=== PATIENT | female | born 1945 | race Caucasian/White ===

== ENCOUNTER 2016-11-22 16:27 | Inpatient (IN) | payer MEDICARE, OTHER ==
[~2016-11-22] VITALS: Ht 162.6 cm; Wt 49.9 kg
[2016-11-22] MEDS ORDERED: CEFTRIAXONE 1GM BAG (ER ONLY) 50 ML IV ONE ×2 (16:56→17:00)
[2016-11-22] MEDS ORDERED: IV SET PRIMARY PUMP SET 1 EA INFUS.SET MC ONE (16:56)
[2016-11-22] MEDS ORDERED: IV NS 0.9% 1,000 ML ONE (16:56)
[2016-11-22] MEDS ORDERED: methylPREDNISolone SOD SUCC 125 MG/2ML VIAL ONE ×2 (16:56→21:40)
[2016-11-22] MEDS ORDERED: AZITHROMYCIN 500 MG in IV D5W 250 ML IV ONE (17:00)
[2016-11-22] MEDS ORDERED: IPRATROPIUM NEB FS 0.5 MG/2.5 ML AMPUL.NEB NEB ONE (17:00)
[2016-11-22] MEDS ORDERED: IV NS 0.9% 1,000 ML BAG IV ONE (17:00)
[2016-11-22] MEDS ORDERED: ALBUTEROL FS 2.5 MG/3 ML VIAL.NEB CONTNEB ONE (17:00)
[2016-11-22] MEDS ORDERED: methylPREDNISolone SOD SUCC 125 MG/2ML VIAL IV ONE (17:00)
[2016-11-22] MEDS ORDERED: IPRATROPIUM NEB FS 0.5 MG/2.5 ML AMPUL.NEB ONE (17:03)
[2016-11-22] MEDS ORDERED: ALBUTEROL FS 2.5 MG/3 ML VIAL.NEB ONE (17:03)
[2016-11-22 17:14] LABS: BASOPHILS % (AUTO) 0.1 % (0.0-2.0); DIFF TOTAL % 100 %; HEMATOCRIT 43 % (33-45); LYMPHOCYTES # (AUTO) 0.5 /CMM (0.8-4.8); LYMPHOCYTES % (AUTO) 5.3 % (20.0-44.0); MEAN CORPUSCULAR HEMOGLOBIN 31 PG (26.0-33.0); MEAN CORPUSCULAR HGB CONC 33 g/dl (31.0-36.0); MEAN CORPUSCULAR VOLUME 94 fL (82-100); MONOCYTES # (AUTO) 0.6 /CMM (0.1-1.30); NEUTROPHILS # (AUTO) 9.2 /CMM (1.8-8.9); NEUTROPHILS % (AUTO) 88.6 % (43.0-81.0); PLATELET COUNT (AUTO) 266 /CMM (150-450); RED BLOOD CELL COUNT(AUTO) 4.53 MIL/uL (4.0-5.2); WHITE BLOOD COUNT (AUTO) 10.4 K/uL (4.3-11.0)
[2016-11-22 17:22] LABS: ANION GAP 14 (5-14); CALCIUM, SERUM 9.5 mg/dL (8.5-10.1); CARBON DIOXIDE 26 mmol/L (21-32); CHLORIDE 97 mmol/L (98-107); CREATININE 0.7 mg/dL (0.6-1.3); GFR 83 mL/min (>60); GLUCOSE 163 mg/dL (74-106); POTASSIUM 3.8 mmol/L (3.5-5.1); SODIUM SERUM 133 mmol/L (136-145); UREA NITROGEN, BLOOD 8 mg/dL (7-18)
[2016-11-22 17:29] LABS: TROPONIN I < 0.017 ng/mL (0.00-0.056)
[2016-11-22 17:34] LABS: ALANINE AMINOTRANSFERASE 21 U/L (12-78); ALBUMIN 3.6 g/dL (3.4-5.0); ASPARTATE AMINOTRANSFERASE 19 U/L (15-37); BILIRUBIN,DIRECT 0.2 mg/dL (0.0-0.2); BILIRUBIN,TOTAL 0.7 mg/dL (0.2-1.0); INDIRECT BILIRUBIN 0.5 mg/dL (0.0-1.1); TOTAL PROTEIN, SERUM 7.7 g/dL (6.4-8.2)
[2016-11-22 17:48] LABS: LACTIC ACID 1.4 mmol/L (0.4-2.0)
[2016-11-22 20:00] VITALS: BP_SYST 124; BP_SYST 126; BP_DIAS 57; BP_DIAS 81
[2016-11-22] MEDS ORDERED: ZOLPIDEM TARTRATE 5 MG TABLET PO PRN (20:00)
[2016-11-22] MEDS ORDERED: ACETAMINOPHEN 325 MG TABLET PO PRN (20:00)
[2016-11-22] MEDS ORDERED: ONDANSETRON HCL/PF 4 MG/2 ML VIAL IVP PRN (20:00)
[2016-11-22] MEDS ORDERED: LORAZEPAM INJ 2 MG/ML VIAL IV PRN (20:00)
[2016-11-22] MEDS ORDERED: HYDROCODONE/APAP 5/325MG 1 EACH TABLET PO PRN (20:00)
[2016-11-22] MEDS ORDERED: MAGNESIUM HYDROXIDE 30 ML UDC PO PRN (20:00)
[2016-11-22] MEDS ORDERED: MAG HYDROX/AL HYDROX/SIMETH 30 ML UDC PO PRN (20:00)
[2016-11-22] MEDS ORDERED: Z GUARD REMEDY 2 OZ OINT TP PRN (20:00)
[2016-11-22] MEDS: AZITHROMYCIN 500 MG in IV D5W 250 ML IV SCH (20:00)
[2016-11-22] MEDS ORDERED: ENOXAPARIN SODIUM 40 MG/0.4 ML DISP.SYRIN SQ SCH (21:00)
[2016-11-22] MEDS: methylPREDNISolone SOD SUCC 125 MG/2ML VIAL IV SCH (21:00)
[2016-11-22] MEDS: ALBUTEROL FS 2.5 MG/0.5 ML VIAL.NEB NEB SCH (22:42)
[2016-11-23] VITALS (9 sets, daily range): BP systolic 103–133; BP diastolic 50–70
[2016-11-23] MEDS: ALBUTEROL FS 2.5 MG/0.5 ML VIAL.NEB NEB SCH ×6 (03:19→23:45)
[2016-11-23 08:27] LABS: DIFF TOTAL % 100 %; HEMATOCRIT 40 % (33-45); HEMOGLOBIN 13.1 g/dL (11.5-14.8); LYMPHOCYTES # (AUTO) 0.5 /CMM (0.8-4.8); LYMPHOCYTES % (AUTO) 5.6 % (20.0-44.0); MEAN CORPUSCULAR HEMOGLOBIN 32 PG (26.0-33.0); MEAN CORPUSCULAR HGB CONC 33 g/dl (31.0-36.0); MEAN CORPUSCULAR VOLUME 95 fL (82-100); MONOCYTES # (AUTO) 0.2 /CMM (0.1-1.30); MONOCYTES % (AUTO) 1.9 % (2.0-12.0); NEUTROPHILS # (AUTO) 8.1 /CMM (1.8-8.9); NEUTROPHILS % (AUTO) 92.5 % (43.0-81.0); PLATELET COUNT (AUTO) 264 /CMM (150-450); RED BLOOD CELL COUNT(AUTO) 4.14 MIL/uL (4.0-5.2); WHITE BLOOD COUNT (AUTO) 8.8 K/uL (4.3-11.0)
[2016-11-23 08:40] LABS: CALCIUM, SERUM 9.5 mg/dL (8.5-10.1); CREATININE 0.6 mg/dL (0.6-1.3); POTASSIUM 4.7 mmol/L (3.5-5.1)
[2016-11-23] MEDS: PANTOPRAZOLE 40 MG TABLET.DR PO SCH (09:23)
[2016-11-23] MEDS: methylPREDNISolone SOD SUCC 125 MG/2ML VIAL IV SCH ×4 (09:24→21:55)
[2016-11-23] MEDS ORDERED: IV SET PRIMARY PUMP SET 1 EA INFUS.SET MC ONE (20:00)
[2016-11-23] MEDS: AZITHROMYCIN 500 MG in IV D5W 250 ML IV SCH (20:07)
[2016-11-23] MEDS: ENOXAPARIN SODIUM 40 MG/0.4 ML DISP.SYRIN SQ SCH (21:56)
[2016-11-24] MEDS: ALBUTEROL FS 2.5 MG/0.5 ML VIAL.NEB NEB SCH ×6 (03:13→23:30)
[2016-11-24 06:52] LABS: DIFF TOTAL % 100 %; HEMATOCRIT 40 % (33-45); HEMOGLOBIN 13.1 g/dL (11.5-14.8); LYMPHOCYTES # (AUTO) 0.7 /CMM (0.8-4.8); LYMPHOCYTES % (AUTO) 5.6 % (20.0-44.0); MEAN CORPUSCULAR HEMOGLOBIN 31 PG (26.0-33.0); MEAN CORPUSCULAR HGB CONC 33 g/dl (31.0-36.0); MEAN CORPUSCULAR VOLUME 96 fL (82-100); MONOCYTES # (AUTO) 0.6 /CMM (0.1-1.30); MONOCYTES % (AUTO) 4.8 % (2.0-12.0); NEUTROPHILS # (AUTO) 11.3 /CMM (1.8-8.9); NEUTROPHILS % (AUTO) 89.6 % (43.0-81.0); PLATELET COUNT (AUTO) 300 /CMM (150-450); RED BLOOD CELL COUNT(AUTO) 4.18 MIL/uL (4.0-5.2); WHITE BLOOD COUNT (AUTO) 12.6 K/uL (4.3-11.0)
[2016-11-24 07:15] LABS: CALCIUM, SERUM 9.6 mg/dL (8.5-10.1); CREATININE 0.8 mg/dL (0.6-1.3); PHOSPHORUS 3.9 mg/dL (2.5-4.9); POTASSIUM 3.7 mmol/L (3.5-5.1)
[2016-11-24 08:00] VITALS: BP 130/68
[2016-11-24] MEDS: PANTOPRAZOLE 40 MG TABLET.DR PO SCH (08:14)
[2016-11-24] MEDS: methylPREDNISolone SOD SUCC 125 MG/2ML VIAL IV SCH ×3 (08:15→18:01)
[2016-11-24 16:00] VITALS: BP 104/47
[2016-11-24 19:54] VITALS: BP 103/50
[2016-11-24] MEDS: AZITHROMYCIN 500 MG in IV D5W 250 ML IV SCH (20:56)
[2016-11-24] MEDS: ENOXAPARIN SODIUM 40 MG/0.4 ML DISP.SYRIN SQ SCH (21:13)
[2016-11-25] MEDS: ALBUTEROL FS 2.5 MG/0.5 ML VIAL.NEB NEB SCH ×4 (03:30→15:30)
[2016-11-25 07:21] LABS: DIFF TOTAL % 100 %; HEMATOCRIT 39 % (33-45); HEMOGLOBIN 12.8 g/dL (11.5-14.8); LYMPHOCYTES # (AUTO) 1.1 /CMM (0.8-4.8); LYMPHOCYTES % (AUTO) 7.3 % (20.0-44.0); MEAN CORPUSCULAR HEMOGLOBIN 31 PG (26.0-33.0); MEAN CORPUSCULAR HGB CONC 33 g/dl (31.0-36.0); MEAN CORPUSCULAR VOLUME 95 fL (82-100); MONOCYTES # (AUTO) 0.9 /CMM (0.1-1.30); MONOCYTES % (AUTO) 6.4 % (2.0-12.0); NEUTROPHILS # (AUTO) 12.7 /CMM (1.8-8.9); NEUTROPHILS % (AUTO) 86.3 % (43.0-81.0); PLATELET COUNT (AUTO) 312 /CMM (150-450); RED BLOOD CELL COUNT(AUTO) 4.09 MIL/uL (4.0-5.2); WHITE BLOOD COUNT (AUTO) 14.7 K/uL (4.3-11.0)
[2016-11-25 07:39] LABS: CALCIUM, SERUM 9.1 mg/dL (8.5-10.1); CREATININE 0.7 mg/dL (0.6-1.3)
[2016-11-25 08:00] VITALS: BP 130/64
[2016-11-25] MEDS: methylPREDNISolone SOD SUCC 125 MG/2ML VIAL IV SCH ×2 (09:36→16:31)
[2016-11-25] MEDS: PANTOPRAZOLE 40 MG TABLET.DR PO SCH (09:36)
[2016-11-25] MEDS ORDERED: PRED20TA PO (13:53)
[2016-11-25] MEDS ORDERED: LEVO750T21 PO (13:53)
[2016-11-25] MEDS ORDERED: PNEUMOCOCCAL 23-VAL P-SAC VAC 0.5 ML VIAL SQ ONE (14:30)
[2016-11-25 16:00] VITALS: BP 127/73
== END 2016-11-25 17:20 | disposition home or self-care (01) | DRG 190 ==
LOC: ER 16:29 → TELE 17:05 → MED 11-23 11:02
PROVIDERS: ADMIT Internal Medicine; ATTEND Internal Medicine
DX: J44.1 Chronic obstructive pulmonary disease with (acute) exacerbation (principal); J15.9 Unspecified bacterial pneumonia; E87.1 Hypo-osmolality and hyponatremia; F17.210 Nicotine dependence, cigarettes, uncomplicated; E86.1 Hypovolemia; R73.9 Hyperglycemia, unspecified; J44.0 Chronic obstructive pulmonary disease with (acute) lower respiratory infection
CPT/HCPCS: 36415; 71010-TC; 80048-TC; 80076-TC; 83605-TC; 83735-TC; 83880; 84100-TC; 84484-TC; 85025-TC; 87040-TC; 87081-TC; 87400; 90732; 94799-TC; A4606; J0456; J0696; J1650; J2930; J7030; J7060; Z7610

== ENCOUNTER 2017-06-01 18:27 | Inpatient (IN) | payer MEDICARE, OTHER ==
[~2017-06-01] VITALS: Ht 157.5 cm; Wt 54.9 kg
[~2017-06-01 18:27] MED LIST: LEVO750T21 PO; PRED20TA PO
--- NOTE | 2017-06-01 18:38 | NUR ---
PT TO ED ROOM 05. [id number]: SOB, COUGH WITH CONGESTION, HYPOXIA. A/A/O. CHANGED TO GOWN. SIDE RAILS UP. HOB ELEVATED. CONNECTE TO MONITOR. O2 VIA N/C. DR GOMES AT BEDSIDE. R FA G 18 IV STARTED. BLOOD TESTS AND BLOOD CULTURES DRAWN PRIOR TO ATB ADMINISTRATION.
[2017-06-01] MEDS ORDERED: ALBUTEROL FS 2.5 MG/0.5 ML VIAL.NEB ONE (18:47)
[2017-06-01] MEDS ORDERED: IPRATROPIUM NEB FS 0.5 MG/2.5 ML AMPUL.NEB ONE (18:47)
[2017-06-01] MEDS ORDERED: methylPREDNISolone SOD SUCC 125 MG/2ML VIAL ONE (18:51)
--- NOTE | 2017-06-01 18:55 | NUR ---
UNABLE TO PROVIDE WITH URINE SAMPLE AT THIS TIME. WILL TRY LATER
[2017-06-01 18:57] LABS: BASOPHILS # (AUTO) 0.1 /CMM (0.0-0.2); BASOPHILS % (AUTO) 1.3 % (0.0-2.0); EOSINOPHILS # (AUTO) 0.1 /CMM (0.0-0.7); EOSINOPHILS % (AUTO) 0.6 % (0.0-6.0); HEMATOCRIT 44 % (33-45); HEMOGLOBIN 14.4 g/dL (11.5-14.8); LYMPHOCYTES # (AUTO) 0.4 /CMM (0.8-4.8); LYMPHOCYTES % (AUTO) 4.9 % (20.0-44.0); MEAN CORPUSCULAR HEMOGLOBIN 31 PG (26.0-33.0); MEAN CORPUSCULAR HGB CONC 33 g/dl (31.0-36.0); MEAN CORPUSCULAR VOLUME 96 fL (82-100); MONOCYTES # (AUTO) 0.2 /CMM (0.1-1.30); MONOCYTES % (AUTO) 2.1 % (2.0-12.0); NEUTROPHILS # (AUTO) 7.6 /CMM (1.8-8.9); NEUTROPHILS % (AUTO) 91.1 % (43.0-81.0); PLATELET COUNT (AUTO) 231 /CMM (150-450); RDW COEFFICIENT OF VARIATION 13.7 (11.5-15.0); WHITE BLOOD COUNT (AUTO) 8.4 K/uL (4.3-11.0)
[2017-06-01] MEDS ORDERED: methylPREDNISolone SOD SUCC 125 MG/2ML VIAL IV ONE (19:00)
[2017-06-01] MEDS ORDERED: ALBUTEROL FS 2.5 MG/0.5 ML VIAL.NEB NEB ONE (19:00)
[2017-06-01] MEDS ORDERED: IPRATROPIUM NEB FS 0.5 MG/2.5 ML AMPUL.NEB NEB ONE (19:00)
[2017-06-01 19:08] LABS: INR 0.95 (0.87-1.13); PROTHROMBIN TIME 9.9 SECS (9.5-12.7)
[2017-06-01 19:11] LABS: ALBUMIN 3.9 g/dL (3.4-5.0); BILIRUBIN,DIRECT 0.1 mg/dL (0.0-0.2); BILIRUBIN,TOTAL 0.4 mg/dL (0.2-1.0); CALCIUM, SERUM 8.3 mg/dL (8.5-10.1); CREATININE 0.6 mg/dL (0.6-1.3); TOTAL PROTEIN, SERUM 6.8 g/dL (6.4-8.2)
[2017-06-01 19:13] LABS: TROPONIN I 0.025 ng/mL (0.00-0.056)
[2017-06-01 20:00] VITALS: BP_SYST 127; BP_SYST 137; BP_DIAS 56; BP_DIAS 63
[2017-06-01] MEDS ORDERED: CEFTRIAXONE 500 MG VIAL IV ONE (20:00)
[2017-06-01] MEDS ORDERED: AZITHROMYCIN 500 MG in IV D5W 250 ML IV SCH (20:00)
[2017-06-01] MEDS ORDERED: AZITHROMYCIN 500 MG in IV D5W 250 ML IV ONE (20:00)
[2017-06-01] MEDS ORDERED: CEFTRIAXONE 500 MG VIAL ONE (20:10)
[2017-06-01 20:50] LABS: ABG BASE EXCESS -3.1 mmol/L; ABG OXYGEN SATURATION 92.8 % (92.0-98.5); ABG PCO2 33.9 mmHg (35.0-45.0); ABG PH 7.405 (7.350-7.450); ABG PO2 65.3 mmHg (75.0-100.0); AaDO2 43.8 mmHg; COHb 2.3 % (0.5-1.5); MetHb 0.5 % (0.0-1.5); O2Hb 90.2 % (94.0-97.0); SITE, ABG Right Brachial; VENT MODE, BG Room Air
--- NOTE | 2017-06-01 21:12 | NUR ---
RN OPENING NOTES PATIENT ARRIVED ON UNIT VIA GURNEY. REPORT RECEIVED FROM [facility] EXAM PROCTOR. PATIENT A/A/O X4, ABLE TO MAKE NEEDS KNOWN. AMBULATORY W/ STANDBY/MINIMAL ASSIST. SOB NOTED AFTER AMBULATING FROM GURNEY TO BED AND ALSO AT REST. O2 SAT 92-94% W/ O2 @ 2LPM VIA NC. ON TELE SINUS RHYTHM. RIGHT WRIST #18 IV SITE CDI W/ ATB RUNNING @ 250 ML/HR. DENIES ANY PAIN @ THIS TIME. SAFETY MEASURES IN PLACE. SIDE RAILS UP, BED LOCKED AND IN LOWEST POSITION, CALL LIGHT WITHIN REACH. BED ALARM ON. WILL CONTINUE TO MONITOR FOR ANY CHANGES.
[2017-06-01 21:30] VITALS: BP 127/56
[2017-06-01] MEDS ORDERED: MAGNESIUM HYDROXIDE 30 ML UDC PO PRN (22:30)
[2017-06-01] MEDS ORDERED: ONDANSETRON HCL/PF 4 MG/2 ML VIAL IVP PRN (22:30)
[2017-06-01] MEDS ORDERED: ACETAMINOPHEN 325 MG TABLET PO PRN (22:30)
[2017-06-01] MEDS ORDERED: HYDROCODONE/APAP 5/325MG 1 EACH TABLET PO PRN (22:30)
[2017-06-01] MEDS ORDERED: ZOLPIDEM TARTRATE 5 MG TABLET PO PRN (22:30)
--- NOTE | 2017-06-01 22:54 | NUR ---
RN NOTES CALLED LORENA, ON-CALL ROLLER PRESSER OPERATOR, REGARDING AZITHROMYCIN IV ORDER. PER ROLLER PRESSER OPERATOR, START NEXT DOSE ON 06/02 @ 8PM.
[2017-06-01] MEDS ORDERED: DEXTROSE 50%-WATER 50 ML DISP.SYRIN IV PRN (23:00)
[2017-06-02] VITALS: BP 113/56
[2017-06-02 04:00] VITALS: BP 126/61
[2017-06-02] MEDS ORDERED: ALBUTEROL FS 2.5 MG/0.5 ML VIAL.NEB ONE (07:07)
[2017-06-02 07:10] LABS: HEMATOCRIT 41 % (33-45); HEMOGLOBIN 13.9 g/dL (11.5-14.8); LYMPHOCYTES # (AUTO) 0.3 /CMM (0.8-4.8); LYMPHOCYTES % (AUTO) 5.8 % (20.0-44.0); MEAN CORPUSCULAR HEMOGLOBIN 33 PG (26.0-33.0); MEAN CORPUSCULAR HGB CONC 34 g/dl (31.0-36.0); MEAN CORPUSCULAR VOLUME 96 fL (82-100); MONOCYTES # (AUTO) 0.1 /CMM (0.1-1.30); MONOCYTES % (AUTO) 1.5 % (2.0-12.0); NEUTROPHILS # (AUTO) 5.5 /CMM (1.8-8.9); NEUTROPHILS % (AUTO) 92.7 % (43.0-81.0); PLATELET COUNT (AUTO) 190 /CMM (150-450); RDW COEFFICIENT OF VARIATION 14.6 (11.5-15.0); RED BLOOD CELL COUNT(AUTO) 4.26 MIL/uL (4.0-5.2)
[2017-06-02] MEDS: IPRATROPIUM NEB FS 0.5 MG/2.5 ML AMPUL.NEB NEB SCH ×3 (07:10→19:50)
[2017-06-02] MEDS: ALBUTEROL FS 2.5 MG/0.5 ML VIAL.NEB NEB SCH ×3 (07:11→19:50)
[2017-06-02] MEDS: PANTOPRAZOLE 40 MG TABLET.DR PO SCH (07:30)
--- NOTE | 2017-06-02 07:32 | NUR ---
RN CLOSING NOTES PATIENT RESTING IN BED. NO C/O SOB @ THIS TIME. DENIES ANY PAIN OR DISCOMFORT. O2 SAT @ 93-96% THROUGHOUT SHIFT ON 02 @ 2LPM VIA NC. RIGHT WRIST IV SITE KEPT CLEAN AND DRY. NO SIGNIFICANT CHANGES OVERNIGHT. WILL ENDORSE [place] TO AM NURSE.
[2017-06-02 07:43] LABS: CALCIUM, SERUM 8.7 mg/dL (8.5-10.1); CREATININE 0.6 mg/dL (0.6-1.3); PHOSPHORUS 4.1 mg/dL (2.5-4.9); POTASSIUM 4.3 mmol/L (3.5-5.1)
[2017-06-02] MEDS: BLOOD SUGAR DIAGNOSTIC 1 EACH STRIP IN SCH ×4 (07:57→21:59)
[2017-06-02 08:00] VITALS: BP 100/40
--- NOTE | 2017-06-02 08:00 | NUR ---
TELE1/RN AM SHIFT INITIAL NOTES RECEIVED PT AWAKE SITTING IN BED, A/O X 4, NO ACUTE RESPIRATORY DISTRESS NOTED. PT DENIES ANY PAIN. PT NOTED WITH NON-PRODUCTIVE COUGH, ON 2L O2 VIA N/C SATURATING @ 96%, LUNG SOUNDS DIMINISHED. ON TELE MONITORING WITH SINUS RHYTHM, HR 74. IV SITE FLUSHED, PATENT WITH NO S/S OF INFECTION, SL. PT IS COMFORTABLE AT THIS TIME. SCHEDULED AM MEDS TO BE GIVEN. CL WITHIN REACHED AND SAFETY MAINTAINED. ON GOING MONITORING.
[2017-06-02] MEDS: methylPREDNISolone SOD SUCC 125 MG/2ML VIAL IV SCH ×3 (08:54→17:47)
[2017-06-02] MEDS: INSULIN REGULAR, HUMAN 100 UNIT/ML 3 ML VIAL SQ PRN ×4 (08:57→22:02)
[2017-06-02 12:00] VITALS: BP 111/44
--- NOTE | 2017-06-02 12:59 | NUR ---
TELE1/RN ROUNDS - LANI GILL PT SEEN & EXAMINED BY LANI GILL, NO NEW ORDERS RECEIVED AT THIS TIME. MONITORING CONTINUED.
[2017-06-02 16:00] VITALS: BP 113/35
--- NOTE | 2017-06-02 16:00 | NUR ---
TELE1/RN AFTERNOON ROUNDS NO ACUTE CHANGE OF CONDITION. MONITORING CONTINUED.
--- NOTE | 2017-06-02 19:11 | NUR ---
TELE1/RN AM SHIFT END NOTES ALL NEEDS MET. NO ACUTE CHANGE OF CONDITION NOTED DURING THE SHIFT. PT ENDORSED TO PM NURSE TO CONTINUE CARE. CL WITHIN REACHED AND SAFETY MAINTAINED.
--- NOTE | 2017-06-02 19:20 | NUR ---
POWER PLANT TECHNICIAN NOTE PT RECEIVED IN NO ACUTE DISTRESS. A/O X4 AND ABLE TO MAKE NEEDS BE KNOWN. ON 2LPM 02 VIA NC THAT IS BEING TOLERATED WELL WITH 02 SATURATION AT 96% WITH ADEQUATE CHEST RISE/FALL. PT IS ABLE TO GET UP AND WALK TO BATHROOM WITH STANDBY ASSISTANCE. HAS A RIGHT WRIST 18G SL THAT IS CLEAN DRY AND PATENT. COMFORT AND SAFETY MEASURES TO BE ENSURED DURING THE SHIFT. WILL CONTINUE TO MONITOR DURING THE SHIFT.
[2017-06-02 20:00] VITALS: BP 103/45
[2017-06-02] MEDS: AZITHROMYCIN 500 MG in IV D5W 250 ML IV SCH (20:12)
[2017-06-03] VITALS: BP 113/62
[2017-06-03 04:00] VITALS: BP 114/54
--- NOTE | 2017-06-03 05:51 | NUR ---
ELECTRONICS ASSEMBLER CLOSING NOTE PT REMAINS IN NO ACUTE DISTRESS AT THE END OF THE SHIFT. ALL DUE ORDERS ADMINISTERED AND TOLERATED. PT HAS 2LPM 02 VIA NC CURRENTLY. IV IS CLEAN DRY AND INTACT. COMFORT AND SAFETY MEASURES ENSURED DURING THE SHIFT. WILL ENDORSE CARE TO AM NURSE.
[2017-06-03 08:00] VITALS: BP 127/68
[2017-06-03] MEDS: methylPREDNISolone SOD SUCC 125 MG/2ML VIAL IV SCH ×3 (08:12→17:50)
[2017-06-03] MEDS: PANTOPRAZOLE 40 MG TABLET.DR PO SCH (08:13)
[2017-06-03] MEDS: BLOOD SUGAR DIAGNOSTIC 1 EACH STRIP IN SCH ×4 (08:14→22:36)
[2017-06-03] MEDS: INSULIN REGULAR, HUMAN 100 UNIT/ML 3 ML VIAL SQ PRN (08:20)
[2017-06-03] MEDS: IPRATROPIUM NEB FS 0.5 MG/2.5 ML AMPUL.NEB NEB SCH ×3 (08:29→19:32)
[2017-06-03] MEDS: ALBUTEROL FS 2.5 MG/0.5 ML VIAL.NEB NEB SCH ×3 (08:29→19:32)
[2017-06-03 12:00] VITALS: BP 113/52
--- NOTE | 2017-06-03 12:00 | NUR ---
RN NOTE PT REFUSED REGULAR INSULIN INJECTION REISKS AND BENEFITS EXPLAINED, STILL REFUSED, BG = 138 MG/DL, WILL CONTINUE TO MONITOR.
[2017-06-03 13:10] LABS: BASOPHILS % (AUTO) 0.1 % (0.0-2.0); HEMATOCRIT 41 % (33-45); HEMOGLOBIN 13.6 g/dL (11.5-14.8); LYMPHOCYTES # (AUTO) 0.4 /CMM (0.8-4.8); MEAN CORPUSCULAR HEMOGLOBIN 32 PG (26.0-33.0); MEAN CORPUSCULAR HGB CONC 33 g/dl (31.0-36.0); MEAN CORPUSCULAR VOLUME 96 fL (82-100); MONOCYTES # (AUTO) 0.3 /CMM (0.1-1.30); MONOCYTES % (AUTO) 1.6 % (2.0-12.0); NEUTROPHILS # (AUTO) 21.1 /CMM (1.8-8.9); NEUTROPHILS % (AUTO) 96.3 % (43.0-81.0); PLATELET COUNT (AUTO) 216 /CMM (150-450); RDW COEFFICIENT OF VARIATION 14.8 (11.5-15.0); RED BLOOD CELL COUNT(AUTO) 4.29 MIL/uL (4.0-5.2); WHITE BLOOD COUNT (AUTO) 21.9 K/uL (4.3-11.0)
[2017-06-03 13:27] LABS: CALCIUM, SERUM 8.5 mg/dL (8.5-10.1); CREATININE 0.8 mg/dL (0.6-1.3); MAGNESIUM 1.9 mg/dL (1.8-2.4); POTASSIUM 3.9 mmol/L (3.5-5.1)
[2017-06-03 16:00] VITALS: BP 105/52
--- NOTE | 2017-06-03 17:56 | NUR ---
BLOOD SUGAR 177- PATIENT REFUSED INSULIN. EDUCATION PROVIDED ABOUT RISKS OF HYPERGLYCEMIA, PATIENT CONTINUES TO REFUSE. NO ABNORMAL S/S OF HYPERGLYCEMIA AT THIS TIME.
--- NOTE | 2017-06-03 19:37 | NUR ---
CALL OR CONTACT CENTRE MANAGER INITIAL NOTE PT RECEIVED IN NO ACUTE DISTRESS. A/O X4 AND ABLE TO MAKE NEEDS BE KNOWN. ON 2LPM 02 VIA NC THAT IS BEING TOLERATED WELL WITH 02 SATURATION AT 96% WITH ADEQUATE CHEST RISE/FALL. PT IS ABLE TO GET UP AND WALK TO BATHROOM WITH STANDBY ASSISTANCE. HAS A RIGHT WRIST 18G SL THAT IS CLEAN DRY AND PATENT. COMFORT AND SAFETY MEASURES TO BE ENSURED DURING THE SHIFT. WILL CONTINUE TO MONITOR DURING THE SHIFT.
[2017-06-03 20:00] VITALS: BP 121/53
[2017-06-03] MEDS: AZITHROMYCIN 500 MG in IV D5W 250 ML IV SCH (20:12)
--- NOTE | 2017-06-03 22:41 | NUR ---
RN NOTE PT BLOOD SUGAR IS 153. PT REFUSES INSULIN COVERAGE. S/S OF HYPER/HYPOGLYCEMIA WERE EXPLAINED TO THE PT. PT STILL REFUSED STATING THAT IF IT WAS HIGHER SHE WOULD THINK ABOUT IT. WILL CONTINUE TO MONITOR PT FOR ANY CHANGES OR S/S OF HYPER/HYPOGLYCEMIA
[2017-06-04] VITALS: BP 112/57
--- NOTE | 2017-06-04 03:47 | NUR ---
RN NOTE AFTER PT RECEIVED IV MEDICATION, SHE STATED THAT ABOVE THE LINE THAT THERE WAS DISCOMFORT AND THAT IT HURT "A LITTLE BIT" WHEN INFUSING MEDICATION. I ASKED HER IF I COULD START A NEW IV LINE IN ORDER TO AVOID ANY POTENTIAL PROBLEMS BUT SHE SAID "NO, I WILL JUST WAIT UNTIL TOMORROW MORNING AND THEN IF IT STILL DOES THEN WE CAN CHANGE IT". PT WOULD NOT LET ME REMOVE OR START A NEW LINE. WILL CONTINUE TO MONITOR FOR ANY CHANGES. NO REDNESS/INFILTRATION UPON ASSESSMENT.
[2017-06-04 04:00] VITALS: BP 130/61
--- NOTE | 2017-06-04 05:51 | NUR ---
AUTOMOBILE RACER CLOSING NOTE PT REMAINS IN NO ACUTE DISTRESS AT THE END OF THE SHIFT. ALL DUE ORDERS ADMINISTERED AND TOLERATED. PT HAS 2LPM 02 VIA NC CURRENTLY. IV IS CLEAN DRY AND INTACT. COMFORT AND SAFETY MEASURES ENSURED DURING THE SHIFT. WILL ENDORSE CARE TO AM NURSE.
[2017-06-04] MEDS: ALBUTEROL FS 2.5 MG/0.5 ML VIAL.NEB NEB SCH ×3 (07:11→20:13)
[2017-06-04] MEDS: IPRATROPIUM NEB FS 0.5 MG/2.5 ML AMPUL.NEB NEB SCH ×3 (07:11→20:13)
[2017-06-04 07:20] LABS: HEMATOCRIT 42 % (33-45); HEMOGLOBIN 13.9 g/dL (11.5-14.8); LYMPHOCYTES # (AUTO) 0.9 /CMM (0.8-4.8); LYMPHOCYTES % (AUTO) 4.6 % (20.0-44.0); MEAN CORPUSCULAR HEMOGLOBIN 32 PG (26.0-33.0); MEAN CORPUSCULAR HGB CONC 33 g/dl (31.0-36.0); MEAN CORPUSCULAR VOLUME 96 fL (82-100); MONOCYTES # (AUTO) 0.5 /CMM (0.1-1.30); MONOCYTES % (AUTO) 2.9 % (2.0-12.0); NEUTROPHILS # (AUTO) 17.3 /CMM (1.8-8.9); NEUTROPHILS % (AUTO) 92.5 % (43.0-81.0); PLATELET COUNT (AUTO) 229 /CMM (150-450); RDW COEFFICIENT OF VARIATION 14.8 (11.5-15.0); RED BLOOD CELL COUNT(AUTO) 4.35 MIL/uL (4.0-5.2); WHITE BLOOD COUNT (AUTO) 18.7 K/uL (4.3-11.0)
[2017-06-04] MEDS: BLOOD SUGAR DIAGNOSTIC 1 EACH STRIP IN SCH ×4 (07:30→21:19)
[2017-06-04 07:33] LABS: CALCIUM, SERUM 8.8 mg/dL (8.5-10.1); CREATININE 0.6 mg/dL (0.6-1.3)
--- NOTE | 2017-06-04 07:52 | NUR ---
AM RN NOTE Received patient awake, A/O X3 verbally responsive. No acute distress noted. On O2 2L/min via NC. On tele monitor, SR 70. Bed in low locked position. Will continue to monitor.
[2017-06-04 08:00] VITALS: BP 122/71
[2017-06-04] MEDS: PANTOPRAZOLE 40 MG TABLET.DR PO SCH (08:21)
[2017-06-04] MEDS: methylPREDNISolone SOD SUCC 125 MG/2ML VIAL IV SCH ×3 (08:21→17:23)
[2017-06-04 12:00] VITALS: BP 126/63
[2017-06-04 16:00] VITALS: BP 107/68
--- NOTE | 2017-06-04 16:30 | NUR ---
AM RN NOTE Patient's IV site noted with leakage, re-inserted new site on right hand #22 x1 attempt.
--- NOTE | 2017-06-04 17:45 | NUR ---
AM RN NOTE BS 155MG/DL, PATIENT REFUSED INSULIN STATED "I DON'T NEED IT". EXPLAINED BENEFITS BUT STILL REFUSED.
--- NOTE | 2017-06-04 18:31 | NUR ---
AM RN NOTE Patient resting in her bed, no acute distress noted. IV site intact and patent. Will endorse care to next shift.
--- NOTE | 2017-06-04 19:05 | NUR ---
RN INITIAL NOTES RECEIVED PATIENT IN BED, AWAKE AND ALERT. ON 2LPM OF O2 VIA NC, PATIENT DENIES ANY SOB, NO DISCOMFORT AND DISTRESS. SR ON TELE WITH HR OF 72. L HAND G22, INTACT AND PATENT, ON SL. PATIENT'S NEEDS ANTICIPATED AND MET. SAFETY AND COMFORT ENSURED. BED IN LOW AND LOCKED POSITION. CALL LIGHT IN REACH. WILL MONITOR.
[2017-06-04 20:00] VITALS: BP 131/47
[2017-06-04] MEDS: AZITHROMYCIN 500 MG in IV D5W 250 ML IV SCH (21:13)
--- NOTE | 2017-06-04 21:42 | NUR ---
RN NOTES BS= 158. PATIENT REFUSED INSULIN TO BE GIVEN.PATIENT WITH NO HX OF DM, CURRENTLY ON SOLU-MEDROL ORDERED. PATIENT EDUCATED WITH RISKS AND BENEFITS, PATIENT IS ALERT AND ORIENTED, REFUSED INSULIN, VERBALIZED UNDERSTANDING.
[2017-06-05] VITALS (7 sets, daily range): BP systolic 114–143; BP diastolic 56–87
--- NOTE | 2017-06-05 06:32 | NUR ---
RN CLOSING NOTES PATIENT IS SLEEPING COMFORTABLY IN BED, O2 SUPPLEMENTATION CONTINUOUS AT 2LPM OF O2 VIA NC. NO RESPIRATORY DISTRESS. OCCASIONAL COUGHING NOTED, NON-PRODUCTIVE. BREATHING TREATMENT RENDERED ORDERED. NEEDS ANTICIPATED AND MET. SAFETY AND COMFORT ENSURED. BED IN LOW AND LOCKED POSITION. CALL LIGHT IN REACH. WILL ENDORSE ACCORDINGLY FOR CONTINUITY OF CARE.
[2017-06-05 07:17] LABS: BASOPHILS % (AUTO) 0.1 % (0.0-2.0); HEMATOCRIT 40 % (33-45); HEMOGLOBIN 13.6 g/dL (11.5-14.8); LYMPHOCYTES % (AUTO) 8.3 % (20.0-44.0); MEAN CORPUSCULAR HEMOGLOBIN 32 PG (26.0-33.0); MEAN CORPUSCULAR HGB CONC 34 g/dl (31.0-36.0); MEAN CORPUSCULAR VOLUME 96 fL (82-100); MONOCYTES # (AUTO) 0.4 /CMM (0.1-1.30); MONOCYTES % (AUTO) 3.7 % (2.0-12.0); NEUTROPHILS # (AUTO) 10.6 /CMM (1.8-8.9); NEUTROPHILS % (AUTO) 87.9 % (43.0-81.0); PLATELET COUNT (AUTO) 201 /CMM (150-450); RDW COEFFICIENT OF VARIATION 14.6 (11.5-15.0); RED BLOOD CELL COUNT(AUTO) 4.21 MIL/uL (4.0-5.2); WHITE BLOOD COUNT (AUTO) 12.1 K/uL (4.3-11.0)
--- NOTE | 2017-06-05 07:30 | NUR ---
RN NOTES RECEIVED PATIENT IN BED ALERT, AWAKE, ORIENTED X3 WITH BREATHING NORMAL, EVEN AND UNLABORED. NO SOB NOTED. ON 2L O2 VIA NC, SATURATING WELL. NO ACUTE DISTRESS NOTED. TELE MONITOR REVEALS SR, HR=72. IV L HAND 22G IS PATENT AND INTACT, NO INFILTRATION NOTED. BOWEL SOUND PRESENT. PULSES PRESENT. SAFETY MEASURE OBSERVED. CALL LIGHT WITH IN REACH. WILL CONT TO MONITOR.
[2017-06-05] MEDS: ALBUTEROL FS 2.5 MG/0.5 ML VIAL.NEB NEB SCH ×3 (07:35→20:31)
[2017-06-05] MEDS: IPRATROPIUM NEB FS 0.5 MG/2.5 ML AMPUL.NEB NEB SCH ×3 (07:35→20:31)
[2017-06-05 07:58] LABS: CALCIUM, SERUM 8.3 mg/dL (8.5-10.1); CREATININE 0.6 mg/dL (0.6-1.3); POTASSIUM 4.5 mmol/L (3.5-5.1)
[2017-06-05] MEDS: PANTOPRAZOLE 40 MG TABLET.DR PO SCH (08:23)
[2017-06-05] MEDS: methylPREDNISolone SOD SUCC 125 MG/2ML VIAL IV SCH (08:24)
[2017-06-05] MEDS: BLOOD SUGAR DIAGNOSTIC 1 EACH STRIP IN SCH ×4 (08:24→21:47)
[2017-06-05] MEDS: INSULIN REGULAR, HUMAN 100 UNIT/ML 3 ML VIAL SQ PRN ×3 (12:56→21:48)
--- NOTE | 2017-06-05 19:06 | NUR ---
RN NOTES PATIENT ENDORSED TO NEXT SHIFT IN STABLE CONDITION WITH BREATHING NORMAL, EVEN AND UNLABORED. NO SOB NOTED. KEPT CLEAN, DRY AND COMFORTABLE. ALL NEEDS ATTENDED. SAFETY MEASURE OBSERVED. CALL LIGHT WITH IN REACH. WILL CONT TO MONITOR.
--- NOTE | 2017-06-05 19:30 | NUR ---
RN NOTES: -RECEIVED ON SITTING POSITION ON HER BED,ALERT AND ORIENTED X 3, ABLE TO MAKE NEEDS KNOWN, ON 02 AT 2L/MIN,NO SIGN OF SOB,NO SIGN OF ACUTE RESPIRATORY DISTRESS NOTED, ON TELE MONITORING SINUS RHYTHM RATE:81,LEFT HAND G#22,,FALL,SAFETY AND ASPIRATION PRECAUTION OBSERVE, BED LOW AND LOCKED, CALL LIGHT WITH IN EASY REACH.
[2017-06-05] MEDS: AZITHROMYCIN 500 MG in IV D5W 250 ML IV SCH (20:58)
--- NOTE | 2017-06-05 21:30 | NUR ---
RN NOTES: CALLED TO SEE THE PATIENT IV CANNULA OUT, INFILTRATION NOTED, IV CANNULA REMOVED, SHE REQUEST TO REINSERT IT LATER,WARM COMPRESS DONE TO REDUCE SWELLING, PATIENT FELT COMFORTABLE AFTER IT WAS DONE.KEPT MONITORED. Addendum: 06/06/17 at 0006 by BRYANT WATKINS RN CORRECTION:COLD COMPRESS DONE, NOT WARM COMPRESS AND ELEVATE LUE.
--- NOTE | 2017-06-05 21:49 | NUR ---
RN NOTES: BLOOD SUGAR CHECK 111. INSULIN NOT GUVEN PER SCALE, NASRA CONTINUE TO MONITOR FOR SIGN OF HYPER AND HYPOGLYCEMIA.CALL LIGHT WITHIN EASY REACH, SHE DID NOT AGREE FOR IV REINSERTION SHE REQUEST IT TO BE DONE LATER.
--- NOTE | 2017-06-05 22:25 | NUR ---
RN NOTES; AGREE FOR IV REINSERTION,INSERTED ON THE RFA GAUGE#22, 1 ATTEMPT WITH GOOD BACK FLOW, SECURED WITH TRANSPARENT DRESSING.CONTINUE IV/ATB.
[2017-06-06] VITALS: BP 119/42
[2017-06-06 04:00] VITALS: BP 126/57
--- NOTE | 2017-06-06 05:13 | NUR ---
RN NOTES: ASLEEP IN THE NIGHT, CALLS AND NEEDS ATTENDED, NO COMPLAINTS PAIN OR DISCOMFORT.
[2017-06-06] MEDS: BLOOD SUGAR DIAGNOSTIC 1 EACH STRIP IN SCH ×2 (06:15→12:00)
--- NOTE | 2017-06-06 06:15 | NUR ---
RN NOTES: AWAKE, NEEDS ATTENDED, BLOOD SUGAR CHECK-79, NO INSULIN GIVEN PER SCALE, WEIGHT LFWXZ=662 LBS.,NO SIGN OF HYPER OR HYPOGLYCEMIA NOTED, SHE IS DRINKING HER TEA AFTER BLOOD SUGAR CHECK.CALL LIGHT WITHIN EASY REACH.
--- NOTE | 2017-06-06 06:45 | NUR ---
RN NOTES: TAKING A NAP IN BETWEEN, ON SINUS RHYTHMS=63,AWAITING FOR HER BREAKFAST TO BE SERVE,WEIGHT ODOOG=534, NO PAIN OR DISCOMFORT, ENDORSED TO NEXT SHIFT FOR CONTINUITY OF CARE.
[2017-06-06 07:30] LABS: BASOPHILS % (AUTO) 0.2 % (0.0-2.0); EOSINOPHILS % (AUTO) 0.1 % (0.0-6.0); HEMATOCRIT 44 % (33-45); HEMOGLOBIN 14.6 g/dL (11.5-14.8); LYMPHOCYTES # (AUTO) 2.7 /CMM (0.8-4.8); LYMPHOCYTES % (AUTO) 23.5 % (20.0-44.0); MEAN CORPUSCULAR HEMOGLOBIN 32 PG (26.0-33.0); MEAN CORPUSCULAR HGB CONC 33 g/dl (31.0-36.0); MEAN CORPUSCULAR VOLUME 97 fL (82-100); MONOCYTES # (AUTO) 0.8 /CMM (0.1-1.30); MONOCYTES % (AUTO) 6.7 % (2.0-12.0); NEUTROPHILS # (AUTO) 7.9 /CMM (1.8-8.9); NEUTROPHILS % (AUTO) 69.5 % (43.0-81.0); PLATELET COUNT (AUTO) 231 /CMM (150-450); RDW COEFFICIENT OF VARIATION 14.7 (11.5-15.0); RED BLOOD CELL COUNT(AUTO) 4.55 MIL/uL (4.0-5.2); WHITE BLOOD COUNT (AUTO) 11.4 K/uL (4.3-11.0)
[2017-06-06 08:00] VITALS: BP 126/45
--- NOTE | 2017-06-06 08:37 | NUR ---
PATIENT RECEIVED AWAKE,NO ACUTE DISTRESS,NO ARRYTHMIA.
[2017-06-06] MEDS: PANTOPRAZOLE 40 MG TABLET.DR PO SCH (08:38)
[2017-06-06 08:39] VITALS: BP 126/45
[2017-06-06] MEDS: ALBUTEROL FS 2.5 MG/0.5 ML VIAL.NEB NEB SCH ×2 (08:42→13:30)
[2017-06-06] MEDS: IPRATROPIUM NEB FS 0.5 MG/2.5 ML AMPUL.NEB NEB SCH ×2 (08:42→13:30)
[2017-06-06] MEDS ORDERED: predniSONE 10 MG TABLET PO SCH (09:00)
[2017-06-06 12:00] VITALS: BP_SYST 102; BP_SYST 126; BP_DIAS 45; BP_DIAS 53
--- NOTE | 2017-06-06 12:00 | NUR ---
finger stick at lunchtime= 122
[2017-06-06] MEDS ORDERED: TIOT18CA3 INH (13:37)
[2017-06-06] MEDS ORDERED: MONT10TA22 PO (13:37)
[2017-06-06] MEDS ORDERED: PRED5TAB48 PO (13:37)
[2017-06-06] MEDS ORDERED: FLUT1DIS3 INH (13:37)
[2017-06-06] MEDS ORDERED: PRED20TA PO (13:37)
[2017-06-06] MEDS ORDERED: ALBUT2 CONTNEB (13:37)
--- NOTE | 2017-06-06 14:27 | NUR ---
discharged medically stable to a waiting care with . IV discontinued. no hematoma noted. discharge instructions along with prescribtion received. O2 sat is 96 to 100 on room air with occasional. some shortness of breath noted with talking. will travel with an O2 tank. will be receiving in home oxygen.
--- NOTE | 2017-06-06 15:00 | NUR ---
dressing change to sacral area completed as ordered. small amount of drainage noted. wound packed with gauze and hydroget as ordered and mepilex applied to wound that needs packing. other wound that did not require packing cleaned with normal saline, hydrogel applied and covered with mepilex. tolerated well
== END 2017-06-06 15:25 | disposition home or self-care (01) | DRG 189 ==
LOC: ER 18:29 → TELE1 21:02
PROVIDERS: ADMIT Nurse Practitioner Acute Care; ATTEND Nurse Practitioner Acute Care
DX: J96.21 Acute and chronic respiratory failure with hypoxia (principal); J44.1 Chronic obstructive pulmonary disease with (acute) exacerbation; J44.0 Chronic obstructive pulmonary disease with (acute) lower respiratory infection; F17.210 Nicotine dependence, cigarettes, uncomplicated; D72.829 Elevated white blood cell count, unspecified; T38.0X5A Adverse effect of glucocorticoids and synthetic analogues, initial encounter; R73.9 Hyperglycemia, unspecified; I51.7 Cardiomegaly; J20.9 Acute bronchitis, unspecified
CPT/HCPCS: 36415; 36600; 71010-TC; 80048-TC; 80061-TC; 80076-TC; 82962-TC; 83605-TC; 83735-TC; 84100-TC; 84484-TC; 85025-TC; 85730-TC; 87040-TC; 87081-TC; 94799-TC; A4216; A4606; A6402; J0456; J1815; J2930; J7060; Z7610

== ENCOUNTER 2023-01-27 03:17 | Inpatient (IN) | payer OTHER ==
[~2023-01-27] VITALS: Ht 157.5 cm; Wt 39.9 kg
[~2023-01-27 03:17] MED LIST changes: +ALBUT2 CONTNEB; +FLUT1DIS3 INH; -LEVO750T21 PO; +MONT10TA22 PO; +PRED5TAB48 PO; +TIOT18CA3 INH
--- NOTE | 2023-01-27 03:24 | NUR ---
[id number] FROM HOME C/O SOB X30 MINS. HX COPD. SATTING 97% R/A. TACHYPNIC RR 35. PT A/OX4. CONNECTED PT TO POX AND MONITOR. SAFETY MEASURES IN PLACE.
--- NOTE | 2023-01-27 03:27 | NUR ---
RT CALLED FOR BREATHING TX
[2023-01-27] MEDS ORDERED: IPRATROPIUM NEB FS 0.5 MG/2.5 ML AMPUL.NEB NEB ONE (03:30)
[2023-01-27] MEDS ORDERED: predniSONE 20 MG TABLET PO ONE (03:30)
[2023-01-27] MEDS ORDERED: ALBUTEROL FS 2.5 MG/3 ML VIAL.NEB CONTNEB ONE ×2 (03:30→05:00)
[2023-01-27] MEDS ORDERED: ALBUTEROL FS 2.5 MG/3 ML VIAL.NEB NEB ONE (03:30)
[2023-01-27] MEDS ORDERED: predniSONE 20 MG TABLET ONE (03:30)
--- NOTE | 2023-01-27 03:31 | NUR ---
RAC #20G S/L BLOOD COLLECTED AND SENT TO LAB
--- NOTE | 2023-01-27 03:31 | NUR ---
Pt remain full code with Prednison 60mg PO given. Pt care continue.
--- NOTE | 2023-01-27 03:31 | NUR ---
EMT AT PT'S BEDSIDE FOR EKG
--- NOTE | 2023-01-27 03:32 | NUR ---
METAL SHEET ROLLER OPERATOR AT PT'S BEDSIDE
[2023-01-27] MEDS ORDERED: IPRATROPIUM NEB FS 0.5 MG/2.5 ML AMPUL.NEB ONE (03:42)
[2023-01-27] MEDS ORDERED: ALBUTEROL FS 2.5 MG/3 ML VIAL.NEB ONE ×2 (03:42→05:07)
--- NOTE | 2023-01-27 03:44 | NUR ---
RT AT PT'S BEDSIDE FOR BREATHING TX
--- NOTE | 2023-01-27 03:46 | NUR ---
Leon paez in [facility] - 01/27/23 at 0346 by RYANN RT AT BEDSIDE FOR BREATHING TX
[2023-01-27] MEDS ORDERED: IV NS 0.9% 1,000 ML IV PRN ×2 (04:00)
[2023-01-27 04:05] LABS: BASOPHILS # (AUTO) 0.1 K/uL (0.0-0.2); BASOPHILS % (AUTO) 1.4 % (0.0-2.0); EOSINOPHILS % (AUTO) 2.1 % (0.0-6.0); HEMATOCRIT 47 % (33-45); HEMOGLOBIN 15.2 g/dL (11.5-14.8); LYMPHOCYTES # (AUTO) 1.6 K/uL (0.8-4.8); LYMPHOCYTES % (AUTO) 18.4 % (20.0-44.0); MEAN CORPUSCULAR HGB CONC 33 g/dl (31.0-36.0); MEAN CORPUSCULAR VOLUME 95 fL (82-100); MONOCYTES # (AUTO) 0.7 K/uL (0.1-1.30); MONOCYTES % (AUTO) 7.7 % (2.0-12.0); NEUTROPHILS % (AUTO) 70.4 % (43.0-81.0); PLATELET COUNT (AUTO) 262 K/uL (150-450); RED BLOOD CELL COUNT(AUTO) 4.91 MIL/uL (4.0-5.2); WHITE BLOOD COUNT (AUTO) 8.5 K/uL (4.3-11.0)
[2023-01-27 04:17] LABS: CALCIUM, SERUM 9.3 mg/dL (8.5-10.1); CARBON DIOXIDE 32 mmol/L (21-32); CHLORIDE 97 mmol/L (98-107); CREATININE 0.8 mg/dL (0.6-1.3); GLUCOSE 181 mg/dL (74-106); POTASSIUM 3.2 mmol/L (3.5-5.1); SODIUM SERUM 137 mmol/L (136-145); UREA NITROGEN, BLOOD 17 mg/dL (7-18)
[2023-01-27 04:23] LABS: ALANINE AMINOTRANSFERASE 46 U/L (12-78); ALKALINE PHOSPHATASE 98 U/L (46-116); ASPARTATE AMINOTRANSFERASE 45 U/L (15-37); BILIRUBIN,DIRECT 0.2 mg/dL (0.0-0.2); BILIRUBIN,TOTAL 0.6 mg/dL (0.2-1.0); TOTAL PROTEIN, SERUM 7.1 g/dL (6.4-8.2)
--- NOTE | 2023-01-27 04:25 | NUR ---
CALLED [facility] TO HAVE IMAGES READ, PER TECH, READ TIMES ARE UP TO 2.5 HOURS
--- NOTE | 2023-01-27 04:30 | NUR ---
BOY FRIENDHALLEY: PHONE: [phone] CELL: [phone]
--- NOTE | 2023-01-27 04:42 | NUR ---
TROP 74
--- NOTE | 2023-01-27 04:52 | NUR ---
CALLED RT FOR CONTINUOUS NEBULIZER
[2023-01-27] MEDS ORDERED: ASPIRIN 81 MG TAB.CHEW PO ONE (05:00)
[2023-01-27] MEDS ORDERED: AZITHROMYCIN 500 MG in IV D5W 250 ML IV ONE (05:00)
[2023-01-27] MEDS ORDERED: CEFTRIAXONE 1GM BAG (ER ONLY) 1 GM/50 ML PIGGYBACK IV ONE (05:00)
[2023-01-27] MEDS ORDERED: LABETALOL 20 MG/4 ML VIAL IV ONE (05:00)
[2023-01-27] MEDS ORDERED: CEFTRIAXONE 1GM BAG (ER ONLY) 50 ML IV ONE (05:01)
[2023-01-27] MEDS ORDERED: AZITHROMYCIN 500 MG VIAL ONE (05:01)
[2023-01-27] MEDS ORDERED: ASPIRIN 81 MG TAB.CHEW ONE (05:02)
[2023-01-27] MEDS ORDERED: LABETALOL HCL IV 100MG VIAL ONE (05:02)
--- NOTE | 2023-01-27 05:08 | NUR ---
RT AT PT'S BEDSIDE FOR BREATHING TX
--- NOTE | 2023-01-27 05:09 | NUR ---
COVID ANTIGEN SWAB COLLECTED AND SENT TO LAB
--- NOTE | 2023-01-27 05:37 | NUR ---
LAB AT BEDSIDE
--- NOTE | 2023-01-27 05:37 | NUR ---
CREAM HAULER AT PT'S BEDSIDE
--- NOTE | 2023-01-27 06:13 | NUR ---
PANEL CALL DONE
--- NOTE | 2023-01-27 06:29 | NUR ---
PT PLACED ON 4L O2 VIA NC. PT SATURATING 92% AND COMFORTABLE.
--- NOTE | 2023-01-27 06:40 | NUR ---
PER LAB, LESLY 117
--- NOTE | 2023-01-27 06:40 | NUR ---
Leon paez in [facility] - 01/27/23 at 0640 by RYANN ED MONTOYA, TROP 117
--- NOTE | 2023-01-27 07:18 | NUR ---
GAVE REPORT TO ITZEL KINNEY FOR [place]
--- NOTE | 2023-01-27 07:42 | NUR ---
REPORT GIVEN TO MEDARDO FOR [place]
[2023-01-27 08:00] VITALS: BP 139/72
[2023-01-27] MEDS ORDERED: MAG HYDROX/AL HYDROX/SIMETH 30 ML UDC PO PRN (08:00)
[2023-01-27] MEDS ORDERED: MAGNESIUM HYDROXIDE 30 ML UDC PO PRN (08:00)
[2023-01-27] MEDS ORDERED: Z GUARD REMEDY 4 OZ OINT TP PRN (08:00)
[2023-01-27] MEDS ORDERED: ZOLPIDEM TARTRATE 5 MG TABLET PO PRN (08:00)
[2023-01-27] MEDS ORDERED: ACETAMINOPHEN 325 MG TABLET PO PRN (08:00)
[2023-01-27] MEDS ORDERED: ONDANSETRON HCL/PF 4 MG/2 ML VIAL IVP PRN (08:00)
--- NOTE | 2023-01-27 08:20 | NUR ---
PT TRANSFERRED TO TELE FLOOR WITH ACLS PROTOCOLS IN PLACE
--- NOTE | 2023-01-27 08:30 | NUR ---
RCEIVED PATIENT FROM ER RECEIVED PATIENT FROM ER AT 0830 REPORT RECEIVED FROM ER NURSE CALLED ARNALDO. PATIENT ARRIVED WITH STRETCHER. ON NC 4 LITTERS O2 SAT 97%. BP: 139/72 HR: 86 RR: 18 T: 97.9 NO SOB OR DISTRESS NOTED. PATIENT'S SKIN INTACT WARM TO TOUCH. PATIENT A/Ox 3-4 OBEYS COMMAND. RAC G #20 INTACT AND FLUSHING. PATIENT ON DIAPER. WILL MONITOR THE PATIENT THROUGHTOUT THE DAY.
[2023-01-27] MEDS: ALBUTEROL FS 2.5 MG/3 ML VIAL.NEB NEB SCH ×4 (08:48→20:01)
[2023-01-27] MEDS: IPRATROPIUM NEB FS 0.5 MG/2.5 ML AMPUL.NEB NEB SCH ×4 (08:48→20:01)
[2023-01-27] MEDS ORDERED: PANTOPRAZOLE 40 MG VIAL IV SCH (09:00)
[2023-01-27] MEDS: CEFTRIAXONE 1 G in IV D5W 50 ML IV SCH (09:20)
[2023-01-27] MEDS: AZITHROMYCIN 500 MG in IV D5W 250 ML IV SCH (09:21)
[2023-01-27] MEDS: ASPIRIN 81 MG TAB.CHEW PO SCH (09:21)
[2023-01-27] MEDS: ENOXAPARIN SODIUM 40 MG/0.4 ML DISP.SYRIN SQ SCH (09:22)
[2023-01-27] MEDS ORDERED: POTASSIUM CHLORIDE 20 MEQ POWDER PACKET PO ONE (11:00)
[2023-01-27 12:00] VITALS: BP 158/73
[2023-01-27] MEDS: methylPREDNISolone SOD SUCC 40 MG/ML VIAL IV SCH ×2 (12:48→21:34)
[2023-01-27 16:00] VITALS: BP 157/82
[2023-01-27] MEDS: ATORVASTATIN 40 MG TABLET PO SCH ×2 (16:13→21:28)
[2023-01-27] MEDS: FUROSEMIDE 20 MG TABLET PO SCH (16:13)
[2023-01-27] MEDS: CARVEDILOL 3.125 MG TABLET PO SCH (16:15)
[2023-01-27] MEDS ORDERED: KEY,NONCONTROL,TO KEEP IN PYXI 1 EA MC ONE (17:17)
--- NOTE | 2023-01-27 18:55 | NUR ---
RN CLOSING NOTE RECEIVED PATIENT AWAKE IN BED A/O X4 ON NC 4 LITTERS O2 SAT 97% NO SOB OR DISTRESS NOTED. SKIN INTACT WARM TO TOUCH. OBEYS COMMAND. RAC G #20 INTACT AND FLUSHING. PATIENT ON DIAPER. PATIENT KEPT DRY AND CLEAN, ALL DUE MEDS ADMINISTERED, PATIENT IS SATISFIED, AND WAITING FRO CONTINUE OF CARE. WILL ENDORSE THE PATIENT TO THE PM NURSE FOR [place].
--- NOTE | 2023-01-27 19:10 | NUR ---
FURNITURE REMOVALIST'S ASSISTANT OPEN NOTE RECEIVED PATIENT AWAKE IN BED A/O X4, ON O2 AT 4L VIA NC SAT 97% NO SOB OR DISTRESS NOTED. SKIN INTACT WARM AND DRY TO TOUCH. OBEYS COMMAND. RAC 20GA I/C/D AND FLUSHING WELL. PATIENT ON DIAPER. SAFETY PRECAUTIONS IN PLACE, WILL CONTINUE TO MONITOR
[2023-01-27 20:00] VITALS: BP 146/79
[2023-01-28] VITALS: BP 155/91
[2023-01-28 04:00] VITALS: BP 151/91
[2023-01-28] MEDS: methylPREDNISolone SOD SUCC 40 MG/ML VIAL IV SCH ×3 (04:14→21:09)
--- NOTE | 2023-01-28 06:28 | NUR ---
PRESS WORKER HELPER closing note PT resting in bed, eyes closed, easily aroused by all stimuli, on o2 at 4L via NC, breathing even and unlabored, afebrile, skin warm and dry to touch, R forearm 20 GA SL, I/D/C, all due meds given per MD orders, tolerated well, pt refused bed bath in am, R/B explained x3, pt still refused, stated feeling too tired, all basic needs met and anticipated, will continue to monitor
[2023-01-28 06:58] LABS: BASOPHILS % (AUTO) 0.3 % (0.0-2.0); EOSINOPHILS % (AUTO) 1.5 % (0.0-6.0); HEMATOCRIT 31 % (33-45); HEMOGLOBIN 10.6 g/dL (11.5-14.8); LYMPHOCYTES # (AUTO) 1.3 K/uL (0.8-4.8); LYMPHOCYTES % (AUTO) 21.7 % (20.0-44.0); MEAN CORPUSCULAR HGB CONC 34 g/dl (31.0-36.0); MEAN CORPUSCULAR VOLUME 86 fL (82-100); MONOCYTES # (AUTO) 0.8 K/uL (0.1-1.30); MONOCYTES % (AUTO) 13.3 % (2.0-12.0); NEUTROPHILS # (AUTO) 3.7 K/uL (1.8-8.9); NEUTROPHILS % (AUTO) 63.2 % (43.0-81.0); PLATELET COUNT (AUTO) 157 K/uL (150-450); RED BLOOD CELL COUNT(AUTO) 3.62 MIL/uL (4.0-5.2); WHITE BLOOD COUNT (AUTO) 5.9 K/uL (4.3-11.0)
--- NOTE | 2023-01-28 07:25 | NUR ---
RN OPEN NOTE RECEIVED PATIENT AWAKE IN BED A/O X4 ON NC 4 LITTERS O2 SAT 98% NO SOB OR DISTRESS NOTED. SKIN INTACT WARM TO TOUCH. OBEYS COMMAND. RAC G #20 INTACT AND FLUSHING. PATIENT HAS SACRAL REDNESS .WILL KEEP PATIENT DRY AND CLEAN, ALL SAFETY MEASURES IN PLACE , BED IS AT LOWEST PIOSITION , CALL LIGHT WITHIN REACH , BED SIDE RAILS ARE UP , BED ALARM IS ON .WILL CONTINUE RO FALLOW POC.
[2023-01-28] MEDS: IPRATROPIUM NEB FS 0.5 MG/2.5 ML AMPUL.NEB NEB SCH ×4 (07:48→20:18)
[2023-01-28] MEDS: ALBUTEROL FS 2.5 MG/3 ML VIAL.NEB NEB SCH ×4 (07:48→20:18)
[2023-01-28] MEDS: CEFTRIAXONE 1 G in IV D5W 50 ML IV SCH (07:58)
[2023-01-28] MEDS: ENOXAPARIN SODIUM 40 MG/0.4 ML DISP.SYRIN SQ SCH (07:59)
[2023-01-28 08:00] VITALS: BP 150/94
[2023-01-28] MEDS: LOSARTAN POTASSIUM 25 MG TABLET PO SCH (08:44)
[2023-01-28] MEDS: ASPIRIN 81 MG TAB.CHEW PO SCH (08:44)
[2023-01-28] MEDS: FUROSEMIDE 20 MG TABLET PO SCH (08:44)
[2023-01-28] MEDS: AZITHROMYCIN 500 MG in IV D5W 250 ML IV SCH (08:44)
[2023-01-28] MEDS: CARVEDILOL 3.125 MG TABLET PO SCH ×2 (08:46→16:26)
[2023-01-28 08:51] LABS: CALCIUM, SERUM 9.1 mg/dL (8.5-10.1); CARBON DIOXIDE 26 mmol/L (21-32); CHLORIDE 97 mmol/L (98-107); CREATININE 0.5 mg/dL (0.6-1.3); GLUCOSE 77 mg/dL (74-106); MAGNESIUM 1.8 mg/dL (1.8-2.4); PHOSPHORUS 3.7 mg/dL (2.5-4.9); POTASSIUM 4.4 mmol/L (3.5-5.1); SODIUM SERUM 134 mmol/L (136-145); UREA NITROGEN, BLOOD 15 mg/dL (7-18)
[2023-01-28] MEDS: PANTOPRAZOLE 40 MG/PACK PACK PO SCH (08:57)
[2023-01-28 09:12] LABS: ABG BASE EXCESS 0.3 mmol/L; ABG OXYGEN SATURATION 91.6 % (92.0-98.5); ABG PCO2 35.7 mmHg (35.0-45.0); ABG PH 7.444 (7.350-7.450); ABG PO2 60.6 mmHg (75.0-100.0); AaDO2 154.7 mmHg; MetHb 0.3 % (0.0-1.5); O2Hb 90.4 % (94.0-97.0); SITE, ABG Left Radial; VENT MODE, BG 4LPM NC
[2023-01-28 09:16] LABS: CHOLESTEROL 183 mg/dL (<200); HDL CHOLESTEROL 62 mg/dL (40-60); LDL 107 mg/dL (0-99); THYROID STIMULATING HORMONE 4.288 uIU/mL (0.358-3.74); TRIGLYCERIDES 72 mg/dL (30-150)
[2023-01-28 12:00] VITALS: BP 150/94
[2023-01-28] MEDS ORDERED: FUROSEMIDE 40 MG/4 ML VIAL IV ONE (13:00)
[2023-01-28 16:20] VITALS: BP 155/96
--- NOTE | 2023-01-28 18:39 | NUR ---
RN CLOSING NOTE RECEIVED PATIENT AWAKE IN BED A/O X4 ON NC 4 LITTERS O2 SAT 99% NO SOB OR DISTRESS NOTED. SKIN INTACT WARM TO TOUCH. OBEYS COMMAND. RAC G #20 INTACT AND FLUSHING. PATIENT ON DIAPER. PATIENT KEPT DRY AND CLEAN, ALL DUE MEDS ADMINISTERED, ALL NEEDS WERE MET . WILL ENDORSE TO THE ICE CREAM TRUCK DRIVER NURSE FOR [place].
--- NOTE | 2023-01-28 19:00 | NUR ---
HIDE BUYER OPENING NOTE PATIENT IS SITTING IN THE BED. SHE IS ALERT AND ORIENTED, A/O X 4. PT IS ON 4 LPM OXYGEN VIA NC, TOLERATED WELL. NO S/S OF SOB OR DISTRESS. IV ACCESS IS AT HER R FA, #20, SL. FLUSHED WELL WITH 10 CC OF NS. IV SITE IS PATENT AND INTACT. PT IS ON EXTERNAL MUSHROOM GROWER. ON THE MONITOR, HER HEART RHYTHM IS SR WITH HR AT 80s. SAFETY MEASURES IN PLACE , BED IS LOCKED AND AT THE LOWEST POSITION ; CALL LIGHT AND TABLE ARE WITHIN REACH; BED SIDE RAILS ARE UP X 2 , BED ALARM IS ON .WILL CONTINUE MONITOR THE PT AND PROVIDE THE CARE SHE NEEDS.
[2023-01-28 20:00] VITALS: BP 147/87
[2023-01-28] MEDS: ATORVASTATIN 40 MG TABLET PO SCH (21:09)
--- NOTE | 2023-01-28 21:15 | NUR ---
CONTRACT PROGRAMMER NOTE PATIENT STATS SHE IS HAVING HEART BURN AND NEED SOME MEDICATION FOR IT. PRN ORAL MEDICATION, MAALOX, ADMINISTERED TO THE PT PER MD ORDER.
[2023-01-29] VITALS (7 sets, daily range): BP systolic 113–200; BP diastolic 57–120
--- NOTE | 2023-01-29 | NUR ---
YARD MOTOR OPERATOR NOTE PT'S BP IS 163/99. CHECK ON THE PT, PT DENIES OF HAVING HISTORY OF BP. PT IS UPSETTING WITH ONE OF HER FAMILY MEMBER. TALKED TO THE PT AND ASKED THE PT TO RELAX. CHARGE NURSE, TANVIR, NOTIFIED. IS INSTRUCTED TO RECHECK THE PT 'S BP IN ONE HOUR.
--- NOTE | 2023-01-29 01:09 | NUR ---
MILITARY LOGISTICS SPECIALIST NOTE RECHECKED PT'S BP, IS IT 174/98.HR IS 92. TEXT MELTER ASSISTANT CHARU JENKINS, RECEIVED REPLY "MONITOR FOR NOW". CHARGE NURSE, TANVIR, NOTIFIED.
--- NOTE | 2023-01-29 03:30 | NUR ---
RACE STARTER NOTE PT'S BP IS 200/103, HR IS 101. PT IS ALERT AND ORIENTED. TEXT ENTERTAINMENT PRODUCTION PROFESSIONAL CHARU JENKINS AND RECEIVED ORDER FOR ELEVATED BP.
[2023-01-29] MEDS: IPRATROPIUM NEB FS 0.5 MG/2.5 ML AMPUL.NEB NEB PRN (03:50)
[2023-01-29] MEDS: ALBUTEROL FS 2.5 MG/3 ML VIAL.NEB NEB PRN (03:50)
[2023-01-29] MEDS: CLONIDINE HCL 0.1 MG TABLET PO PRN ×2 (04:07→10:50)
[2023-01-29] MEDS: methylPREDNISolone SOD SUCC 40 MG/ML VIAL IV SCH ×3 (05:10→17:53)
--- NOTE | 2023-01-29 07:25 | NUR ---
RIGGER UP CLOSING NOTE PATIENT IS SITTING IN THE BED. SHE IS ALERT AND ORIENTED, A/O X 4. PT IS ON 4 LPM OXYGEN VIA NC, TOLERATED WELL. NO S/S OF SOB OR DISTRESS. IV ACCESS IS AT HER R FA, #20, SL. FLUSHED WELL WITH 10 CC OF NS. IV SITE IS PATENT AND INTACT. PT IS ON EXTERNAL ASSISTANT PRESS OPERATOR OFFSET. ON THE MONITOR, HER HEART RHYTHM IS SR WITH HR AT 90s TO 100s. PT HAS ELEVATED BP AFTER MIDNIGHT, N.P CHARU JENKINS NOTIFIED. RECEIVED PRN MEDICATION FOR BP AND ADMINISTERED TO THE PT PER MD ORDER. SAFETY MEASURES IN PLACE , BED IS LOCKED AND AT THE LOWEST POSITION ; CALL LIGHT AND TABLE ARE WITHIN REACH; SIDE RAILS ARE UP X 2 , BED ALARM IS ON . ENDORSED NEXT SHIFT FOR CONTINUING CARE.
[2023-01-29] MEDS: IPRATROPIUM NEB FS 0.5 MG/2.5 ML AMPUL.NEB NEB SCH ×4 (07:53→19:53)
[2023-01-29] MEDS: ALBUTEROL FS 2.5 MG/3 ML VIAL.NEB NEB SCH ×4 (07:53→19:53)
[2023-01-29] MEDS: PANTOPRAZOLE 40 MG/PACK PACK PO SCH (07:58)
[2023-01-29] MEDS: CARVEDILOL 3.125 MG TABLET PO SCH ×2 (07:58→17:59)
[2023-01-29] MEDS: LOSARTAN POTASSIUM 25 MG TABLET PO SCH (07:59)
[2023-01-29] MEDS: ASPIRIN 81 MG TAB.CHEW PO SCH (07:59)
[2023-01-29] MEDS: ENOXAPARIN SODIUM 40 MG/0.4 ML DISP.SYRIN SQ SCH (08:02)
[2023-01-29] MEDS: CEFTRIAXONE 1 G in IV D5W 50 ML IV SCH (08:45)
[2023-01-29] MEDS: FUROSEMIDE 40 MG/4 ML VIAL IV SCH (08:46)
[2023-01-29] MEDS: AZITHROMYCIN 500 MG in IV D5W 250 ML IV SCH (09:37)
--- NOTE | 2023-01-29 19:21 | NUR ---
Handoff with ITZEL Adnrew.
--- NOTE | 2023-01-29 19:30 | NUR ---
RN NOTES RECEIVED REPORT FROM MORNING RN. PATIENT IN BED A/O X4 ABLE TO MAKE NEEDS KNOWN. ON NASAL CANULA @2LPM SATING 95% NO SOB NO DISTRESS NOTED. WITH IV ACCESS @ RFA # 20SL. NO REDNESS NO INFILTRATION NOTED AT THIS TIME. ALL SAFETY MEASURES IN PLACE. CALL LIGHT WITHIN REACH. WILL CLOSELY MONITOR THE PATIENT
[2023-01-29] MEDS: ATORVASTATIN 40 MG TABLET PO SCH (21:08)
[2023-01-30] VITALS: BP 153/67
[2023-01-30 04:00] VITALS: BP 139/64
[2023-01-30] MEDS: IPRATROPIUM NEB FS 0.5 MG/2.5 ML AMPUL.NEB NEB PRN (04:57)
[2023-01-30] MEDS: ALBUTEROL FS 2.5 MG/3 ML VIAL.NEB NEB PRN (04:57)
[2023-01-30 06:21] LABS: CALCIUM, SERUM 8.8 mg/dL (8.5-10.1); CARBON DIOXIDE 31 mmol/L (21-32); CHLORIDE 95 mmol/L (98-107); CREATININE 0.7 mg/dL (0.6-1.3); GLUCOSE 121 mg/dL (74-106); MAGNESIUM 2.4 mg/dL (1.8-2.4); PHOSPHORUS 4.4 mg/dL (2.5-4.9); POTASSIUM 3.8 mmol/L (3.5-5.1); SODIUM SERUM 134 mmol/L (136-145); UREA NITROGEN, BLOOD 29 mg/dL (7-18)
--- NOTE | 2023-01-30 06:52 | NUR ---
RN NOTES PATIENT REMAINS STABLE NO SIGNIFICANT CHANGES. NO PRN GIVEN. ALL DUE MEDS GIVEN ORDERED. FREQUENT VISUAL MONITORING RENDERED, NO EPISODE OF SOB OR DISTRESS THIS SHIFT. WILL ENDORSED TO MORNING SHIFT FOR [place]
--- NOTE | 2023-01-30 07:00 | NUR ---
COMPUTER NUMERICAL CONTROL OPERATOR OPENING NOTES: RECEIVED PT IN BED AWAKE, A/O X3-4 WITH EPISODES OF FORGETFULNESS, NO SOB OR CARDIAC DISTRESS NOTED, ON O2 INHALATION @ 2LPM VIA NC, ANIMAL CARE WORKER WITH CURRENT READING OF SINUS RHYTHM @88 BPM. PT DENIES ANY PAIN AT THIS TIME. IV ACCESS ON RFA GAUGE 20 PATENT, INTACT AND SL. SAFETY MEASURES MAINTAINED: BED LOCKED AND IN LOWEST POSITION, SIDERAILS UP X 2. CALL LIGHT IN EASY REACH. WILL MONITOR PT ACCORDINGLY.
[2023-01-30 07:02] LABS: BASOPHILS % (AUTO) 0.1 % (0.0-2.0); HEMATOCRIT 43 % (33-45); LYMPHOCYTES # (AUTO) 0.5 K/uL (0.8-4.8); LYMPHOCYTES % (AUTO) 4.9 % (20.0-44.0); MEAN CORPUSCULAR HGB CONC 33 g/dl (31.0-36.0); MEAN CORPUSCULAR VOLUME 94 fL (82-100); MONOCYTES # (AUTO) 0.6 K/uL (0.1-1.30); MONOCYTES % (AUTO) 5.5 % (2.0-12.0); NEUTROPHILS # (AUTO) 9.3 K/uL (1.8-8.9); NEUTROPHILS % (AUTO) 89.5 % (43.0-81.0); PLATELET COUNT (AUTO) 234 K/uL (150-450); RED BLOOD CELL COUNT(AUTO) 4.56 MIL/uL (4.0-5.2); WHITE BLOOD COUNT (AUTO) 10.4 K/uL (4.3-11.0)
[2023-01-30] MEDS: ALBUTEROL FS 2.5 MG/3 ML VIAL.NEB NEB SCH ×4 (07:34→19:37)
[2023-01-30] MEDS: IPRATROPIUM NEB FS 0.5 MG/2.5 ML AMPUL.NEB NEB SCH ×4 (07:34→19:37)
[2023-01-30] MEDS: CEFTRIAXONE 1 G in IV D5W 50 ML IV SCH (07:49)
[2023-01-30] MEDS: AZITHROMYCIN 500 MG in IV D5W 250 ML IV SCH (07:49)
[2023-01-30] MEDS: ENOXAPARIN SODIUM 40 MG/0.4 ML DISP.SYRIN SQ SCH (07:50)
[2023-01-30 08:00] VITALS: BP 155/96
[2023-01-30] MEDS: PANTOPRAZOLE 40 MG/PACK PACK PO SCH (09:05)
[2023-01-30] MEDS: ASPIRIN 81 MG TAB.CHEW PO SCH (09:05)
[2023-01-30] MEDS: FUROSEMIDE 40 MG/4 ML VIAL IV SCH (09:05)
[2023-01-30] MEDS: methylPREDNISolone SOD SUCC 40 MG/ML VIAL IV SCH ×2 (09:05→16:45)
[2023-01-30] MEDS: CARVEDILOL 3.125 MG TABLET PO SCH ×2 (09:06→16:46)
[2023-01-30] MEDS: LOSARTAN POTASSIUM 25 MG TABLET PO SCH (09:06)
[2023-01-30 12:00] VITALS: BP 150/69
--- NOTE | 2023-01-30 12:00 | NUR ---
RN NOTES: REINSERTED IV ACCESS ON LFA GAUGE 22, PATENT INTACT AND SL.
[2023-01-30 16:00] VITALS: BP 134/67
[2023-01-30] MEDS: ENSURE ENLIVE CHOC 237 ML CAN PO SCH (16:46)
--- NOTE | 2023-01-30 19:26 | NUR ---
LAP REGULATOR CLOSING NOTES: PT IN BED AWAKE, A/O X3-4 WITH EPISODES OF FORGETFULNESS, NO SOB OR CARDIAC DISTRESS NOTED, ON O2 INHALATION @ 2LPM VIA NC, FINANCIAL FOUNDATIONS REPRESENTATIVE WITH CURRENT READING OF SINUS RHYTHM @76 BPM. PT DENIES ANY PAIN AT THIS TIME. IV ACCESS ON LFA GAUGE 22 PATENT, INTACT AND SL. SAFETY MEASURES MAINTAINED: BED LOCKED AND IN LOWEST POSITION, SIDERAILS UP X 2. CALL LIGHT IN EASY REACH.ENDORSED FOR CONTINUITY OF CARE.
--- NOTE | 2023-01-30 19:30 | NUR ---
SAMPLE GRINDER OPENING NOTE RECEIVED PT IN BED, AWAKE, A/O X4, WITH EPISODES OF FORGETFULNESS. PT ABLE TO VERBALIZE NEEDS. CURRENTLY ON O2 THERAPY @ 2LPM VIA NC, TOLERATING WELL. NO S/SX OF ACUTE RESPI DISTRESS NOTED AT THIS TIME. NO SOB, BREATHING IS EVEN AND UNLABORED. LIFE ENRICHMENT DIRECTOR READS SR WITH HR IN 80s. IV ACCESS ON RFA 20G, PATENT, INTACT AND SL. ALL SAFETY MEASURES IN PLACE: BED LOCKED AND IN LOWEST POSITION, HOB ELEVATED, SIDE RAILS UP X 2. CALL LIGHT WITHIN EASY REACH. WILL MONITOR PT ACCORDINGLY.
[2023-01-30 20:00] VITALS: BP 147/80
[2023-01-30] MEDS: ATORVASTATIN 40 MG TABLET PO SCH (21:35)
[2023-01-31] VITALS: BP 152/87
[2023-01-31 04:00] VITALS: BP 156/84
[2023-01-31 05:51] LABS: BASOPHILS % (AUTO) 0.1 % (0.0-2.0); HEMATOCRIT 42 % (33-45); HEMOGLOBIN 13.8 g/dL (11.5-14.8); LYMPHOCYTES # (AUTO) 0.6 K/uL (0.8-4.8); LYMPHOCYTES % (AUTO) 6.5 % (20.0-44.0); MEAN CORPUSCULAR HGB CONC 33 g/dl (31.0-36.0); MEAN CORPUSCULAR VOLUME 94 fL (82-100); MONOCYTES # (AUTO) 0.9 K/uL (0.1-1.30); MONOCYTES % (AUTO) 8.9 % (2.0-12.0); NEUTROPHILS # (AUTO) 8.3 K/uL (1.8-8.9); NEUTROPHILS % (AUTO) 84.5 % (43.0-81.0); PLATELET COUNT (AUTO) 233 K/uL (150-450); RED BLOOD CELL COUNT(AUTO) 4.45 MIL/uL (4.0-5.2); WHITE BLOOD COUNT (AUTO) 9.9 K/uL (4.3-11.0)
[2023-01-31 06:22] LABS: CALCIUM, SERUM 8.7 mg/dL (8.5-10.1); CARBON DIOXIDE 33 mmol/L (21-32); CHLORIDE 94 mmol/L (98-107); CREATININE 0.8 mg/dL (0.6-1.3); GLUCOSE 119 mg/dL (74-106); MAGNESIUM 2.4 mg/dL (1.8-2.4); PHOSPHORUS 3.8 mg/dL (2.5-4.9); POTASSIUM 3.7 mmol/L (3.5-5.1); SODIUM SERUM 133 mmol/L (136-145); UREA NITROGEN, BLOOD 32 mg/dL (7-18)
--- NOTE | 2023-01-31 06:27 | NUR ---
DIETITIAN RESEARCH CLOSING NOTE NO SIGNIFICANT CHANGE T/O THE NIGHT. PT IN STABLE CONDITION. ALL DUE MEDS GIVEN. NEEDS MET. WILL ENDORSE TO AM SHIFT NURSE FOR [place].
--- NOTE | 2023-01-31 07:15 | NUR ---
RN OPENING NOTE RECEIVED PT IN BEDSITTING UPRIGHT, AWAKE, A/O X4, ABLE TO VERBALIZE NEEDS. CURRENTLY ON O2 THERAPY @ 2LPM VIA NC, TOLERATING WELL. CONSULTING DATABASE ADMINISTRATOR READS SR WITH HR IN 80s. IV ACCESS ON RFA 20G, PATENT, INTACT AND SL. ALL SAFETY MEASURES IN PLACE: BED LOCKED AND IN LOWEST POSITION, SIDE RAILS UP X 2. CALL LIGHT WITHIN EASY REACH. WILL MONITOR.
[2023-01-31] MEDS: ALBUTEROL FS 2.5 MG/3 ML VIAL.NEB NEB SCH ×4 (07:32→19:23)
[2023-01-31] MEDS: IPRATROPIUM NEB FS 0.5 MG/2.5 ML AMPUL.NEB NEB SCH ×4 (07:32→19:23)
[2023-01-31 08:00] VITALS: BP_SYST 121; BP_SYST 165; BP_DIAS 69; BP_DIAS 99
[2023-01-31] MEDS: CEFTRIAXONE 1 G in IV D5W 50 ML IV SCH (08:02)
[2023-01-31] MEDS: ENSURE ENLIVE CHOC 237 ML CAN PO SCH ×2 (08:02→16:41)
[2023-01-31] MEDS: ENOXAPARIN SODIUM 40 MG/0.4 ML DISP.SYRIN SQ SCH (08:08)
[2023-01-31] MEDS: PANTOPRAZOLE 40 MG/PACK PACK PO SCH (08:52)
[2023-01-31] MEDS: LOSARTAN POTASSIUM 25 MG TABLET PO SCH (08:53)
[2023-01-31] MEDS: methylPREDNISolone SOD SUCC 40 MG/ML VIAL IV SCH ×2 (08:53→16:32)
[2023-01-31] MEDS: CARVEDILOL 3.125 MG TABLET PO SCH ×2 (08:53→16:33)
[2023-01-31] MEDS: ASPIRIN 81 MG TAB.CHEW PO SCH (08:53)
[2023-01-31] MEDS ORDERED: FUROSEMIDE 40 MG TABLET PO SCH (09:00)
[2023-01-31 12:00] VITALS: BP 169/85
[2023-01-31 16:00] VITALS: BP 147/80
--- NOTE | 2023-01-31 19:00 | NUR ---
RN CLOSING NOTE PATIENT IN BED SITTING UPRIGHT, AWAKE, A/O X4, ABLE TO VERBALIZE NEEDS, COOPERATIVE. O2 @ 2LPM VIA NC, TOLERATING WELL. MANPOWER DEVELOPMENT SPECIALIST MANAGER READS SR WITH HR IN 70s. IV ACCESS ON RFA 20G, PATENT, INTACT AND SL. ALL MEDS GIVEN ON TIME, ALL SAFETY MEASURES IN PLACE: BED LOCKED AND IN LOWEST POSITION, SIDE RAILS UP X 2. CALL LIGHT WITHIN EASY REACH. WILL ENDORSE TO THE NEXT SHIFT NURSE FOR [place].
[2023-01-31 20:00] VITALS: BP 117/74
[2023-01-31] MEDS: ATORVASTATIN 40 MG TABLET PO SCH (21:35)
[2023-02-01] VITALS: BP 136/78
[2023-02-01 04:00] VITALS: BP 147/80
--- NOTE | 2023-02-01 06:53 | NUR ---
RN NOTES PATIENT REMAINS STABLE NO SIGNIFICANT CHANGES. ALL DUE MEDS GIVEN ORDERED. STILL ON 2LPM VIA NC TOLERATING WELL. WILL ENDORSED TO MORNING SHIFT FOR [place]
[2023-02-01] MEDS: IPRATROPIUM NEB FS 0.5 MG/2.5 ML AMPUL.NEB NEB SCH ×4 (07:24→19:46)
[2023-02-01] MEDS: ALBUTEROL FS 2.5 MG/3 ML VIAL.NEB NEB SCH ×4 (07:24→19:46)
--- NOTE | 2023-02-01 07:46 | NUR ---
LOGISTICS ASSOCIATE OPENING NOTE Patient in bed, awake. Currently having breathing treatment. Patient on O2 at 2 LPM via NC. No SOB or s/s of distress noted. IV access on LFA #22 SL, intact and patent. On external monitoring showing SR. Denies any pain or discomfort at this time. Safety precautions in place: bed in low, locked position; siderails up x2; call light within reach. Will continue to monitor.
[2023-02-01 08:00] VITALS: BP 146/80
[2023-02-01] MEDS: ENSURE ENLIVE CHOC 237 ML CAN PO SCH (08:18)
[2023-02-01] MEDS: CEFTRIAXONE 1 G in IV D5W 50 ML IV SCH (08:18)
[2023-02-01] MEDS: ENOXAPARIN SODIUM 40 MG/0.4 ML DISP.SYRIN SQ SCH (08:20)
--- NOTE | 2023-02-01 08:30 | NUR ---
RN NOTE Patient's IV access got infiltrated, removed. Re-inserted IV on LFA #22, flushes well.
[2023-02-01] MEDS: methylPREDNISolone SOD SUCC 40 MG/ML VIAL IV SCH (08:50)
[2023-02-01] MEDS: PANTOPRAZOLE 40 MG/PACK PACK PO SCH ×2 (08:50→09:00)
[2023-02-01] MEDS: ASPIRIN 81 MG TAB.CHEW PO SCH (08:50)
[2023-02-01] MEDS: LOSARTAN POTASSIUM 25 MG TABLET PO SCH (08:51)
[2023-02-01] MEDS: CARVEDILOL 3.125 MG TABLET PO SCH ×2 (08:51→16:35)
[2023-02-01 12:00] VITALS: BP 153/68
[2023-02-01 16:00] VITALS: BP 152/90
[2023-02-01] MEDS: ENSURE ENLIVE 237 ML LIQUID (VANILLA) PO SCH (17:13)
--- NOTE | 2023-02-01 18:45 | NUR ---
OPERATIONS SUPERINTENDENT CLOSING NOTE Patient in bed, resting. A/O x 4, able to make needs known. Stable on O2 at 2 LPM via NC. No SOB or s/s of distress noted. IV access on LFA #22 SL, intact and patent. On external monitoring showing SR, HR 75. Denies any pain or discomfort at this time. All needs attended to. Due meds given. Safety precautions in place: bed in low, locked position; siderails up x2; call light within reach. Will endorse to production shift supervisor nurse for [place].
[2023-02-01 20:00] VITALS: BP 151/76
[2023-02-01] MEDS: ATORVASTATIN 40 MG TABLET PO SCH (21:20)
[2023-02-02] VITALS: BP 160/95
[2023-02-02 04:00] VITALS: BP 152/76
[2023-02-02 06:06] LABS: EOSINOPHILS % (AUTO) 0.4 % (0.0-6.0); HEMATOCRIT 45 % (33-45); HEMOGLOBIN 14.8 g/dL (11.5-14.8); LYMPHOCYTES # (AUTO) 1.2 K/uL (0.8-4.8); LYMPHOCYTES % (AUTO) 16.9 % (20.0-44.0); MEAN CORPUSCULAR HGB CONC 33 g/dl (31.0-36.0); MEAN CORPUSCULAR VOLUME 94 fL (82-100); MONOCYTES # (AUTO) 0.8 K/uL (0.1-1.30); MONOCYTES % (AUTO) 10.3 % (2.0-12.0); NEUTROPHILS # (AUTO) 5.3 K/uL (1.8-8.9); NEUTROPHILS % (AUTO) 72.4 % (43.0-81.0); PLATELET COUNT (AUTO) 244 K/uL (150-450); RED BLOOD CELL COUNT(AUTO) 4.79 MIL/uL (4.0-5.2); WHITE BLOOD COUNT (AUTO) 7.3 K/uL (4.3-11.0)
[2023-02-02 06:35] LABS: CALCIUM, SERUM 8.8 mg/dL (8.5-10.1); CREATININE 0.7 mg/dL (0.6-1.3); MAGNESIUM 2.2 mg/dL (1.8-2.4); PHOSPHORUS 3.6 mg/dL (2.5-4.9); POTASSIUM 3.4 mmol/L (3.5-5.1)
--- NOTE | 2023-02-02 07:22 | NUR ---
RN CLOSING NOTE A/OX4. 2L NC. SOB WITH EXERCION. SINUS RHYTHM ON THE MONITOR. PLAN FOR HERNANDEZ EVAL V SHORT TERM ECF , O2 TITRATION AND STEROIDS.
--- NOTE | 2023-02-02 07:45 | NUR ---
tele marketing executive opening note pt is alert and oriented x4. pt is sinus rhytm 77 on tele monitor. pt has left forearm 22 guage. iv patent, intact and flushes well. pt on 2 l nasl cannula tolerating above 93%. all safety measures in place. call light within reach. bed locked at lowest position. side rails up x2. bed alarm on.
[2023-02-02 08:00] VITALS: BP 168/94
[2023-02-02] MEDS: CEFTRIAXONE 1 G in IV D5W 50 ML IV SCH (08:13)
[2023-02-02] MEDS: ENSURE ENLIVE 237 ML LIQUID (VANILLA) PO SCH ×2 (08:13→17:41)
[2023-02-02] MEDS: methylPREDNISolone SOD SUCC 40 MG/ML VIAL IV SCH (08:13)
[2023-02-02] MEDS: ASPIRIN 81 MG TAB.CHEW PO SCH (08:13)
[2023-02-02] MEDS: LOSARTAN POTASSIUM 25 MG TABLET PO SCH (08:14)
[2023-02-02] MEDS: PANTOPRAZOLE 40 MG/PACK PACK PO SCH ×2 (08:14→08:38)
[2023-02-02] MEDS: CARVEDILOL 3.125 MG TABLET PO SCH ×2 (08:14→17:13)
[2023-02-02] MEDS: ENOXAPARIN SODIUM 40 MG/0.4 ML DISP.SYRIN SQ SCH (08:16)
[2023-02-02] MEDS: ALBUTEROL FS 2.5 MG/3 ML VIAL.NEB NEB SCH ×4 (08:38→19:48)
[2023-02-02] MEDS: IPRATROPIUM NEB FS 0.5 MG/2.5 ML AMPUL.NEB NEB SCH ×4 (08:38→19:48)
--- NOTE | 2023-02-02 08:38 | NUR ---
rn note took protonix out of wrapper in pt room. pt refused and said it makes her sick. threw protonix in sharps container in pts room.
--- NOTE | 2023-02-02 09:18 | NUR ---
RN NOTE NOTIFIED ROLL CAPPER LORENA GRACIA THAT POTASSIUM 3.4
[2023-02-02] MEDS ORDERED: POTASSIUM CHLORIDE 20 MEQ TAB.PRT.SR PO SCH (10:00)
[2023-02-02] MEDS ORDERED: POTASSIUM CL. PREMIX PERIPHER. 50 ML IV SCH (11:00)
[2023-02-02] MEDS ORDERED: POTASSIUM CHLORIDE 20 MEQ POWDER PACKET PO ONE (11:00)
[2023-02-02 12:00] VITALS: BP 128/65
--- NOTE | 2023-02-02 12:47 | NUR ---
RN NOTE NOTIFIED LANI CRYSTAL THAT PT WANTS TO GO AMA. LANI CARRILLO SAID OKAY.
--- NOTE | 2023-02-02 13:30 | NUR ---
RN NOTE DISCUSSED WITH PATIENT. PT WANTS TO STAY IN HOSPITAL AND NOT LEAVE AMA AT THIS TIME
[2023-02-02 16:00] VITALS: BP 139/71
--- NOTE | 2023-02-02 19:30 | NUR ---
noc rn opening received patient in bed, a/ox4. no s/s of apparent distress on 2lpm of o2 via nc. denies pain at this time. lt. hand #22 g on saline lock. safety in place: bed in lowest, locked position, call light within reach, side rails up X2. will continue with the plan of care for patient.
--- NOTE | 2023-02-02 19:33 | NUR ---
telecommunications cable jointer CLOSING note pt is alert and oriented x4. pt is sinus rhythm 75 on tele monitor. no complaints of pain or discomfort at this time. pt has left forearm 22 gauge. iv patent, intact and flushes well. pt on 2 l nasal cannula tolerating AT 98%%. all safety measures in place. call light within reach. bed locked at lowest position. side rails up x2. bed alarm on. ENDORSED to shift boss rn for contuity of care
[2023-02-02 20:00] VITALS: BP 151/67
[2023-02-02] MEDS: ATORVASTATIN 40 MG TABLET PO SCH (22:08)
[2023-02-02] MEDS: IPRATROPIUM NEB FS 0.5 MG/2.5 ML AMPUL.NEB NEB PRN (23:49)
[2023-02-02] MEDS: ALBUTEROL FS 2.5 MG/3 ML VIAL.NEB NEB PRN (23:49)
[2023-02-03] VITALS: BP 150/70
[2023-02-03 04:00] VITALS: BP 147/84
[2023-02-03 06:53] LABS: CALCIUM, SERUM 8.5 mg/dL (8.5-10.1); CREATININE 0.6 mg/dL (0.6-1.3); POTASSIUM 3.5 mmol/L (3.5-5.1)
--- NOTE | 2023-02-03 06:54 | NUR ---
noc rn closing note Patient in bed a/ox4. no s/s of apparent distress on 2lpm of o2 via nc. denies pain. peripheral line flushing well. all needs attended. all scheduled medications administered. safety kept in place the whole shift. will endorse to morning shift rn for continuity of patient care.
--- NOTE | 2023-02-03 07:10 | NUR ---
GARDEN LABOURER NOTES Received pt awake in bed AOX4. No complaints of pain or discomfort at this time. Pt is currently on 2L NC and tolerating it well. IV access on left hand 22G patent and intact. HOB elevated to pts comfort. Siderails up at all times x2. Call light within reach. Will continue to monitor.
[2023-02-03] MEDS: CLONIDINE HCL 0.1 MG TABLET PO PRN (07:32)
--- NOTE | 2023-02-03 07:36 | NUR ---
CLINICAL SERVICES PROFESSIONAL NOTES Pt BP 183/101. PRN Catapress 0.1mg given PO. CN aware.
[2023-02-03] MEDS: ENSURE ENLIVE 237 ML LIQUID (VANILLA) PO SCH ×2 (07:55→17:25)
[2023-02-03] MEDS: CEFTRIAXONE 1 G in IV D5W 50 ML IV SCH (07:58)
[2023-02-03 08:00] VITALS: BP 171/100
[2023-02-03] MEDS: IPRATROPIUM NEB FS 0.5 MG/2.5 ML AMPUL.NEB NEB SCH ×4 (08:08→19:58)
[2023-02-03] MEDS: ALBUTEROL FS 2.5 MG/3 ML VIAL.NEB NEB SCH ×4 (08:08→19:58)
--- NOTE | 2023-02-03 08:30 | NUR ---
SALES ACCOUNT ASSOCIATE NOTES Catapress 0.1 mg effective. Pt bp 136/69.
[2023-02-03] MEDS: PANTOPRAZOLE 40 MG/PACK PACK PO SCH (09:03)
[2023-02-03] MEDS: methylPREDNISolone SOD SUCC 40 MG/ML VIAL IV SCH (09:05)
[2023-02-03] MEDS: LOSARTAN POTASSIUM 25 MG TABLET PO SCH (09:06)
[2023-02-03] MEDS: ASPIRIN 81 MG TAB.CHEW PO SCH (09:06)
[2023-02-03] MEDS: CARVEDILOL 3.125 MG TABLET PO SCH ×2 (09:06→16:16)
[2023-02-03] MEDS: ENOXAPARIN SODIUM 40 MG/0.4 ML DISP.SYRIN SQ SCH (09:07)
[2023-02-03 12:00] VITALS: BP 111/66
[2023-02-03 16:00] VITALS: BP 111/64
[2023-02-03 18:30] LABS: BILIRUBIN,URINE NEGATIVE (NEGATIVE); COLOR,URINE YELLOW (YELLOW); LEUKOCYTE ESTERASE ,URINE NEGATIVE (NEGATIVE); NITRITE, URINE NEGATIVE (NEGATIVE); PROTEIN,URINE 1+ mg/dl (NEGATIVE); UGLUCOSE NEGATIVE (NEGATIVE); UROBILINOGEN,URINE 0.2 EU/dL (0.2)
--- NOTE | 2023-02-03 18:31 | NUR ---
JERSEY KNITTER CLOSING NOTES All due meds and tx given as ordered. Pt tolerated everything well. All needs attended to. Pt is still on 2L NC and tolerating it well. IV access on RFA 22G patent and intact. Call light within reach. Will endorse to oncoming nurse.
[2023-02-03 19:16] LABS: RBC,URINE 0-2 /HPF (0-2); WBC,URINE NONE SEEN /HPF (0-3)
[2023-02-03 19:17] LABS: BACTERIA,URINE Few /HPF (None Seen); SQUAMOUS EPITHELIAL CELL,UR Few /HPF (None Seen)
--- NOTE | 2023-02-03 19:28 | NUR ---
PUBLIC WORKS INSPECTOR OPENING NOTE RECEIVED PATIENT IN BED, AWAKE, A/O X 4. ABLE TO VERBALIZE NEEDS. CURRENTLY ON O2 THERAPY VIA NC @ 2 LPM, TOLERATING WELL, SATING @ >95%. NO S/SX OF ACUTE RESPI DISTRESS NOTED AT THIS TIME. NO SOB. BREATHING IS EVEN AND UNLABORED. CEO AND FOUNDER READS SR WITH HR IN THE 70s. IV ACCESS NOTED ON RFA, #22g, PATENT, INTACT AND FLUSHES WELL, SL. ALL SAFETY PRECAUTIONS IN PLACE: HEAD OF BED ELEVATED, CALL LIGHT AND TABLE WITHIN REACH, SIDE RAILS UP X 2, BED IN LOWEST, LOCKED POSITION. WILL CONTINUE TO MONITOR THROUGHOUT SHIFT.
[2023-02-03 20:00] VITALS: BP 134/72
[2023-02-03] MEDS: ATORVASTATIN 40 MG TABLET PO SCH (21:09)
[2023-02-04] VITALS: BP 128/67
[2023-02-04 04:00] VITALS: BP 138/77
--- NOTE | 2023-02-04 07:05 | NUR ---
RN CLOSING NOTE NO SIGNIFICANT CHANGE T/O THE NIGHT. ALL DUE MEDS GIVEN. NEEDS MET. PM CARE DONE. TURNED AND REPOSITIONED. WILL ENDORSE TO AM SHIFT NURSE FOR [place].
[2023-02-04 08:00] VITALS: BP 178/60
[2023-02-04] MEDS: PANTOPRAZOLE 40 MG/PACK PACK PO SCH (08:18)
[2023-02-04] MEDS: methylPREDNISolone SOD SUCC 40 MG/ML VIAL IV SCH (08:18)
[2023-02-04] MEDS: CEFTRIAXONE 1 G in IV D5W 50 ML IV SCH (08:18)
[2023-02-04] MEDS: ASPIRIN 81 MG TAB.CHEW PO SCH (08:18)
[2023-02-04] MEDS: ENOXAPARIN SODIUM 40 MG/0.4 ML DISP.SYRIN SQ SCH (08:22)
[2023-02-04] MEDS: ENSURE ENLIVE 237 ML LIQUID (VANILLA) PO SCH ×2 (08:23→17:16)
[2023-02-04] MEDS: LOSARTAN POTASSIUM 25 MG TABLET PO SCH (08:24)
[2023-02-04] MEDS: CARVEDILOL 3.125 MG TABLET PO SCH ×2 (08:24→17:16)
[2023-02-04] MEDS: ALBUTEROL FS 2.5 MG/3 ML VIAL.NEB NEB SCH ×4 (08:41→19:50)
[2023-02-04] MEDS: IPRATROPIUM NEB FS 0.5 MG/2.5 ML AMPUL.NEB NEB SCH ×4 (08:41→19:50)
[2023-02-04] MEDS ORDERED: METH4TAB17 PO (10:30)
[2023-02-04] MEDS ORDERED: LOSA25TA27 PO (10:30)
[2023-02-04] MEDS ORDERED: LACT-246 PO (10:30)
[2023-02-04] MEDS ORDERED: ALBUT2 NEB (10:30)
[2023-02-04] MEDS ORDERED: ATOR40TA PO (10:30)
[2023-02-04] MEDS ORDERED: CEFT1FRO2 IV (10:30)
[2023-02-04] MEDS ORDERED: IPRA0.2S9 NEB (10:30)
[2023-02-04] MEDS ORDERED: ASPI-1169 PO (10:30)
[2023-02-04] MEDS ORDERED: CARV3.122 PO (10:30)
--- NOTE | 2023-02-04 15:28 | NUR ---
per cm still pending insurance authorization.
[2023-02-04 16:00] VITALS: BP 167/61
--- NOTE | 2023-02-04 19:14 | NUR ---
RN CLOSING NOTES ALL DUE MEDS GIVEN, PATIENT ALERT ORIENTED TIMES 4 AWAKE IN BED. NO SOB OR DISTRESS NOTED DURING THE SHIFT, PATIENT IS ON DC PLAN, ALREADY INDORSED HER TO THE PILE DRIVING TECHNICIAN NURSE FOR [place].
--- NOTE | 2023-02-04 19:30 | NUR ---
MS RN OPENING NOTE RECEIVED PATIENT IN BED, AWAKE, A/O X 4. ABLE TO VERBALIZE NEEDS. ON BED SIDE. CURRENTLY ON O2 THERAPY VIA NC @ 2 LPM, TOLERATING WELL, SATING @ >95%. NO S/SX OF ACUTE RESPI DISTRESS NOTED AT THIS TIME. NO SOB. BREATHING IS EVEN AND UNLABORED. IV ACCESS NOTED ON RFA, #22g, PATENT, INTACT AND FLUSHES WELL, SL. ALL SAFETY PRECAUTIONS IN PLACE: HEAD OF BED ELEVATED, CALL LIGHT AND TABLE WITHIN REACH, SIDE RAILS UP X 2, BED IN LOWEST, LOCKED POSITION. WILL CONTINUE TO MONITOR THROUGHOUT SHIFT.
[2023-02-04 20:00] VITALS: BP 149/65
[2023-02-04] MEDS: ATORVASTATIN 40 MG TABLET PO SCH (21:11)
[2023-02-05 04:00] VITALS: BP 151/86
[2023-02-05] MEDS: ALBUTEROL FS 2.5 MG/3 ML VIAL.NEB NEB PRN (05:20)
[2023-02-05] MEDS: IPRATROPIUM NEB FS 0.5 MG/2.5 ML AMPUL.NEB NEB PRN (05:20)
--- NOTE | 2023-02-05 06:15 | NUR ---
MS RN OPENING NOTE PT REMAINED STABLE T/O THE NIGHT. ALL DUE MEDS GIVEN. ALL NEEDS MET. WILL ENDORSE TO AM SHIFT NURSE FOR D/C TODAY.
[2023-02-05] MEDS: CEFTRIAXONE 1 G in IV D5W 50 ML IV SCH (07:14)
--- NOTE | 2023-02-05 07:30 | NUR ---
OPENING NOTE RECEIVED PATIENT IN BED RESTING COMFORTABLY BUT AROUSABLE, NO SIGNS OF IN DISTRESS, UNLABORED BREATHING ON 2L/MIN, SAFETY MEASURES IN PLACED, BED IN LOW POSITION LOCKED, SIDE RAILS UPX3, CALL LIGHT WITHIN REACH
[2023-02-05] MEDS: IPRATROPIUM NEB FS 0.5 MG/2.5 ML AMPUL.NEB NEB SCH ×4 (07:35→15:28)
[2023-02-05] MEDS: ALBUTEROL FS 2.5 MG/3 ML VIAL.NEB NEB SCH ×4 (07:35→15:28)
[2023-02-05] MEDS: ENSURE ENLIVE 237 ML LIQUID (VANILLA) PO SCH ×2 (07:38→16:07)
[2023-02-05] MEDS: ENOXAPARIN SODIUM 40 MG/0.4 ML DISP.SYRIN SQ SCH (07:40)
[2023-02-05 08:00] VITALS: BP 153/70
[2023-02-05] MEDS: PANTOPRAZOLE 40 MG/PACK PACK PO SCH (08:04)
[2023-02-05] MEDS: ASPIRIN 81 MG TAB.CHEW PO SCH (08:04)
[2023-02-05] MEDS: CARVEDILOL 3.125 MG TABLET PO SCH ×2 (08:04→16:06)
[2023-02-05] MEDS: LOSARTAN POTASSIUM 25 MG TABLET PO SCH (08:05)
[2023-02-05] MEDS: methylPREDNISolone SOD SUCC 40 MG/ML VIAL IV SCH (08:05)
[2023-02-05 16:00] VITALS: BP 162/82
[2023-02-05 16:06] VITALS: BP 162/82
--- NOTE | 2023-02-05 18:13 | NUR ---
PATIENT HAS BEEN DISCHARGE TO HOME WITH THE BOYFRIEND. DISCHARGED PACKET GIVEN TO THE PATIENT, STABLE CONDITION.
== END 2023-02-05 18:15 | disposition home or self-care (01) | DRG 190 ==
LOC: ER 03:19 → TELE1 07:28 → MEDSG1 02-04 10:29
PROVIDERS: ADMIT Nurse Practitioner Acute Care; ATTEND Nurse Practitioner Acute Care
DX: J44.1 Chronic obstructive pulmonary disease with (acute) exacerbation (principal); I21.A1 Myocardial infarction type 2; J96.01 Acute respiratory failure with hypoxia; I50.23 Acute on chronic systolic (congestive) heart failure; E87.1 Hypo-osmolality and hyponatremia; E87.3 Alkalosis; Z79.51 Long term (current) use of inhaled steroids; Z79.899 Other long term (current) drug therapy; E86.0 Dehydration; Z87.891 Personal history of nicotine dependence; E87.6 Hypokalemia; I73.9 Peripheral vascular disease, unspecified; E03.9 Hypothyroidism, unspecified; Z98.51 Tubal ligation status; T50.2X5A Adverse effect of carbonic-anhydrase inhibitors, benzothiadiazides and other diuretics, initial encounter; Y92.009 Unspecified place in unspecified non-institutional (private) residence as the place of occurrence of the external cause; R79.89 Other specified abnormal findings of blood chemistry
CPT/HCPCS: 36415; 36600; 71045-TC; 80048-TC; 80061-TC; 80076-TC; 81001; 82803-TC; 83605-TC; 83735-TC; 84100-TC; 84443-TC; 84484-TC; 85025-TC; 85730-TC; 87040-TC; 87081-TC; 93307-TC; 94762-TC; 94799-TC; 97110-TC; 97112-TC; 97116-TC; 97164; 97530-TC; A4223; C9113; C9803; G0378; J0456; J0696; J1650; J1940; J2405; J2920; J3490; J7030; J7040; J7060

== ENCOUNTER 2023-02-12 18:55 | Emergency (ER) | payer OTHER ==
[~2023-02-12] VITALS: Ht 157.5 cm; Wt 38.6 kg
[~2023-02-12 18:55] MED LIST changes: -ALBUT2 CONTNEB; +ALBUT2 NEB; +ASPI-1169 PO; +ATOR40TA PO; +CARV3.122 PO; +CEFT1FRO2 IV; -FLUT1DIS3 INH; +IPRA0.2S9 NEB; +LACT-246 PO; +LOSA25TA27 PO; +METH4TAB17 PO; -MONT10TA22 PO; -PRED20TA PO; -PRED5TAB48 PO; -TIOT18CA3 INH
[2023-02-12 19:10] VITALS: BP 192/84
--- NOTE | 2023-02-12 19:10 | NUR ---
REceived pt 77 yrs femle came from home for evluation [facility] in [facility] to be seen md for prescicaption
--- NOTE | 2023-02-12 19:11 | NUR ---
BIB STATING THAT SHE HAS BILATERAL LOWER EXTEMITY EDEMA THAT SHE FIRST NOTICED THIS WEEKEND. PT IS AAO X 4, BREATHING UNLABORED, CAME IN WITH O2 AT 2-3L VIA NC, AMBULATORY. PT ATTACHED TO MONITOR AND PULSE OX. AWAITING MD VANG.
--- NOTE | 2023-02-12 19:13 | NUR ---
DR HURST AT BEDSIDE
--- NOTE | 2023-02-12 19:34 | NUR ---
HAND OFF ÓSCAR RN
[2023-02-12] MEDS ORDERED: FURO-144 PO (20:17)
--- NOTE | 2023-02-12 20:41 | NUR ---
Patient discharged to home in stable condition. Written and verbal after care instructions given. Patient verbalizes understanding of instruction.
[2023-02-18] MEDS ORDERED: TRAZ-252 PO (12:47)
[2023-02-18] MEDS ORDERED: HYDR-4077 PO (12:47)
== END 2023-02-12 20:42 | disposition home or self-care (01) ==
LOC: ER 19:43
DX: I11.0 Hypertensive heart disease with heart failure (principal); I50.9 Heart failure, unspecified; R60.0 Localized edema; J44.9 Chronic obstructive pulmonary disease, unspecified; F17.200 Nicotine dependence, unspecified, uncomplicated; Z79.899 Other long term (current) drug therapy; Z79.82 Long term (current) use of aspirin

== ENCOUNTER 2023-02-14 22:15 | Inpatient (IN) | payer OTHER ==
[~2023-02-14] VITALS: Ht 157.5 cm; Wt 43.1 kg
[~2023-02-14 22:15] MED LIST changes: +FURO-144 PO
[2023-02-14 23:47] LABS: CALCIUM, SERUM 8.9 mg/dL (8.5-10.1); CREATININE 0.7 mg/dL (0.6-1.3)
--- NOTE | 2023-02-14 23:50 | NUR ---
BIBBOYFRIEND FROM HOME CC OF BILATERAL LOWER FEET EDEMA +2 PITTING, WITH SOB, KNOWN COPD, MAINTAINING O2 INH AT HOME AT 2LPM. AO X 4, BREATHING UNLABORED. PT STATES IT IS HARD TO BREATHE. PT ATTACHED TO MONITOR AND PULSE OX. AWAITING MD VANG
[2023-02-14 23:54] LABS: POTASSIUM 2.7 mmol/L (3.5-5.1)
--- NOTE | 2023-02-15 00:07 | NUR ---
EKG RESULTED: NSR
[2023-02-15] MEDS ORDERED: POTASSIUM CHLORIDE 20 MEQ TAB.PRT.SR PO ONE ×2 (00:09→00:30)
[2023-02-15] MEDS ORDERED: Magnesium 1 GM/2 ML VIAL ONE (00:12)
[2023-02-15 00:14] LABS: BASOPHILS # (AUTO) 0.1 K/uL (0.0-0.2); BASOPHILS % (AUTO) 0.8 % (0.0-2.0); EOSINOPHILS % (AUTO) 2.3 % (0.0-6.0); HEMATOCRIT 41 % (33-45); HEMOGLOBIN 13.4 g/dL (11.5-14.8); LYMPHOCYTES # (AUTO) 0.8 K/uL (0.8-4.8); LYMPHOCYTES % (AUTO) 11.6 % (20.0-44.0); MEAN CORPUSCULAR HGB CONC 33 g/dl (31.0-36.0); MEAN CORPUSCULAR VOLUME 94 fL (82-100); MONOCYTES # (AUTO) 0.6 K/uL (0.1-1.30); MONOCYTES % (AUTO) 8.7 % (2.0-12.0); NEUTROPHILS # (AUTO) 5.6 K/uL (1.8-8.9); NEUTROPHILS % (AUTO) 76.6 % (43.0-81.0); PLATELET COUNT (AUTO) 176 K/uL (150-450); RED BLOOD CELL COUNT(AUTO) 4.32 MIL/uL (4.0-5.2); WHITE BLOOD COUNT (AUTO) 7.3 K/uL (4.3-11.0)
[2023-02-15] MEDS ORDERED: Magnesium 1 GM/2 ML VIAL IV ONE (00:30)
--- NOTE | 2023-02-15 02:31 | NUR ---
covid swab collected, sent to lab
[2023-02-15] MEDS ORDERED: ONDANSETRON HCL/PF 4 MG/2 ML VIAL IVP PRN (04:00)
[2023-02-15] MEDS ORDERED: MAGNESIUM HYDROXIDE 30 ML UDC PO PRN (04:00)
--- NOTE | 2023-02-15 04:32 | NUR ---
REPORT GIVEN TO ITZEL CORADO FOR [place]
--- NOTE | 2023-02-15 05:05 | NUR ---
CUSTOMER SERVICE ADVOCATE ADMITTING NOTE ADMITTED A 77YO FEMALE PATIENT FROM EMERGENCY ROOM. RECEIVED REPORT FROM ITZEL CASTILLO. PT A/O X4. SOB NOTED WITH EXERTION. PT ON O2 2LPM VIA NC, AND TOLERATING WELL. IV ACCESS TO LEFT FA #20G, IV INTACT, AND PATENT. PT REFUSES BODY ASSESSMENT. PT HAS HOME MEDS IN A BAG. BUT SHE REFUSES FOR THE BAG TO BE VERIFIED, AND FOR MEDS TO BE TAKEN TO PHARMACY. PT STATES HER BOYFRIEND WILL TAKE THE MEDS HOME THIS MORNING. BELONGINGS CHECKED, AND BELONGING LIST SIGNED. SAFETY MEASURES INITIATED: BED LOCKED AND IN LOWEST POSITION, SIDE RAILS UP X2, HOB ELEVATED. CALL LIGHT IN EASY REACH FOR HELP. WILL ENDORSE PT TO AM SHIFT NURSE FOR [place].
--- NOTE | 2023-02-15 05:15 | NUR ---
PT TRANSFERRED TO [facility] 326-2 VIA ACLS PROTOCOL. VS WNL.
[2023-02-15 05:55] VITALS: BP 125/96
[2023-02-15 06:28] LABS: BASOPHILS # (AUTO) 0.1 K/uL (0.0-0.2); BASOPHILS % (AUTO) 1.1 % (0.0-2.0); EOSINOPHILS % (AUTO) 1.9 % (0.0-6.0); HEMATOCRIT 43 % (33-45); HEMOGLOBIN 14.2 g/dL (11.5-14.8); LYMPHOCYTES # (AUTO) 0.9 K/uL (0.8-4.8); LYMPHOCYTES % (AUTO) 12.1 % (20.0-44.0); MEAN CORPUSCULAR HGB CONC 33 g/dl (31.0-36.0); MEAN CORPUSCULAR VOLUME 95 fL (82-100); MONOCYTES # (AUTO) 0.7 K/uL (0.1-1.30); NEUTROPHILS # (AUTO) 5.6 K/uL (1.8-8.9); NEUTROPHILS % (AUTO) 75.9 % (43.0-81.0); PLATELET COUNT (AUTO) 180 K/uL (150-450); RED BLOOD CELL COUNT(AUTO) 4.57 MIL/uL (4.0-5.2); WHITE BLOOD COUNT (AUTO) 7.3 K/uL (4.3-11.0)
[2023-02-15 06:54] LABS: CALCIUM, SERUM 8.8 mg/dL (8.5-10.1); CREATININE 0.7 mg/dL (0.6-1.3); MAGNESIUM 2.6 mg/dL (1.8-2.4); PHOSPHORUS 3.6 mg/dL (2.5-4.9); POTASSIUM 3.7 mmol/L (3.5-5.1)
[2023-02-15 08:22] VITALS: BP 147/60
[2023-02-15] MEDS ORDERED: LOSA50TA39 PO (09:22)
[2023-02-15] MEDS ORDERED: ATOR40TA PO (09:22)
[2023-02-15] MEDS ORDERED: FURO40TA5 PO (09:22)
[2023-02-15] MEDS ORDERED: CARV6.252 PO (09:22)
[2023-02-15] MEDS ORDERED: ASPI-1420 PO (09:22)
[2023-02-15 11:25] VITALS: BP 137/61
[2023-02-15] MEDS: ENSURE ENLIVE 237 ML LIQUID (VANILLA) PO SCH ×2 (13:03→17:35)
[2023-02-15] MEDS: ACETAMINOPHEN 325 MG TABLET PO PRN (13:04)
[2023-02-15] MEDS ORDERED: ALBUTEROL FS 2.5 MG/3 ML VIAL.NEB NEB PRN (15:00)
[2023-02-15] MEDS ORDERED: IPRATROPIUM NEB FS 0.5 MG/2.5 ML AMPUL.NEB NEB PRN (15:00)
[2023-02-15 15:39] VITALS: BP 153/76
[2023-02-15] MEDS ORDERED: ENSURE ENLIVE 237 ML LIQUID (VANILLA) PO SCH (17:00)
[2023-02-15] MEDS ORDERED: FUROSEMIDE 20 MG/2 ML VIAL IV SCH (17:00)
[2023-02-15] MEDS: CARVEDILOL 6.25 MG TABLET PO SCH (17:35)
--- NOTE | 2023-02-15 18:20 | NUR ---
END OF SHIFT SUMMARY PATIENT IS A/ O X4. AMBULATORY WITH SBA. PAIN MANAGED WITH TYLENOL. SATURATING WELL ON 02 AT 2 LPM VIA NC. INDEPENDENT WITH REPOSITIONING. IV ACCESS ON L FA #20 G. PATIENT IS CONTINENT/INCONTINENT. OFFERED MILK OF MAG FOR CONSTIPATION. SAFETY MEASURES MAINTAINED. BED IN LOWEST POSITION, BRAKES LOCKED. SIDE RAILS UP X2. CALL LIGHT WITHIN REACH. WILL ENDORSE CONTINUITY OF CARE TO ONCOMING SHIFT.
--- NOTE | 2023-02-15 19:30 | NUR ---
STAINED GLASS GLAZIER CLOSING NOTES RECEIVED PT SITTING ON EDGE OF BED, FAMILY AT BEDSIDE. A/O X4, ABLE TO MAKE NEEDS KNOWN, AMBULATORY WITH SBA. ON O2 2L VIA VIA NC WITH NO S/S OF SOB OR DISTRESS. DENIES PAIN AT THIS TIME. IV ACCESS ON LFA #20G SL, PATENT, INTACT, FLUSHING WELL. ON TELE MONITOR READING SR WITH PVC'S, 72 HR. SAFETY MEASURES IN PLACE: BED LOCKED AND IN LOWEST POSITION, SIDE RAILS UP X3, CALL LIGHT AND TRAY TABLE WITHIN REACH. WILL CONTINUE TO MONITOR AND ASSIST. Addendum: 02/15/23 at 1957 by VALENTINA PITTS RN CORRECTION: STAINED GLASS GLAZIER OPENING NOTES
[2023-02-15 20:00] VITALS: BP 176/92
[2023-02-15] MEDS: ATORVASTATIN 40 MG TABLET PO SCH (21:15)
[2023-02-16] VITALS: BP 140/77
[2023-02-16 04:00] VITALS: BP 174/81
--- NOTE | 2023-02-16 05:45 | NUR ---
RN NOTE PT BP 174/81. PT HAS NO PRN BP MEDS. TEST EQUIPMENT MECHANIC LORENA CRYSTAL NOTIFIED, AWAITING ORDERS.
--- NOTE | 2023-02-16 06:40 | NUR ---
RN NOTE DR CRYSTAL ORDERED HYDRALAZINE 20 MG PO ONCE. WILL ADMINISTER PRESCRIBED.
--- NOTE | 2023-02-16 06:59 | NUR ---
DIRECTOR OF MOBILE MARKETING CLOSING NOTES PT RESTING IN BED, EASILY AROUSED. A/O X4, ABLE TO MAKE NEEDS KNOWN, AMBULATORY WITH SBA. STABLE ON O2 2L VIA VIA NC WITH NO S/S OF SOB OR DISTRESS. DENIES PAIN AT THIS TIME. IV ACCESS ON LFA #20G SL, PATENT, INTACT, FLUSHING WELL. ON TELE MONITOR READING SB WITH PVC'S, 57 HR. ALL CARE PROVIDED AND MEDS TOLERATED WELL. SAFETY MEASURES MAINTAINED: BED LOCKED AND IN LOWEST POSITION, SIDE RAILS UP X3, CALL LIGHT AND TRAY TABLE WITHIN REACH. WILL ENDORSE [place] TO DAY SHIFT NURSE. Addendum: 02/16/23 at 0728 by VALENTINA PITTS RN PT REFUSED SKIN ASSESSMENT BUT PER PREVIOUS SHIFT, SKIN IS INTACT. ALSO SAW PT MOVE AROUND IN BED AND WHILE PROVIDING CARE, NO SKIN ISSUES NOTED.
[2023-02-16 07:00] VITALS: BP 140/65
[2023-02-16] MEDS ORDERED: hydrALAZINE HCL 10 MG TABLET PO ONE (07:00)
--- NOTE | 2023-02-16 07:00 | NUR ---
RN NOTE PLAN TO RECHECK BP BEFORE ADMIN OF PRN HYDRALAZINE 20 MG BUT PT REFUSING BP CHECK AND NOT TO BE DISTURBED, SAYS SHE JUST WANTS TO GET HER SLEEP. WILL ENDORSE TO THE DAY SHIFT NURSE.
--- NOTE | 2023-02-16 07:30 | NUR ---
NUCLEAR POWERPLANT MECHANIC OPENING NOTES RECEIVED PATIENT ASLEEP IN BED, EASILY AROUSABLE, A/O X4, ABLE TO MAKE NEEDS KNOWN. ON O2 INHALATION AT 2L VIA NC, TOLERATING WELL AND SATURATING AT 99%. NO SOB NOTED, BREATHING EVEN AND UNLABORED. NO SIGNS OF ACUTE DISTRESS NOTED. DENIES ANY PAIN AT THIS TIME. ON TELE MONITORING READING SINUS BRADYCARDIA, HR:54. WITH IV ACCESS ON LFA #20G-SALINE LOCKED. SAFETY MEASURES IN PLACE: BED IN LOW AND LOCKED POSITION; SIDE RAILS UP X2; CALL LIGHT WITHIN EASY REACH; WILL CONTINUE TO MONITOR THE PATIENT.
[2023-02-16] MEDS: ASPIRIN EC 81 MG TABLET.DR PO SCH (08:23)
[2023-02-16] MEDS: CARVEDILOL 6.25 MG TABLET PO SCH (08:23)
[2023-02-16] MEDS: LOSARTAN POTASSIUM 50 MG TABLET PO SCH (08:24)
[2023-02-16] MEDS: ENSURE ENLIVE 237 ML LIQUID (VANILLA) PO SCH ×3 (09:29→17:04)
--- NOTE | 2023-02-16 11:20 | NUR ---
MEDICAL ADMINISTRATIVE ASSISTANT SEEN BY HOSPITALIST CHARU JENKINS.
[2023-02-16] MEDS: NITROGLYCERIN 30 GM TUBE TP SCH ×2 (12:31→21:32)
[2023-02-16] MEDS: hydrALAZINE HCL 50 MG TABLET PO SCH ×2 (12:32→17:04)
[2023-02-16 16:00] VITALS: BP 127/60
--- NOTE | 2023-02-16 19:14 | NUR ---
PRINCIPAL PRODUCT MANAGER CLOSING NOTES PATIENT AWAKE IN BED, A/O X4, ABLE TO MAKE NEEDS KNOWN. ON O2 INHALATION AT 2L VIA NC, TOLERATING WELL AND SATURATING AT 99%. NO SOB NOTED, BREATHING EVEN AND UNLABORED. NO SIGNS OF ACUTE DISTRESS NOTED. DENIES ANY PAIN AT THIS TIME. ON TELE MONITORING READING SR, HR:71. WITH IV ACCESS ON LFA #20G-SALINE LOCKED. ALL DUE MEDS GIVEN. ALL NEEDS ATTENDED. SAFETY MEASURES MAINTAINED. BED IN LOW AND LOCKED POSITION; SIDE RAILS UP X2; CALL LIGHT WITHIN EASY REACH; WILL ENDORSE TO FISH BAIT PICKER NURSE FOR CONTINUITY OF CARE.
--- NOTE | 2023-02-16 19:29 | NUR ---
ALARM FIELD TECHNICIAN OPENING NOTE RECEIVED PT AWAKE IN BED. AT BEDSIDE. A/O X4 AND ABLE TO MAKE NEEDS KNOWN. ON O2 @ 2LPM VIA NC, TOLERATING WELL. NO SOB OR S/S OF RESPIRATORY DISTRESS. BREATHING EVEN AND UNLABORED. ON EXTERNAL INSPECTOR MATERIALS AND PROCESSES READING SR 60 BPM. IV ACCESS LFA 20G SL, INTACT AND PATENT. SAFETY PRECAUTIONS IN PLACE. BED IN LOWEST LOCKED POSITION, HOB ELEVATED, SIDE RAILS UP X2, AND CALL LIGHT AND TABLE WITHIN REACH. ALL NEEDS MET AT THIS TIME. Addendum: 02/16/23 at 1934 by MARCELLUS MUHAMMAD RN HR SR 80 BPM, NOT 60.
[2023-02-16 20:00] VITALS: BP 134/51
[2023-02-16] MEDS: ATORVASTATIN 40 MG TABLET PO SCH (21:31)
[2023-02-17 06:32] LABS: BASOPHILS # (AUTO) 0.1 K/uL (0.0-0.2); BASOPHILS % (AUTO) 0.8 % (0.0-2.0); EOSINOPHILS % (AUTO) 3.1 % (0.0-6.0); HEMATOCRIT 39 % (33-45); HEMOGLOBIN 12.9 g/dL (11.5-14.8); LYMPHOCYTES # (AUTO) 1.2 K/uL (0.8-4.8); LYMPHOCYTES % (AUTO) 17.2 % (20.0-44.0); MEAN CORPUSCULAR HGB CONC 33 g/dl (31.0-36.0); MEAN CORPUSCULAR VOLUME 95 fL (82-100); MONOCYTES # (AUTO) 0.5 K/uL (0.1-1.30); MONOCYTES % (AUTO) 7.6 % (2.0-12.0); NEUTROPHILS # (AUTO) 4.8 K/uL (1.8-8.9); NEUTROPHILS % (AUTO) 71.3 % (43.0-81.0); PLATELET COUNT (AUTO) 139 K/uL (150-450); RED BLOOD CELL COUNT(AUTO) 4.09 MIL/uL (4.0-5.2); WHITE BLOOD COUNT (AUTO) 6.7 K/uL (4.3-11.0)
[2023-02-17 06:51] LABS: CALCIUM, SERUM 8.5 mg/dL (8.5-10.1); CARBON DIOXIDE 34 mmol/L (21-32); CHLORIDE 104 mmol/L (98-107); CREATININE 0.6 mg/dL (0.6-1.3); GLUCOSE 83 mg/dL (74-106); POTASSIUM 3.6 mmol/L (3.5-5.1); SODIUM SERUM 140 mmol/L (136-145); UREA NITROGEN, BLOOD 21 mg/dL (7-18)
--- NOTE | 2023-02-17 07:23 | NUR ---
CERTIFIED PROSTHETIST CLOSING NOTE PT AWAKE IN BED. A/O X4 AND ABLE TO MAKE NEEDS KNOWN. ON O2 @ 2LPM VIA NC, TOLERATING WELL. NO SOB OR S/S OF RESPIRATORY DISTRESS. BREATHING EVEN AND UNLABORED. ON EXTERNAL SUPERVISOR BONDING READING SR 69 BPM WITH PACS. IV ACCESS LFA 20G SL, INTACT AND PATENT. ALL DUE MEDS GIVEN ORDERED. KEPT CLEAN AND DRY. SAFETY PRECAUTIONS IN PLACE AT ALL TIMES. BED IN LOWEST LOCKED POSITION, HOB ELEVATED, SIDE RAILS UP X2, AND CALL LIGHT AND TABLE WITHIN REACH. ALL NEEDS MET AT THIS TIME AND WILL ENDORSE TO ONCOMING NURSE FOR [place].
[2023-02-17 07:30] VITALS: BP 146/74
--- NOTE | 2023-02-17 07:30 | NUR ---
DOCUMENT CONTROL SUPERVISOR OPENING NOTES RECEIVED PATIENT AWAKE IN BED, A/O X4, ABLE TO MAKE NEEDS KNOWN. ON O2 INHALATION AT 2L VIA NC, TOLERATING WELL AND SATURATING AT 99%. NO SOB NOTED, BREATHING EVEN AND UNLABORED. NO SIGNS OF ACUTE DISTRESS NOTED. ON TELE MONITORING READING SR WITH PVC, HR:66. WITH IV ACCESS ON LFA #20G-SALINE LOCKED. SAFETY MEASURES IN PLACE: BED IN LOW AND LOCKED POSITION; SIDE RAILS UP X2; CALL LIGHT AND TABLE WITHIN EASY REACH; WILL CONTINUE TO MONITOR THE PATIENT.
[2023-02-17] MEDS: LOSARTAN POTASSIUM 50 MG TABLET PO SCH (08:43)
[2023-02-17] MEDS: ENSURE ENLIVE 237 ML LIQUID (VANILLA) PO SCH ×3 (08:44→16:33)
[2023-02-17] MEDS: ASPIRIN EC 81 MG TABLET.DR PO SCH (08:44)
[2023-02-17] MEDS: hydrALAZINE HCL 50 MG TABLET PO SCH ×3 (08:44→16:33)
[2023-02-17] MEDS: NITROGLYCERIN 30 GM TUBE TP SCH ×2 (09:10→21:33)
[2023-02-17] MEDS: ACETAMINOPHEN 325 MG TABLET PO PRN (09:17)
--- NOTE | 2023-02-17 10:30 | NUR ---
BOW MACHINE OPERATOR NOTE PATIENT WITH ORDER FOR HEPARIN DRIP. SENT CALCULATION TO PHARMACY. AWAITING DELIVERY OF MEDICATION. PATIENT NOTIFIED OF MD ORDER. HEALTH TEACHING DONE REGARDING HEPARIN. VERBALIZED UNDERSTANDING AND APPRECIATION.
[2023-02-17 12:30] VITALS: BP 108/56
[2023-02-17 16:00] VITALS: BP 120/60
--- NOTE | 2023-02-17 18:40 | NUR ---
EDUCATIONAL GUIDANCE COUNSELOR NOTE INR RESULT RECEIVED WITH NO ADJUSTMENT NEEDED FOR HEPARIN DRIP. NO SIGNS AND SYMPTOMS OF BLEEDING NOTED. HEALTH TEACHING DONE REGARDING HEPARIN INDICATION AND ACTION. VERBALIZED UNDERSTANDING AND APPRECIATION. IN STABLE CONDITION.
--- NOTE | 2023-02-17 19:14 | NUR ---
HAND TIER CLOSING NOTE PATIENT AWAKE IN BED, A/O X4, ABLE TO MAKE NEEDS KNOWN. ON O2 INHALATION AT 2L VIA NC, TOLERATING WELL AND SATURATING AT 97%. NO SOB NOTED, BREATHING EVEN AND UNLABORED. NO SIGNS OF ACUTE DISTRESS NOTED. ON TELE MONITORING READING SR AT 68BPM. WITH IV ACCESS ON LFA #20G-SALINE LOCK, PATENT AND INTACT. SAFETY MEASURES IN PLACE: BED IN LOW AND LOCKED POSITION; SIDE RAILS UP X2; CALL LIGHT AND TABLE WITHIN EASY REACH; WILL ENDORSE TO NEXT SHIFT FOR CONTINUITY OF CARE.
--- NOTE | 2023-02-17 19:30 | NUR ---
FEED MILL TENDER OPENING NOTE RECEIVED PT AWAKE IN BED. AT BEDSIDE. A/O X4 AND ABLE TO MAKE NEEDS KNOWN. ON O2 @ 2LPM VIA NC, TOLERATING WELL. NO SOB OR S/S OF RESPIRATORY DISTRESS. BREATHING EVEN AND UNLABORED. ON EXTERNAL YARD ASSOCIATE READING SR 74 BPM WITH PVCS AND PACS. IV ACCESS LFA 20G SL, INTACT AND PATENT. SAFETY PRECAUTIONS IN PLACE. BED IN LOWEST LOCKED POSITION, HOB ELEVATED, SIDE RAILS UP X2, AND CALL LIGHT AND TABLE WITHIN REACH. ALL NEEDS MET AT THIS TIME.
[2023-02-17 20:00] VITALS: BP 118/57
[2023-02-17] MEDS: ATORVASTATIN 40 MG TABLET PO SCH (21:32)
[2023-02-17] MEDS ORDERED: TRAZODONE 50 MG TABLET PO SCH (22:00)
--- NOTE | 2023-02-18 06:50 | NUR ---
DOG BOARDER CLOSING NOTE PT AWAKE IN BED. A/O X4 AND ABLE TO MAKE NEEDS KNOWN. ON O2 @ 2LPM VIA NC, TOLERATING WELL. NO SOB OR S/S OF RESPIRATORY DISTRESS. BREATHING EVEN AND UNLABORED. ON EXTERNAL PROJECT DEVELOPMENT COORDINATOR READING SR 64 BPM WITH PVCS. IV ACCESS LFA 20G SL, INTACT AND PATENT. ALL DUE MEDS GIVEN ORDERED. KEPT CLEAN AND DRY. SAFETY PRECAUTIONS IN PLACE AT ALL TIMES. BED IN LOWEST LOCKED POSITION, HOB ELEVATED, SIDE RAILS UP X2, AND CALL LIGHT AND TABLE WITHIN REACH. ALL NEEDS MET AT THIS TIME AND WILL ENDORSE TO ONCOMING NURSE FOR [place].
--- NOTE | 2023-02-18 07:58 | NUR ---
RN opening note Received Uruguayan speaking PT AWAKE IN BED. complaining of not having enough sleep last night. A/O X4 AND ABLE TO MAKE NEEDS KNOWN. NO SOB OR S/S OF RESPIRATORY DISTRESS. BREATHING EVEN AND UNLABORED. ON EXTERNAL TRAINING REPRESENTATIVE READING Sinus rhythm 72 BPM WITH PVCS. IV ACCESS LFA 20G SL, INTACT AND PATENT. morning assessments completed. lung, heart , and bowel sounds are normal. SAFETY PRECAUTIONS IN PLACE AT ALL TIMES. BED IN LOWEST LOCKED POSITION, HOB ELEVATED, SIDE RAILS UP X2, AND CALL LIGHT AND TABLE WITHIN REACH. BUN is 21.
[2023-02-18 08:00] VITALS: BP 156/59
[2023-02-18] MEDS: LOSARTAN POTASSIUM 50 MG TABLET PO SCH (09:00)
[2023-02-18] MEDS: hydrALAZINE HCL 50 MG TABLET PO SCH ×3 (09:32→17:41)
[2023-02-18] MEDS: ASPIRIN EC 81 MG TABLET.DR PO SCH (09:36)
[2023-02-18] MEDS: ENSURE ENLIVE 237 ML LIQUID (VANILLA) PO SCH ×3 (09:38→17:41)
[2023-02-18] MEDS: NITROGLYCERIN 30 GM TUBE TP SCH (09:42)
[2023-02-18] MEDS: ACETAMINOPHEN 325 MG TABLET PO PRN (12:45)
[2023-02-18] MEDS ORDERED: HYDR-4077 PO (12:47)
[2023-02-18] MEDS ORDERED: TRAZ-252 PO (12:47)
[2023-02-18 16:00] VITALS: BP 112/66
[2023-02-18 17:41] VITALS: BP 112/66
--- NOTE | 2023-02-18 18:55 | NUR ---
RN CLOSING NOTE PT AWAKE IN BED. A/O X4 AND ABLE TO MAKE NEEDS KNOWN. ON O2 @ 2LPM VIA NC, TOLERATING WELL. NO SOB OR S/S OF RESPIRATORY DISTRESS AT THIS TIME. BREATHING EVEN AND UNLABORED. ON EXTERNAL SYSTEMS SPEC READING SR 79 BPM WITH PVCS AND PACS. PT IS GETTING READY TO GET DISCHARGED NOW AND GO HOME. PARTNER WILL COME TO PICK HER UP. IV ACCESS LFA 20G SL AND WILL REMOVE IT RIGHT NOW. SAFETY PRECAUTIONS IN PLACE. BED IN LOWEST LOCKED POSITION, HOB ELEVATED, SIDE RAILS UP X2, AND CALL LIGHT AND TABLE WITHIN REACH. ALL NEEDS MET AT THIS TIME.PT WILL BE DISCHARGED BY END OF MY SHIFT.
--- NOTE | 2023-02-18 20:02 | NUR ---
INPATIENT NURSING AIDEAMPHIBIAN CREWMEMBER NOTES - RECEIVED PATIENT SITTING ON BEDSIDE, A/O X4. ON O2 AT 2LPM VIA NASAL CANULA, INTERMITTENT SHORTNESS OF BREATH NOTED. NO C/O PAIN OR DISCOMFORT AT THIS TIME. ABLE TO AMBULATE WITH SBA AND NEEDS MINIMAL ASSISTANCE WITH ADLS. IV ACCESS REMOVED BY ITZEL RAUSCH. BLOOD DRAWN TO CHECK FOR HEP B/C AND HIV. ALL BELONGINGS ACCOUNTED FOR. DISCHARGE INSTRUCTIONS PROVIDED TO PATIENT. FALL PRECAUTIONS OBSERVED. WHEELED TO LOBBY AT 1948 WITH [facility] (PARTNER). LEFT BY CAR IN STABLE CONDITION.
== END 2023-02-18 19:50 | disposition home health service (06) | DRG 291 ==
LOC: ER 22:23 → TELE 02-15 04:18
PROVIDERS: ADMIT Nurse Practitioner Acute Care; ATTEND Internal Medicine
DX: I11.0 Hypertensive heart disease with heart failure (principal); I50.23 Acute on chronic systolic (congestive) heart failure; J44.9 Chronic obstructive pulmonary disease, unspecified; E78.5 Hyperlipidemia, unspecified; E87.6 Hypokalemia; I08.3 Combined rheumatic disorders of mitral, aortic and tricuspid valves; Z99.81 Dependence on supplemental oxygen; Z79.899 Other long term (current) drug therapy; I89.0 Lymphedema, not elsewhere classified; R79.89 Other specified abnormal findings of blood chemistry; Z87.891 Personal history of nicotine dependence; R00.1 Bradycardia, unspecified; Z20.822 Contact with and (suspected) exposure to COVID-19
CPT/HCPCS: 36415; 71045-TC; 80048-TC; 83735-TC; 83880; 84100-TC; 85025-TC; 86704; 86803; 87081-TC; 87806; 93970-TC; 97110-TC; 97116-TC; 97530-TC; C9803; G0378; J3475

== ENCOUNTER 2023-03-05 04:28 | Inpatient (IN) | payer OTHER ==
[~2023-03-05] VITALS: Ht 157.5 cm; Wt 38.5 kg
[~2023-03-05 04:28] MED LIST changes: -ASPI-1169 PO; +ASPI-1420 PO; -CARV3.122 PO; +CARV6.252 PO; -CEFT1FRO2 IV; -FURO-144 PO; +FURO40TA5 PO; +HYDR-4077 PO; -LOSA25TA27 PO; +LOSA50TA39 PO; -METH4TAB17 PO; +TRAZ-252 PO
--- NOTE | 2023-03-05 04:45 | NUR ---
BIBRA FROM [facility] C/O WORSENING SOB LAST NIGHT. USUALLY ON O2LPM. APPLICATION ARCHITECT BP 195/100 RECEIVED 2 NITRO SPAYS. PT IS WITH NASAL BENITO AT 3LPM SATS 98%. WITH IV BENITO ON LEFT WRIST G20.
--- NOTE | 2023-03-05 04:55 | NUR ---
CAME WITH IV BENITO ON LEFT WRIST G20. BLOOD DRAWN AND SENT TO LAB
--- NOTE | 2023-03-05 04:56 | NUR ---
EKG DONE AT BEDSIDE
[2023-03-05] MEDS ORDERED: FUROSEMIDE 40 MG/4 ML VIAL IV ONE (05:00)
--- NOTE | 2023-03-05 05:00 | NUR ---
COVID SWAB DONE AND SENT TO LAB. CRAYON SORTING MACHINE FEEDER MADE AWARE
[2023-03-05 05:18] LABS: BASOPHILS % (AUTO) 0.5 % (0.0-2.0); EOSINOPHILS % (AUTO) 1.5 % (0.0-6.0); HEMATOCRIT 38 % (33-45); HEMOGLOBIN 12.3 g/dL (11.5-14.8); LYMPHOCYTES # (AUTO) 0.9 K/uL (0.8-4.8); LYMPHOCYTES % (AUTO) 11.2 % (20.0-44.0); MEAN CORPUSCULAR HGB CONC 33 g/dl (31.0-36.0); MEAN CORPUSCULAR VOLUME 96 fL (82-100); MONOCYTES # (AUTO) 0.9 K/uL (0.1-1.30); MONOCYTES % (AUTO) 11.2 % (2.0-12.0); NEUTROPHILS # (AUTO) 6.4 K/uL (1.8-8.9); NEUTROPHILS % (AUTO) 75.6 % (43.0-81.0); PLATELET COUNT (AUTO) 216 K/uL (150-450); RED BLOOD CELL COUNT(AUTO) 3.91 MIL/uL (4.0-5.2); WHITE BLOOD COUNT (AUTO) 8.5 K/uL (4.3-11.0)
[2023-03-05] MEDS ORDERED: FUROSEMIDE 40 MG/4 ML VIAL ONE (05:40)
[2023-03-05 05:47] LABS: ALANINE AMINOTRANSFERASE 33 U/L (12-78); ALBUMIN 3.3 g/dL (3.4-5.0); ALKALINE PHOSPHATASE 71 U/L (46-116); ASPARTATE AMINOTRANSFERASE 26 U/L (15-37); BILIRUBIN,DIRECT 0.2 mg/dL (0.0-0.2); BILIRUBIN,TOTAL 0.5 mg/dL (0.2-1.0); CALCIUM, SERUM 8.7 mg/dL (8.5-10.1); CARBON DIOXIDE 35 mmol/L (21-32); CHLORIDE 90 mmol/L (98-107); CREATININE 0.5 mg/dL (0.6-1.3); GLUCOSE 159 mg/dL (74-106); SODIUM SERUM 130 mmol/L (136-145); TOTAL PROTEIN, SERUM 5.9 g/dL (6.4-8.2); UREA NITROGEN, BLOOD 21 mg/dL (7-18)
[2023-03-05] MEDS ORDERED: CEFTRIAXONE 1GM BAG (ER ONLY) 50 ML IV ONE (05:47)
[2023-03-05] MEDS ORDERED: AZITHROMYCIN 500 MG VIAL ONE (05:47)
[2023-03-05 05:53] LABS: POTASSIUM 2.7 mmol/L (3.5-5.1)
--- NOTE | 2023-03-05 05:58 | NUR ---
: [facility] - CONTACT # HOME: [phone]; CELLPHONE: [phone]
[2023-03-05] MEDS ORDERED: AZITHROMYCIN 500 MG in IV D5W 250 ML IV ONE (06:00)
[2023-03-05] MEDS ORDERED: CEFTRIAXONE 1GM BAG (ER ONLY) 1 GM/50 ML PIGGYBACK IV ONE (06:00)
[2023-03-05] MEDS ORDERED: ASPIRIN 325 MG TABLET ONE (06:11)
[2023-03-05] MEDS ORDERED: ASPIRIN 325 MG TABLET PO ONE (06:30)
[2023-03-05] MEDS ORDERED: POTASSIUM CHLORIDE 10 MEQ/50 ML PREMIXED IVPB FOR PERIPHERAL LINE IV ONE (06:30)
[2023-03-05] MEDS ORDERED: POTASSIUM CL. PREMIX PERIPHER. 50 ML ONE (06:53)
--- NOTE | 2023-03-05 09:59 | NUR ---
room [id number]
--- NOTE | 2023-03-05 10:06 | NUR ---
REPORT GIVEN TO ILDA FOR [place]
--- NOTE | 2023-03-05 10:31 | NUR ---
PT TRANSPORTED TO TELE FLOOR WITH ACLS PROTOCOLS IN PLACE
--- NOTE | 2023-03-05 10:45 | NUR ---
Received patient from ED A/O x 4, no pain, sob nor distress noted. Supplemental oxygen at 2L put in placed. VS taken as follows: Temp 98.7; BP-169/80; HR-93; RR-18; SP02-95. Skin assessment: with bruises on right forearm from IV insertion per patient, a photo was taken, charted. Will continue to monitor
[2023-03-05] MEDS ORDERED: MAGNESIUM HYDROXIDE 30 ML UDC PO PRN (11:30)
[2023-03-05] MEDS: ENOXAPARIN SODIUM 40 MG/0.4 ML DISP.SYRIN SQ SCH (11:30)
[2023-03-05] MEDS ORDERED: Z GUARD REMEDY 4 OZ OINT TP PRN (11:30)
[2023-03-05] MEDS ORDERED: ONDANSETRON HCL/PF 4 MG/2 ML VIAL IVP PRN (11:30)
[2023-03-05] MEDS ORDERED: ALBUTEROL FS 2.5 MG/3 ML VIAL.NEB NEB PRN (11:30)
[2023-03-05] MEDS ORDERED: MAG HYDROX/AL HYDROX/SIMETH 30 ML UDC PO PRN (11:30)
[2023-03-05] MEDS ORDERED: ZOLPIDEM TARTRATE 5 MG TABLET PO PRN (11:30)
[2023-03-05] MEDS: CEFTRIAXONE 1 G in IV D5W 50 ML IV SCH (12:24)
[2023-03-05] MEDS: hydrALAZINE HCL 50 MG TABLET PO SCH ×2 (12:25→17:06)
[2023-03-05] MEDS: ASPIRIN EC 81 MG TABLET.DR PO SCH (12:26)
[2023-03-05] MEDS: AZITHROMYCIN 250 MG TABLET PO SCH (12:27)
[2023-03-05] MEDS: IPRATROPIUM NEB FS 0.5 MG/2.5 ML AMPUL.NEB NEB SCH ×3 (13:30→19:27)
[2023-03-05] MEDS: CARVEDILOL 6.25 MG TABLET PO SCH (17:06)
[2023-03-05] MEDS: FUROSEMIDE 40 MG/4 ML VIAL IV SCH (17:07)
[2023-03-05 18:15] VITALS: BP 124/89
--- NOTE | 2023-03-05 19:35 | NUR ---
RAILROAD SUPERVISOR OF ENGINES OPENING NOTE RECEIVED PATIENT IN BED; AWAKE, ALERT AND ORIENTED X 4. ON O2 INHALATION @ 1 LPM VIA NASAL CANNULA; TOLERATING WELL SATURATING @ 95%. NOT IN ANY FORM OF RESPIRATORY OR CARDIAC DISTRESS. ON EXTERNAL CARDIAC MONITORING WHICH READS SINUS RHYTHM HR-86 BPM. WITH IV ACCESS ON LEFT ANTECUBITAL 20g; PATENT, INTACT AND SALINE LOCKED. ABLE TO MAKE NEEDS KNOWN. FALL AND SAFETY PRECAUTIONS INITIATED: BED ALARM ON, CALL LIGHT AND TABLE WITHIN REACH, SIDE RAILS UP X 3, BED IN LOWEST LOCKED POSITION. WILL CONTINUE TO MONITOR THROUGHOUT SHIFT.
--- NOTE | 2023-03-05 19:43 | NUR ---
RN CLOSING NOTE PATIENT IN BED AWAKE, A/O X4, ABLE TO MAKE NEEDS KNOWN. PATIENT, IV ACCESS ON RIGHT AC #20 SALINE LOCK , C/D/I. PATIENT WITH INHALATION TREATMENT JUST FINISHED, ON 1-2L NC TOLERATING WELL, NO SIGNS OF SOB. NOT IN DISTRESS NOTED. PATIENT ON TELE MONITOR READING OF NORMAL SINUS RHYTHM 80 BPM. NO COMPLAINS OF CHEST PAIN AT THE MOMENT. ALL NEEDS ARE MET. SAFETY MEASURE IN PLACED: BED LOCKED AND IN LOWEST POSITION, SIDE RAILS UP X2, BEDSIDE TABLE AND CALL LIGHT WITHIN PATIENT REACH. ENDORSED TO PM SHIFT NURSE FOR CONTINUITY OF CARE
[2023-03-05] MEDS: ATORVASTATIN 40 MG TABLET PO SCH (23:38)
[2023-03-06 04:00] VITALS: BP 120/56
[2023-03-06 06:25] LABS: BASOPHILS # (AUTO) 0.1 K/uL (0.0-0.2); BASOPHILS % (AUTO) 0.5 % (0.0-2.0); EOSINOPHILS % (AUTO) 2.4 % (0.0-6.0); HEMATOCRIT 36 % (33-45); HEMOGLOBIN 12.2 g/dL (11.5-14.8); LYMPHOCYTES # (AUTO) 0.2 K/uL (0.8-4.8); LYMPHOCYTES % (AUTO) 1.8 % (20.0-44.0); MEAN CORPUSCULAR HGB CONC 34 g/dl (31.0-36.0); MEAN CORPUSCULAR VOLUME 93 fL (82-100); MONOCYTES # (AUTO) 0.5 K/uL (0.1-1.30); MONOCYTES % (AUTO) 4.5 % (2.0-12.0); NEUTROPHILS # (AUTO) 9.8 K/uL (1.8-8.9); NEUTROPHILS % (AUTO) 90.8 % (43.0-81.0); PLATELET COUNT (AUTO) 183 K/uL (150-450); RED BLOOD CELL COUNT(AUTO) 3.89 MIL/uL (4.0-5.2); WHITE BLOOD COUNT (AUTO) 10.8 K/uL (4.3-11.0)
[2023-03-06 06:45] LABS: CALCIUM, SERUM 8.6 mg/dL (8.5-10.1); CARBON DIOXIDE 37 mmol/L (21-32); CHLORIDE 87 mmol/L (98-107); CREATININE 0.7 mg/dL (0.6-1.3); GLUCOSE 115 mg/dL (74-106); SODIUM SERUM 129 mmol/L (136-145); UREA NITROGEN, BLOOD 19 mg/dL (7-18)
[2023-03-06 06:47] LABS: CHOLESTEROL 154 mg/dL (<200); HDL CHOLESTEROL 84 mg/dL (40-60); LDL 64 mg/dL (0-99); POTASSIUM 2.5 mmol/L (3.5-5.1); TRIGLYCERIDES 58 mg/dL (30-150)
--- NOTE | 2023-03-06 06:48 | NUR ---
RN NOTE RECEIVED CRITICAL LAB RESULT POTASSIUM - 2.5. TURKEY FARMER HOSPITALIST GILBERTO PARRA NP; NOTIFIED; AWAITING REPLY.
[2023-03-06 07:00] VITALS: BP 126/70
--- NOTE | 2023-03-06 07:00 | NUR ---
FURNITURE FINISHER HELPER CLOSING NOTE PATIENT IN BED; AWAKE, A/O X 4. STILL ON O2 INHALATION @ 1 LPM VIA NASAL CANNULA; TOLERATING WELL. IN NO ACUTE DISTRESS. ON EXTERNAL CARDIAC MONITORING WHICH READS SINUS RHYTHM HR-85 BPM. WITH IV ACCESS ON LEFT ANTECUBITAL 20g; PATENT, INTACT AND SALINE LOCKED. ALL NEEDS ATTENDED. ALL DUE MEDS GIVEN ORDERED. FALL AND SAFETY PRECAUTIONS MAINTAINED: CALL LIGHT AND TABLE WITHIN REACH, SIDE RAILS UP X 3, BED IN LOWEST LOCKED POSITION. ENDORSED TO MORNING SHIFT FOR CONTINUITY OF CARE.
[2023-03-06] MEDS ORDERED: POTASSIUM CL. PREMIX PERIPHER. 50 ML IV SCH (07:30)
[2023-03-06] MEDS: IPRATROPIUM NEB FS 0.5 MG/2.5 ML AMPUL.NEB NEB SCH ×3 (07:51→19:44)
--- NOTE | 2023-03-06 08:00 | NUR ---
GRAIN THRESHER OPENING NOTE RECEIVED PATIENT IN BED; ASLEEP, EASILY AROUSED, ORIENTED X 4. PT C/O FEELING TIRED AND NOT HAVING SLEPT WELL LAST NIGHT. ON O2 INHALATION @ 1 LPM VIA NASAL CANNULA; TOLERATING WELL SATURATING @ 95%. NOT IN ANY FORM OF RESPIRATORY OR CARDIAC DISTRESS. ON EXTERNAL CARDIAC MONITORING WHICH READS SINUS RHYTHM HR- 70s TO 80s BPM RANGE. PT HAS IV ACCESS ON LEFT ANTECUBITAL 20g: PATENT; INTACT; AND SALINE LOCKED. ABLE TO MAKE NEEDS KNOWN. FALL AND SAFETY PRECAUTIONS INITIATED: BED ALARM ON, CALL LIGHT AND TABLE WITHIN REACH, SIDE RAILS UP X 3, BED IN LOWEST LOCKED POSITION. WILL CONTINUE TO MONITOR AND CARE FOR PATIENT PER HOSPITALIST PROVIDER'S POC.
[2023-03-06] MEDS ORDERED: PANTOPRAZOLE 40 MG VIAL IV SCH (09:00)
[2023-03-06] MEDS: POTASSIUM CHLORIDE 10 MEQ TABLET.SA PO SCH ×3 (09:06→09:46)
[2023-03-06] MEDS: FUROSEMIDE 40 MG/4 ML VIAL IV SCH ×2 (09:08→16:03)
[2023-03-06] MEDS: hydrALAZINE HCL 50 MG TABLET PO SCH ×3 (09:10→16:04)
[2023-03-06] MEDS: CARVEDILOL 6.25 MG TABLET PO SCH ×2 (09:12→17:00)
[2023-03-06] MEDS: POTASSIUM CHLORIDE 20 MEQ TAB.PRT.SR PO SCH ×5 (09:13→13:50)
[2023-03-06] MEDS: LOSARTAN POTASSIUM 50 MG TABLET PO SCH (09:13)
[2023-03-06] MEDS: ASPIRIN EC 81 MG TABLET.DR PO SCH (09:15)
[2023-03-06] MEDS: methylPREDNISolone SOD SUCC 40 MG/ML VIAL IV SCH ×4 (09:17→21:50)
[2023-03-06] MEDS: AZITHROMYCIN 250 MG TABLET PO SCH (10:39)
[2023-03-06] MEDS: CEFTRIAXONE 1 G in IV D5W 50 ML IV SCH (10:41)
[2023-03-06] MEDS: ENOXAPARIN SODIUM 40 MG/0.4 ML DISP.SYRIN SQ SCH (10:47)
[2023-03-06] MEDS ORDERED: IV NS 0.9% 250 ML IV ONE (14:30)
[2023-03-06 16:00] VITALS: BP 88/49
[2023-03-06] MEDS: ACETAMINOPHEN 325 MG TABLET PO PRN (16:06)
--- NOTE | 2023-03-06 18:45 | NUR ---
TIPPLE WORKER CLOSING NOTE (DAY SHIFT) PATIENT IN BED; AWAKE, A/O X 4. STILL ON O2 INHALATION @ 1 LPM VIA NASAL CANNULA; TOLERATING WELL. IN NO ACUTE DISTRESS. ON EXTERNAL CARDIAC MONITORING WHICH READS SINUS RHYTHM HR-85 BPM. WITH IV ACCESS ON LEFT ANTECUBITAL 20g; PATENT, INTACT AND SALINE LOCKED. ALL NEEDS ATTENDED. ALL DUE MEDS GIVEN ORDERED. FALL AND SAFETY PRECAUTIONS MAINTAINED: CALL LIGHT AND TABLE WITHIN REACH, SIDE RAILS UP X 3, BED IN LOWEST LOCKED POSITION. URINE SPECIMEN COLLECTED AND SENT TO LAB. WILL ENDORSE TO GLASS INSTALLER RNTRELL, FOR CONTINUITY OF CARE.
--- NOTE | 2023-03-06 19:35 | NUR ---
AUTOMATIC HEMMER OPENING NOTE RECEIVED PATIENT IN BED; AWAKE, ALERT AND ORIENTED X 4. ON O2 INHALATION @ 1 LPM VIA NASAL CANNULA; TOLERATING WELL SATURATING @ 97%. NOT IN ANY FORM OF RESPIRATORY OR CARDIAC DISTRESS. ON EXTERNAL CARDIAC MONITORING WHICH READS SINUS RHYTHM HR-72 BPM. WITH IV ACCESS ON LEFT ANTECUBITAL 20g; PATENT, INTACT AND SALINE LOCKED. ABLE TO MAKE NEEDS KNOWN. FALL AND SAFETY PRECAUTIONS IMPLEMENTED: BED ALARM ON, CALL LIGHT AND TABLE WITHIN REACH, SIDE RAILS UP X 3, BED IN LOWEST LOCKED POSITION. WILL CONTINUE TO MONITOR THROUGHOUT SHIFT.
[2023-03-06 20:00] VITALS: BP 102/54
[2023-03-06 21:15] LABS: BILIRUBIN,URINE NEGATIVE (NEGATIVE); COLOR,URINE YELLOW (YELLOW); LEUKOCYTE ESTERASE ,URINE 1+ (NEGATIVE); NITRITE, URINE NEGATIVE (NEGATIVE); PROTEIN,URINE 2+ mg/dl (NEGATIVE); UGLUCOSE NEGATIVE (NEGATIVE); UROBILINOGEN,URINE 0.2 EU/dL (0.2)
[2023-03-06 21:40] LABS: BACTERIA,URINE 2+ /HPF (None Seen); MUCUS,URINE Few /LPF (None Seen); RBC,URINE 0-2 /HPF (0-2)
[2023-03-06] MEDS: ATORVASTATIN 40 MG TABLET PO SCH (22:34)
[2023-03-07] VITALS: BP 108/54
[2023-03-07 04:00] VITALS: BP 118/74
[2023-03-07] MEDS: methylPREDNISolone SOD SUCC 40 MG/ML VIAL IV SCH ×3 (05:09→20:30)
[2023-03-07 06:18] LABS: BASOPHILS % (AUTO) 0.1 % (0.0-2.0); EOSINOPHILS % (AUTO) 0.2 % (0.0-6.0); HEMATOCRIT 38 % (33-45); HEMOGLOBIN 12.4 g/dL (11.5-14.8); LYMPHOCYTES # (AUTO) 0.2 K/uL (0.8-4.8); MEAN CORPUSCULAR HGB CONC 33 g/dl (31.0-36.0); MEAN CORPUSCULAR VOLUME 95 fL (82-100); MONOCYTES # (AUTO) 0.4 K/uL (0.1-1.30); MONOCYTES % (AUTO) 3.5 % (2.0-12.0); NEUTROPHILS # (AUTO) 10.8 K/uL (1.8-8.9); NEUTROPHILS % (AUTO) 94.2 % (43.0-81.0); PLATELET COUNT (AUTO) 233 K/uL (150-450); RED BLOOD CELL COUNT(AUTO) 3.96 MIL/uL (4.0-5.2); WHITE BLOOD COUNT (AUTO) 11.4 K/uL (4.3-11.0)
[2023-03-07 06:26] LABS: ALBUMIN 2.9 g/dL (3.4-5.0); BILIRUBIN,TOTAL 0.3 mg/dL (0.2-1.0); CALCIUM, SERUM 9.2 mg/dL (8.5-10.1); MAGNESIUM 2.4 mg/dL (1.8-2.4); PHOSPHORUS 2.9 mg/dL (2.5-4.9); POTASSIUM 5.8 mmol/L (3.5-5.1); TOTAL PROTEIN, SERUM 5.9 g/dL (6.4-8.2)
--- NOTE | 2023-03-07 06:48 | NUR ---
EMERY WHEEL WORKER CLOSING NOTE PATIENT IN BED; AWAKE, A/O X 4. STILL ON O2 INHALATION @ 1 LPM VIA NASAL CANNULA; TOLERATING WELL. IN NO ACUTE DISTRESS. ON EXTERNAL CARDIAC MONITORING WHICH READS SINUS RHYTHM HR-75 BPM. WITH IV ACCESS ON LEFT ANTECUBITAL 20g; PATENT, INTACT AND SALINE LOCKED. ALL NEEDS ATTENDED. ALL DUE MEDS GIVEN ORDERED. FALL AND SAFETY PRECAUTIONS MAINTAINED: CALL LIGHT AND TABLE WITHIN REACH, SIDE RAILS UP X 3, BED IN LOWEST LOCKED POSITION. ENDORSED TO MORNING SHIFT FOR CONTINUITY OF CARE.
[2023-03-07] MEDS: IPRATROPIUM NEB FS 0.5 MG/2.5 ML AMPUL.NEB NEB SCH ×3 (07:40→20:18)
--- NOTE | 2023-03-07 07:40 | NUR ---
GI TECH OPENING NOTE RECEIVED PATIENT IN BED, AWAKE AND ORIENTED X 4. PT C/O FEELING TIRED AND NOT HAVING SLEPT WELL LAST NIGHT. ON O2 INHALATION @ 1 LPM VIA NASAL CANNULA; TOLERATING WELL SATURATING @ 96%. NOT IN ANY FORM OF RESPIRATORY OR CARDIAC DISTRESS. ON EXTERNAL CARDIAC MONITORING WHICH READS SINUS RHYTHM HR- 70s TO 80s BPM RANGE. PT HAS IV ACCESS ON LEFT ANTECUBITAL 20g: PATENT; INTACT; AND SALINE LOCKED. ABLE TO MAKE NEEDS KNOWN. FALL AND SAFETY PRECAUTIONS INITIATED: BED ALARM ON, CALL LIGHT AND TABLE WITHIN REACH, SIDE RAILS UP X 3, BED IN LOWEST LOCKED POSITION. WILL CONTINUE TO MONITOR AND CARE FOR PATIENT PER HOSPITALIST PROVIDER'S POC.
[2023-03-07 08:00] VITALS: BP 148/74
[2023-03-07] MEDS ORDERED: IV NS 0.9% 1,000 ML IV PRN (08:30)
[2023-03-07] MEDS ORDERED: FUROSEMIDE 20 MG/2 ML VIAL IV STA (09:14)
[2023-03-07] MEDS: FUROSEMIDE 40 MG/4 ML VIAL IV SCH (09:31)
[2023-03-07] MEDS: CARVEDILOL 6.25 MG TABLET PO SCH ×2 (09:32→16:36)
[2023-03-07] MEDS: ASPIRIN EC 81 MG TABLET.DR PO SCH (09:32)
[2023-03-07] MEDS: PANTOPRAZOLE 40 MG/PACK PACK PO SCH (09:33)
[2023-03-07] MEDS: AZITHROMYCIN 250 MG TABLET PO SCH (09:33)
[2023-03-07] MEDS: ENOXAPARIN SODIUM 40 MG/0.4 ML DISP.SYRIN SQ SCH (09:35)
[2023-03-07] MEDS: CEFTRIAXONE 1 G in IV D5W 50 ML IV SCH (11:41)
[2023-03-07 12:00] VITALS: BP 125/67
[2023-03-07] MEDS: hydrALAZINE HCL 50 MG TABLET PO SCH ×3 (12:14→16:36)
[2023-03-07] MEDS: LOSARTAN POTASSIUM 50 MG TABLET PO SCH (12:14)
--- NOTE | 2023-03-07 13:00 | NUR ---
MEASURER MACHINE NOTE RE: WITHOLD OF ANTI-HTN MEDS (DAY SHIFT) Patient received double dose of diuretic lasix this morning to help remove excess potassium. Held anti-hypertensive medications to compensate for the anticipated drop in BP from extra lasix. BP still WNL at 12 noon hours VS check so held anti-HTN med again for 13:000 hours dose.
[2023-03-07 16:00] VITALS: BP 134/71
--- NOTE | 2023-03-07 19:08 | NUR ---
COMMANDING OFFICER HOMICIDE SQUAD CLOSING NOTE (DAY SHIFT) PATIENT IN BED; AWAKE, A/O X 4. STILL ON O2 INHALATION @ 1 LPM VIA NASAL CANNULA; TOLERATING WELL. IN NO ACUTE DISTRESS. ON EXTERNAL CARDIAC MONITORING WHICH READS SINUS RHYTHM HR-85 BPM. WITH IV ACCESS ON LEFT ANTECUBITAL 20g; PATENT, INTACT AND SALINE LOCKED. ALL NEEDS ATTENDED. ALL DUE MEDS GIVEN ORDERED. FALL AND SAFETY PRECAUTIONS MAINTAINED: CALL LIGHT AND TABLE WITHIN REACH, SIDE RAILS UP X 3, BED IN LOWEST LOCKED POSITION. LIQUID STOOL SPECIMEN COLLECTED AND SENT TO LAB. MAINTAINIG STRICT I. AND O. AND FLUID RESTRICTION. WILL ENDORSE TO CHANGE MANAGEMENT LEAD RN FOR CONTINUITY OF CARE.
--- NOTE | 2023-03-07 19:15 | NUR ---
RN opening notes Pt is sitting in bed comfortably talking with her boyfriend Kris. Pt is alert and orientedX4. on 1 L NC. No SOB. No S/S of distress noted. IV site at LAC# 20 is clean, intact and flushes well, SL. No diarhea at this time. Per Pt, am nurse collected stool already. safety precautions is maintained. bed at low position, brakes locked, side rails upX2, hob elevated all the time, bed alarm is on and call light is within reach. will continue to monitor.
[2023-03-07 20:00] VITALS: BP 121/82
[2023-03-07] MEDS: BUDESONIDE RESPULE INH 0.25 MG/2 ML AMPUL.NEB NEB SCH (20:19)
[2023-03-07] MEDS: ATORVASTATIN 40 MG TABLET PO SCH (21:05)
[2023-03-07] MEDS: TEMAZEPAM 7.5 MG CAPSULE PO PRN (22:58)
--- NOTE | 2023-03-07 23:00 | NUR ---
RN notes Pt is having insomnia and requesting a sleeping pill. administeerd restoril as ordered for sleeping. safety precautions is maintained. will continue to monitor.
[2023-03-08] VITALS (7 sets, daily range): BP systolic 106–161; BP diastolic 58–86
--- NOTE | 2023-03-08 04:00 | NUR ---
RN notes Pt refuses VS. Explained risks and benefits. Pt agitated easily. Pt keep refusing. will continue to monitor.
[2023-03-08] MEDS: methylPREDNISolone SOD SUCC 40 MG/ML VIAL IV SCH ×3 (04:20→20:21)
[2023-03-08 06:02] LABS: BASOPHILS % (AUTO) 0.1 % (0.0-2.0); HEMATOCRIT 36 % (33-45); HEMOGLOBIN 12.1 g/dL (11.5-14.8); LYMPHOCYTES # (AUTO) 0.2 K/uL (0.8-4.8); LYMPHOCYTES % (AUTO) 2.7 % (20.0-44.0); MEAN CORPUSCULAR HGB CONC 34 g/dl (31.0-36.0); MEAN CORPUSCULAR VOLUME 93 fL (82-100); MONOCYTES # (AUTO) 0.3 K/uL (0.1-1.30); MONOCYTES % (AUTO) 3.8 % (2.0-12.0); NEUTROPHILS # (AUTO) 7.9 K/uL (1.8-8.9); NEUTROPHILS % (AUTO) 93.4 % (43.0-81.0); PLATELET COUNT (AUTO) 212 K/uL (150-450); RED BLOOD CELL COUNT(AUTO) 3.87 MIL/uL (4.0-5.2); WHITE BLOOD COUNT (AUTO) 8.5 K/uL (4.3-11.0)
--- NOTE | 2023-03-08 06:36 | NUR ---
RN closing notes Pt is resting in bed comfortably. Pt is alert and orientedX4. on 1 L NC. No SOB. No S/S of distress noted. IV site at LAC# 20 is clean, intact and flushes well, SL. Tele monitor showed SR hr at 72. Routine meds were given as ordered. No BM throughtout pm shift. Kept Pt clean, dry and comfortable. safety precautions is maintained. bed at low position, brakes locked, side rails upX2, hob elevated all the time, bed alarm is on and call light is within reach. Will endorse to am nurse for RICO.
[2023-03-08 06:45] LABS: ALANINE AMINOTRANSFERASE 122 U/L (12-78); ALBUMIN 2.6 g/dL (3.4-5.0); ALKALINE PHOSPHATASE 72 U/L (46-116); ASPARTATE AMINOTRANSFERASE 50 U/L (15-37); BILIRUBIN,TOTAL 0.3 mg/dL (0.2-1.0); CALCIUM, SERUM 8.6 mg/dL (8.5-10.1); CARBON DIOXIDE 34 mmol/L (21-32); CHLORIDE 91 mmol/L (98-107); CREATININE 0.8 mg/dL (0.6-1.3); GLUCOSE 134 mg/dL (74-106); MAGNESIUM 2.2 mg/dL (1.8-2.4); POTASSIUM 4.9 mmol/L (3.5-5.1); SODIUM SERUM 132 mmol/L (136-145); TOTAL PROTEIN, SERUM 5.3 g/dL (6.4-8.2); UREA NITROGEN, BLOOD 31 mg/dL (7-18)
--- NOTE | 2023-03-08 07:56 | NUR ---
OCCUPATIONAL HEALTH PHYSICIAN OPENING NOTE (DAY SHIFT) RECEIVED PATIENT IN BED, AWAKE AND ORIENTED X 4. PT STATED SHE SLEPT WELL , BETTER THAN THE NIGHT BEFORE. ON O2 INHALATION @ 1 LPM VIA NASAL CANNULA, TOLERATING WELL WITH SATURATION @ 94%. NOT IN ANY FORM OF RESPIRATORY OR CARDIAC DISTRESS. ON EXTERNAL CARDIAC MONITORING WHICH READS SINUS RHYTHM HR- 70s TO 80s BPM RANGE. PT HAS IV ACCESS ON LEFT ANTECUBITAL 20g: PATENT; INTACT; AND SALINE LOCKED. ABLE TO MAKE NEEDS KNOWN. FALL AND SAFETY PRECAUTIONS MAINTAINED: BED ALARM ON, CALL LIGHT AND TABLE WITHIN REACH, SIDE RAILS UP X 3, BED IN LOWEST LOCKED POSITION. WILL CONTINUE TO MONITOR AND CARE FOR PATIENT PER HOSPITALIST PROVIDER'S POC.
[2023-03-08] MEDS: IPRATROPIUM NEB FS 0.5 MG/2.5 ML AMPUL.NEB NEB SCH ×3 (08:25→20:08)
[2023-03-08] MEDS: BUDESONIDE RESPULE INH 0.25 MG/2 ML AMPUL.NEB NEB SCH ×2 (08:25→20:08)
[2023-03-08] MEDS: PANTOPRAZOLE 40 MG/PACK PACK PO SCH (08:35)
[2023-03-08] MEDS: CARVEDILOL 6.25 MG TABLET PO SCH ×2 (08:36→17:57)
[2023-03-08] MEDS: ASPIRIN EC 81 MG TABLET.DR PO SCH (08:36)
[2023-03-08] MEDS: LOSARTAN POTASSIUM 50 MG TABLET PO SCH (08:37)
[2023-03-08] MEDS: AZITHROMYCIN 250 MG TABLET PO SCH (08:37)
[2023-03-08] MEDS: hydrALAZINE HCL 50 MG TABLET PO SCH ×3 (08:38→17:57)
[2023-03-08] MEDS: ENOXAPARIN SODIUM 40 MG/0.4 ML DISP.SYRIN SQ SCH (08:40)
[2023-03-08] MEDS: CEFTRIAXONE 1 G in IV D5W 50 ML IV SCH (11:52)
[2023-03-08] MEDS: PROSOURCE / PROSTAT (PYXIS) 30 ML UDC GT SCH ×2 (13:11→17:56)
--- NOTE | 2023-03-08 18:55 | NUR ---
LINE DEPARTMENT SUPERVISOR CLOSING NOTE (DAY SHIFT) PATIENT IN BED; AWAKE, A/O X 4. STILL ON O2 INHALATION @ 1 LPM VIA NASAL CANNULA; TOLERATING WELL. IN NO ACUTE DISTRESS. ON EXTERNAL CARDIAC MONITORING WHICH READS SINUS RHYTHM HR-80S BPM. WITH IV ACCESS ON LEFT ANTECUBITAL 20g; PATENT, INTACT AND SALINE LOCKED. ALL NEEDS ATTENDED. ALL DUE MEDS GIVEN ORDERED. FALL AND SAFETY PRECAUTIONS MAINTAINED: CALL LIGHT AND TABLE WITHIN REACH, SIDE RAILS UP X 3, BED IN LOWEST LOCKED POSITION. LIQUID STOOL SPECIMEN COLLECTED AND SENT TO LAB. MAINTAINIG STRICT I. AND O. AND FLUID RESTRICTION. WILL ENDORSE TO AUDITING CODER RN FOR CONTINUITY OF CARE.
--- NOTE | 2023-03-08 20:09 | NUR ---
RINK RAT Opening Note Pt in bed, awake, A/O x4, on O2 1L via NC. On tele monitoring. IV access on LAC 20G SL. Safety measures in place, bed in low, locked, call light at reach, side rails up x3. Strict I&O/fluid. Will continue to monitoring pt.
[2023-03-08] MEDS: ATORVASTATIN 40 MG TABLET PO SCH (22:22)
[2023-03-08] MEDS: TEMAZEPAM 7.5 MG CAPSULE PO PRN (23:14)
[2023-03-09 00:13] VITALS: BP 144/56
[2023-03-09] MEDS: methylPREDNISolone SOD SUCC 40 MG/ML VIAL IV SCH ×3 (04:03→21:10)
[2023-03-09] MEDS: ACETAMINOPHEN 325 MG TABLET PO PRN ×2 (04:34→23:01)
[2023-03-09 04:46] VITALS: BP 159/88
[2023-03-09 05:00] VITALS: BP 131/63
[2023-03-09 06:08] LABS: HEMATOCRIT 39 % (33-45); HEMOGLOBIN 12.7 g/dL (11.5-14.8); LYMPHOCYTES # (AUTO) 0.2 K/uL (0.8-4.8); LYMPHOCYTES % (AUTO) 2.5 % (20.0-44.0); MEAN CORPUSCULAR HGB CONC 32 g/dl (31.0-36.0); MEAN CORPUSCULAR VOLUME 97 fL (82-100); MONOCYTES # (AUTO) 0.3 K/uL (0.1-1.30); MONOCYTES % (AUTO) 3.1 % (2.0-12.0); NEUTROPHILS # (AUTO) 8.5 K/uL (1.8-8.9); NEUTROPHILS % (AUTO) 94.4 % (43.0-81.0); PLATELET COUNT (AUTO) 278 K/uL (150-450); RED BLOOD CELL COUNT(AUTO) 4.05 MIL/uL (4.0-5.2)
[2023-03-09 06:47] LABS: CALCIUM, SERUM 8.7 mg/dL (8.5-10.1); CREATININE 0.8 mg/dL (0.6-1.3); PHOSPHORUS 3.1 mg/dL (2.5-4.9); POTASSIUM 3.9 mmol/L (3.5-5.1)
--- NOTE | 2023-03-09 06:48 | NUR ---
RN closing notes Pt is resting in bed comfortably. Pt is alert and orientedX4. on 1 L NC. No SOB. No S/S of distress noted. IV site at LAC# 20 is clean, intact and flushes well, SL. Tele monitor showed SR hr at 73. Routine meds were given as ordered. Kept Pt clean, dry and comfortable. all needs met and attended. safety precautions is maintained. bed at low position, brakes locked, side rails upX2, hob elevated all the time, bed alarm is on and call light is within reach. Will endorse to am nurse for RIOC.
--- NOTE | 2023-03-09 07:54 | NUR ---
COPIER FIELD SERVICE TECHNICIAN OPENING NOTE RECEIVED PATIENT IN BED WITH HOB AT 90 DEGREES, AWAKE AND ORIENTED X 4. PATIENT SAID SHE JUST WANTED TO SLEEP MORE. ON 1 LPM O2 VIA NASAL CANNULA, NO SOB AT THE MOMENT. NOT IN ANY ACUTE DISTRESS NOTED. ON TELEMONITORING WITH CURRENT READING OF SINUS RHYTHM WITH 64 BPM. IV ACCESS ON LAC G#20 SALINE LOCKED, PATENT AND FLUSHING WELL. FALL AND SAFETY PRECAUTIONS IN PLACE: BED IN LOWEST AND LOCKED POSITION, CALL LIGHT AND TRAY TABLE WITHIN EASY REACH, SIDE RAILS UP X 2. WILL CONTINUE TO MONITOR.
[2023-03-09] MEDS: IPRATROPIUM NEB FS 0.5 MG/2.5 ML AMPUL.NEB NEB SCH ×3 (08:37→20:41)
[2023-03-09] MEDS: BUDESONIDE RESPULE INH 0.25 MG/2 ML AMPUL.NEB NEB SCH ×2 (08:38→20:41)
[2023-03-09 09:07] VITALS: BP 145/86
[2023-03-09] MEDS: PANTOPRAZOLE 40 MG/PACK PACK PO SCH (09:23)
[2023-03-09] MEDS: PROSOURCE / PROSTAT (PYXIS) 30 ML UDC GT SCH ×3 (09:23→17:49)
[2023-03-09] MEDS: CARVEDILOL 6.25 MG TABLET PO SCH ×2 (09:24→17:50)
[2023-03-09] MEDS: ASPIRIN EC 81 MG TABLET.DR PO SCH (09:24)
[2023-03-09] MEDS: hydrALAZINE HCL 50 MG TABLET PO SCH ×3 (09:24→17:49)
--- NOTE | 2023-03-09 10:24 | NUR ---
RN NOTES - CALLED PHARMACY TO SWITCH PANTOPRAZOLE GRANULES TO TABLET.
[2023-03-09] MEDS: ALBUTEROL HALF STRENGTH 1.25 MG/3 ML VIAL.NEB NEB SCH ×3 (11:00→20:41)
[2023-03-09] MEDS: AZITHROMYCIN 250 MG TABLET PO SCH (11:09)
[2023-03-09] MEDS: CEFTRIAXONE 1 G in IV D5W 50 ML IV SCH (11:10)
[2023-03-09] MEDS: ENOXAPARIN SODIUM 40 MG/0.4 ML DISP.SYRIN SQ SCH (11:12)
[2023-03-09 12:47] VITALS: BP 124/64
[2023-03-09 13:50] LABS: ABG BASE EXCESS 8.3 mmol/L; ABG OXYGEN SATURATION 97.3 % (92.0-98.5); ABG PCO2 46.5 mmHg (35.0-45.0); ABG PH 7.471 (7.350-7.450); ABG PO2 94.8 mmHg (75.0-100.0); COHb 0.7 % (0.5-1.5); MetHb 0.2 % (0.0-1.5); O2Hb 96.4 % (94.0-97.0); SITE, ABG Right Brachial
--- NOTE | 2023-03-09 13:50 | NUR ---
RN NOTES - LAC IV ACCESS, GOT PULLED OUT, PRESSURE GAUZE APPLIED, NO BLEEDING NOTED. NEW LINE LFA G#22 STARTED, PATENT AND FLUSHING WELL.
--- NOTE | 2023-03-09 18:22 | NUR ---
RN NOTES - PT ATTEMPTED TO WALK WITH ASSISTANCE, ON 2LPM OXYGEN VIA NC, PATIENT ONLY TOLERATED ABOUT 3 MINUTES OF AMBULATION. REQUESTED TO GO BACK TO BED.
--- NOTE | 2023-03-09 19:44 | NUR ---
LEAD FORMER CLOSING NOTE PATIENT AWAKE IN BED WITH HOB AT 90 DEGREES, AWAKE AND ORIENTED X 4. ON 2 LPM O2 VIA NASAL CANNULA, NO SOB AT THE MOMENT. NOT IN ANY ACUTE DISTRESS NOTED. ON TELEMONITORING WITH CURRENT READING OF SINUS RHYTHM WITH 79 BPM. IV ACCESS ON LFA G#22 SALINE LOCKED, PATENT AND FLUSHING WELL. FALL AND SAFETY PRECAUTIONS MAINTAINED: BED IN LOWEST AND LOCKED POSITION, CALL LIGHT AND TRAY TABLE WITHIN EASY REACH, SIDE RAILS UP X 2. PATIENT WANTED TO MOVE ROOM, ENDORSED TO GAS LOAD DISPATCHER NURSE.
[2023-03-09 20:00] VITALS: BP 111/49
[2023-03-09] MEDS: ATORVASTATIN 40 MG TABLET PO SCH (21:10)
--- NOTE | 2023-03-09 22:14 | NUR ---
LEAD NETWORK ARCHITECT OPENING NOTES RECEIVED PATIENT IS IN BED, ON HIGH BACK REST POSITION HOOKED TO OXYGEN VIA NASAL CANNULA AT 2LPMSATURATING WELL NO COMPLAIN OF SOB/ NOTED, AMBULATE WITH ASSISTANCE AND OXYGEN. INCONTINENT USES DIAPER, WITH IV ACCESS AT LAC #20G -SL. NO PAIN OR DISCOMFORT NOTED AT THIS TIME, FOR STRICT INTAKE AND OUTPUT. KEPT BED ON LOWER LOCKED POSITION, KEPT SIDE RAILS UP X 2 ALL THE TIME, KEPT CALL LIGHT WITHIN AT REACH. WILL CONTINUE TO MONITOR FOR RICO.
[2023-03-10] VITALS: BP 105/65
[2023-03-10] MEDS: ALBUTEROL HALF STRENGTH 1.25 MG/3 ML VIAL.NEB NEB SCH ×3 (01:30→13:58)
[2023-03-10] MEDS ORDERED: TEMAZEPAM 7.5 MG CAPSULE PO PRN (02:00)
--- NOTE | 2023-03-10 02:00 | NUR ---
RN NOTES PATIENT REFUSED BREATHING TREATMENT. NO SOB/ AT THIS TIME. WILL CONTINUE TO MONITOR
[2023-03-10] MEDS: methylPREDNISolone SOD SUCC 40 MG/ML VIAL IV SCH ×2 (05:19→12:11)
[2023-03-10 06:19] LABS: BASOPHILS % (AUTO) 0.1 % (0.0-2.0); HEMATOCRIT 40 % (33-45); HEMOGLOBIN 13.3 g/dL (11.5-14.8); LYMPHOCYTES # (AUTO) 0.4 K/uL (0.8-4.8); LYMPHOCYTES % (AUTO) 4.7 % (20.0-44.0); MEAN CORPUSCULAR HGB CONC 33 g/dl (31.0-36.0); MEAN CORPUSCULAR VOLUME 95 fL (82-100); MONOCYTES # (AUTO) 0.5 K/uL (0.1-1.30); MONOCYTES % (AUTO) 5.6 % (2.0-12.0); NEUTROPHILS # (AUTO) 7.3 K/uL (1.8-8.9); NEUTROPHILS % (AUTO) 89.6 % (43.0-81.0); PLATELET COUNT (AUTO) 309 K/uL (150-450); RED BLOOD CELL COUNT(AUTO) 4.25 MIL/uL (4.0-5.2); WHITE BLOOD COUNT (AUTO) 8.2 K/uL (4.3-11.0)
--- NOTE | 2023-03-10 06:48 | NUR ---
SALES SUPERINTENDENT CLOSING NOTES PATIENT IS IN BED, ON HIGH BACK REST POSITION HOOKED TO OXYGEN VIA NASAL CANNULA AT 2LPMSATURATING WELL NO COMPLAIN OF SOB/ NOTED, AMBULATE WITH ASSISTANCE AND OXYGEN. INCONTINENT USES DIAPER, WITH IV ACCESS AT LAC #20G -SL. ALL DUE MEDICATIONS GIVEN, ALL NEEDS ATTENDED. PM CARE RENDERED, NO PAIN OR DISCOMFORT NOTED AT THIS TIME, FOR STRICT INTAKE AND OUTPUT. KEPT BED ON LOWER LOCKED POSITION, KEPT SIDE RAILS UP X 2 ALL THE TIME, KEPT CALL LIGHT WITHIN AT REACH. WILL ENDORSED TO NEXT SHIFT FOR RICO.
[2023-03-10 07:00] VITALS: BP 136/75
[2023-03-10 07:04] LABS: CALCIUM, SERUM 8.6 mg/dL (8.5-10.1); CARBON DIOXIDE 33 mmol/L (21-32); CHLORIDE 95 mmol/L (98-107); CREATININE 0.6 mg/dL (0.6-1.3); GLUCOSE 123 mg/dL (74-106); MAGNESIUM 2.2 mg/dL (1.8-2.4); PHOSPHORUS 3.6 mg/dL (2.5-4.9); POTASSIUM 4.2 mmol/L (3.5-5.1); SODIUM SERUM 132 mmol/L (136-145); UREA NITROGEN, BLOOD 33 mg/dL (7-18)
--- NOTE | 2023-03-10 07:50 | NUR ---
ONCOLOGY CONSULTANT OPENING NOTES PATIENT SLEEPING IN BED, A/OX4. ON HIGH BACK REST POSITION HOOKED TO OXYGEN VIA NASAL CANNULA AT 2LPM SATURATING WELL, ON TELE MONITOR CURRENT READING OF SR HR 82. NO COMPLAIN OF SOB/ NOTED, AMBULATE WITH ASSISTANCE AND OXYGEN. INCONTINENT USES DIAPER, WITH IV ACCESS AT LFA #20G -SL. NO PAIN OR DISCOMFORT NOTED AT THIS TIME, FOR STRICT INTAKE AND OUTPUT. KEPT BED ON LOWER LOCKED POSITION, KEPT SIDE RAILS UP X 2 ALL THE TIME, KEPT CALL LIGHT WITHIN AT REACH. WILL CONTINUE TO MONITOR
[2023-03-10] MEDS: BUDESONIDE RESPULE INH 0.25 MG/2 ML AMPUL.NEB NEB SCH (08:00)
[2023-03-10] MEDS: IPRATROPIUM NEB FS 0.5 MG/2.5 ML AMPUL.NEB NEB SCH ×2 (08:01→13:58)
[2023-03-10] MEDS: PROSOURCE / PROSTAT (PYXIS) 30 ML UDC GT SCH ×3 (08:15→17:39)
[2023-03-10] MEDS: ASPIRIN EC 81 MG TABLET.DR PO SCH (08:17)
[2023-03-10] MEDS: hydrALAZINE HCL 50 MG TABLET PO SCH ×3 (08:17→17:00)
[2023-03-10] MEDS: CARVEDILOL 6.25 MG TABLET PO SCH ×2 (08:18→17:00)
[2023-03-10] MEDS ORDERED: PANTOPRAZOLE 40 MG TABLET.DR PO SCH (09:00)
[2023-03-10] MEDS: ENOXAPARIN SODIUM 40 MG/0.4 ML DISP.SYRIN SQ SCH (11:54)
[2023-03-10 11:58] VITALS: BP 149/75
[2023-03-10] MEDS: CEFTRIAXONE 1 G in IV D5W 50 ML IV SCH (12:15)
[2023-03-10] MEDS ORDERED: METH4TAB3 PO ×2 (12:23→12:25)
[2023-03-10] MEDS ORDERED: ALBUTEROL FS 2.5 MG/3 ML VIAL.NEB NEB PRN (12:30)
[2023-03-10] MEDS ORDERED: POTA20TA83 PO (12:30)
[2023-03-10] MEDS ORDERED: IPRATROPIUM NEB FS 0.5 MG/2.5 ML AMPUL.NEB NEB PRN (12:30)
[2023-03-10] MEDS ORDERED: methylPREDNISolone SOD SUCC 40 MG/ML VIAL IV SCH (14:00)
[2023-03-10 17:00] VITALS: BP 145/100
[2023-03-10] MEDS ORDERED: ENSURE ENLIVE 237 ML LIQUID (VANILLA) PO SCH (17:00)
--- NOTE | 2023-03-10 18:24 | NUR ---
DISCHARGED NOTE DISCHARGED PATIENT TO HOME WITH HOME HEALTH CARE IN STABLE CONDITION. A/OX4, ON OXYGEN AT 2LPM, TOLERATING WELL AND NOT IN RESPIRATORY AND/OR CARDIAC DISTRESS. . VITALS TAKEN, STABLE AND RECORDED. DENIES ANY PAIN OR DISCOMFORT AT THIS TIME. ALL BELONGINGS ACCOUNTED TO THE PATIENT, HOME MEDICATIONS GIVEN FROM PHARMACY. ALL DUE MEDS GIVEN, DISCHARGED INSTRUCTION GIVEN TO THE PATIENT, VERBALIZED UNDERSTANDING. IV ACCESS REMOVED ASEPTICALLY, NO SWELLING OR BLEEDING NOTED. TOOK PICTURE OF SKIN ISSUES, PLACED IN THE CHART. PATIENT LEFT THE UNIT WITH OXYGEN ON AT 3LPM, ASSISTED BY HILARY YU.
[2023-03-10] MEDS ORDERED: TRAZODONE 50 MG TABLET PO SCH (22:00)
[2023-03-11] MEDS ORDERED: FUROSEMIDE 40 MG TABLET PO SCH (09:00)
[2023-03-11] MEDS ORDERED: methylPREDNISolone SOD SUCC 40 MG/ML VIAL IV SCH (09:00)
== END 2023-03-10 18:22 | disposition home health service (06) | DRG 177 ==
LOC: ER 04:31 → TELE 10:11
PROVIDERS: ADMIT Nurse Practitioner Acute Care; ATTEND Nurse Practitioner Acute Care
DX: J15.6 Pneumonia due to other Gram-negative bacteria (principal); I21.A1 Myocardial infarction type 2; I50.43 Acute on chronic combined systolic (congestive) and diastolic (congestive) heart failure; J96.21 Acute and chronic respiratory failure with hypoxia; J44.1 Chronic obstructive pulmonary disease with (acute) exacerbation; E87.1 Hypo-osmolality and hyponatremia; J90 Pleural effusion, not elsewhere classified; I11.0 Hypertensive heart disease with heart failure; Z20.822 Contact with and (suspected) exposure to COVID-19; Z79.51 Long term (current) use of inhaled steroids; Z79.82 Long term (current) use of aspirin; Z79.899 Other long term (current) drug therapy; E87.6 Hypokalemia; Z91.148 Patient's other noncompliance with medication regimen for other reason; F17.200 Nicotine dependence, unspecified, uncomplicated; I25.10 Atherosclerotic heart disease of native coronary artery without angina pectoris; T50.1X5A Adverse effect of loop [high-ceiling] diuretics, initial encounter; Y92.009 Unspecified place in unspecified non-institutional (private) residence as the place of occurrence of the external cause; Z98.51 Tubal ligation status; B35.1 Tinea unguium
CPT/HCPCS: 36415; 36600; 71045-TC; 71250-TC; 80048-TC; 80053-TC; 80061-TC; 80076-TC; 81001; 82962-TC; 83605-TC; 83735-TC; 83880; 84100-TC; 84300-TC; 84484-TC; 85025-TC; 85730-TC; 87040-TC; 87081-TC; 87086-TC; 94799-TC; 97116-TC; 97530-TC; A4223; C9113; C9803; G0378; J0456; J0696; J1650; J1940; J2920; J3480; J7030; J7050; J7060

== ENCOUNTER 2023-03-10 22:05 | Inpatient (IN) | payer OTHER ==
[~2023-03-10] VITALS: Ht 157.5 cm; Wt 41.3 kg
[~2023-03-10 22:05] MED LIST changes: +METH4TAB3 PO; +POTA20TA83 PO
[2023-03-10 23:49] LABS: BASOPHILS % (AUTO) 0.1 % (0.0-2.0); HEMATOCRIT 43 % (33-45); HEMOGLOBIN 14.3 g/dL (11.5-14.8); LYMPHOCYTES # (AUTO) 0.5 K/uL (0.8-4.8); MEAN CORPUSCULAR HGB CONC 34 g/dl (31.0-36.0); MEAN CORPUSCULAR VOLUME 94 fL (82-100); MONOCYTES # (AUTO) 1.3 K/uL (0.1-1.30); NEUTROPHILS # (AUTO) 8.8 K/uL (1.8-8.9); NEUTROPHILS % (AUTO) 82.9 % (43.0-81.0); PLATELET COUNT (AUTO) 366 K/uL (150-450); RED BLOOD CELL COUNT(AUTO) 4.54 MIL/uL (4.0-5.2); WHITE BLOOD COUNT (AUTO) 10.6 K/uL (4.3-11.0)
[2023-03-11 00:04] LABS: CALCIUM, SERUM 8.8 mg/dL (8.5-10.1); CARBON DIOXIDE 35 mmol/L (21-32); CHLORIDE 95 mmol/L (98-107); CREATININE 0.8 mg/dL (0.6-1.3); GLUCOSE 123 mg/dL (74-106); POTASSIUM 4.1 mmol/L (3.5-5.1); SODIUM SERUM 131 mmol/L (136-145); UREA NITROGEN, BLOOD 27 mg/dL (7-18)
[2023-03-11 00:18] LABS: ALANINE AMINOTRANSFERASE 105 U/L (12-78); ALBUMIN 2.9 g/dL (3.4-5.0); ALKALINE PHOSPHATASE 82 U/L (46-116); ASPARTATE AMINOTRANSFERASE 28 U/L (15-37); BILIRUBIN,DIRECT 0.1 mg/dL (0.0-0.2); BILIRUBIN,TOTAL 0.3 mg/dL (0.2-1.0); TOTAL PROTEIN, SERUM 5.9 g/dL (6.4-8.2)
[2023-03-11] MEDS ORDERED: hydrALAZINE HCL IV 20 MG VIAL IV PRN (00:30)
[2023-03-11] MEDS ORDERED: ONDANSETRON HCL/PF 4 MG/2 ML VIAL IVP PRN (00:30)
[2023-03-11] MEDS ORDERED: methylPREDNISolone DOSPAK(4MG) 1 PACK TAB.DS.PK PO SCH (00:30)
[2023-03-11] MEDS ORDERED: ALBUTEROL FS 2.5 MG/3 ML VIAL.NEB NEB PRN (00:30)
[2023-03-11] MEDS ORDERED: IPRATROPIUM NEB FS 0.5 MG/2.5 ML AMPUL.NEB NEB PRN (00:30)
[2023-03-11] MEDS ORDERED: FUROSEMIDE 40 MG/4 ML VIAL IV ONE ×2 (00:30)
[2023-03-11] MEDS ORDERED: MORPHINE SULFATE INJ 2 MG/ML DISP.SYRIN IV PRN (00:30)
[2023-03-11] MEDS ORDERED: FUROSEMIDE 40 MG/4 ML VIAL ONE (03:56)
[2023-03-11] MEDS: ENOXAPARIN SODIUM 40 MG/0.4 ML DISP.SYRIN SQ SCH ×2 (04:00→21:56)
[2023-03-11] MEDS ORDERED: methylPREDNISolone (4MG) 4 MG TABLET (DAY #1 ACB) PO ONE (07:30)
[2023-03-11 08:00] VITALS: BP 183/89
[2023-03-11] MEDS: POTASSIUM CHLORIDE 20 MEQ TAB.PRT.SR PO SCH (08:41)
[2023-03-11] MEDS: hydrALAZINE HCL 50 MG TABLET PO SCH ×3 (08:42→17:34)
[2023-03-11] MEDS: ASPIRIN EC 81 MG TABLET.DR PO SCH (08:42)
[2023-03-11] MEDS: LOSARTAN POTASSIUM 50 MG TABLET PO SCH (08:42)
[2023-03-11] MEDS: CARVEDILOL 6.25 MG TABLET PO SCH ×2 (08:42→17:33)
[2023-03-11] MEDS: ENSURE ENLIVE 237 ML LIQUID (VANILLA) PO SCH ×2 (09:12→17:54)
[2023-03-11] MEDS: FUROSEMIDE 40 MG TABLET PO SCH (10:58)
[2023-03-11 12:00] VITALS: BP 111/55
[2023-03-11] MEDS ORDERED: methylPREDNISolone (4MG) 4 MG TABLET (DAY #1, PC LUNCH) PO ONE (12:30)
[2023-03-11 16:00] VITALS: BP 111/55
[2023-03-11] MEDS ORDERED: methylPREDNISolone (4MG) 4 MG TABLET (DAY #1 PC DINNER) PO ONE (17:30)
[2023-03-11] MEDS: IPRATROPIUM NEB FS 0.5 MG/2.5 ML AMPUL.NEB NEB SCH ×2 (17:58→19:33)
[2023-03-11] MEDS: ALBUTEROL FS 2.5 MG/3 ML VIAL.NEB NEB SCH ×2 (17:58→19:30)
[2023-03-11 20:00] VITALS: BP 129/58
[2023-03-11] MEDS: ATORVASTATIN 40 MG TABLET PO SCH (21:56)
[2023-03-11] MEDS: TRAZODONE 50 MG TABLET PO SCH (21:56)
[2023-03-11] MEDS ORDERED: methylPREDNISolone (4MG) 4 MG TABLET (DAY1,HS) PO ONE (22:00)
[2023-03-11] MEDS ORDERED: methylPREDNISolone (4MG) 4 MG TABLET ONE (22:33)
[2023-03-12] VITALS: BP 132/56
[2023-03-12] MEDS: IPRATROPIUM NEB FS 0.5 MG/2.5 ML AMPUL.NEB NEB SCH ×4 (03:26→20:12)
[2023-03-12] MEDS: ALBUTEROL FS 2.5 MG/3 ML VIAL.NEB NEB SCH ×4 (03:26→20:12)
[2023-03-12 04:00] VITALS: BP 154/59
[2023-03-12 07:04] LABS: BASOPHILS % (AUTO) 0.3 % (0.0-2.0); EOSINOPHILS % (AUTO) 0.1 % (0.0-6.0); HEMATOCRIT 42 % (33-45); HEMOGLOBIN 13.9 g/dL (11.5-14.8); LYMPHOCYTES # (AUTO) 0.4 K/uL (0.8-4.8); LYMPHOCYTES % (AUTO) 4.4 % (20.0-44.0); MEAN CORPUSCULAR HGB CONC 33 g/dl (31.0-36.0); MEAN CORPUSCULAR VOLUME 95 fL (82-100); MONOCYTES # (AUTO) 0.6 K/uL (0.1-1.30); MONOCYTES % (AUTO) 6.2 % (2.0-12.0); NEUTROPHILS # (AUTO) 8.1 K/uL (1.8-8.9); PLATELET COUNT (AUTO) 307 K/uL (150-450); RED BLOOD CELL COUNT(AUTO) 4.44 MIL/uL (4.0-5.2); WHITE BLOOD COUNT (AUTO) 9.1 K/uL (4.3-11.0)
[2023-03-12 07:15] LABS: ALBUMIN 2.8 g/dL (3.4-5.0); BILIRUBIN,TOTAL 0.4 mg/dL (0.2-1.0); CALCIUM, SERUM 8.5 mg/dL (8.5-10.1); CREATININE 0.8 mg/dL (0.6-1.3); MAGNESIUM 2.2 mg/dL (1.8-2.4); PHOSPHORUS 3.4 mg/dL (2.5-4.9); POTASSIUM 3.6 mmol/L (3.5-5.1); TOTAL PROTEIN, SERUM 5.5 g/dL (6.4-8.2)
[2023-03-12] MEDS ORDERED: methylPREDNISolone (4MG) 4 MG TABLET (DAY#2 ACB) PO ONE (07:30)
[2023-03-12 08:00] VITALS: BP 176/68
[2023-03-12] MEDS: ENSURE ENLIVE 237 ML LIQUID (VANILLA) PO SCH ×2 (08:18→17:41)
[2023-03-12] MEDS: LOSARTAN POTASSIUM 50 MG TABLET PO SCH (08:23)
[2023-03-12] MEDS: ASPIRIN EC 81 MG TABLET.DR PO SCH (08:23)
[2023-03-12] MEDS: FUROSEMIDE 40 MG TABLET PO SCH (08:23)
[2023-03-12] MEDS: hydrALAZINE HCL 50 MG TABLET PO SCH ×3 (08:24→16:51)
[2023-03-12] MEDS: CARVEDILOL 6.25 MG TABLET PO SCH ×2 (08:24→16:52)
[2023-03-12] MEDS: POTASSIUM CHLORIDE 20 MEQ TAB.PRT.SR PO SCH (08:26)
[2023-03-12 12:00] VITALS: BP 120/60
[2023-03-12] MEDS ORDERED: methylPREDNISolone (4MG) 4 MG TABLET (DAY#2,PC LUNCH) PO ONE (12:30)
[2023-03-12 16:00] VITALS: BP 138/72
[2023-03-12] MEDS ORDERED: methylPREDNISolone (4MG) 4 MG TABLET (DAY#2, PC DINNER) PO ONE (17:30)
[2023-03-12 20:00] VITALS: BP 138/58
[2023-03-12] MEDS ORDERED: methylPREDNISolone (4MG) 4 MG TABLET (DAY#2, HS) PO ONE (21:00)
[2023-03-12] MEDS: ATORVASTATIN 40 MG TABLET PO SCH (21:42)
[2023-03-12] MEDS: TRAZODONE 50 MG TABLET PO SCH (21:42)
[2023-03-12] MEDS: ENOXAPARIN SODIUM 40 MG/0.4 ML DISP.SYRIN SQ SCH (21:45)
[2023-03-13] MEDS: ALBUTEROL FS 2.5 MG/3 ML VIAL.NEB NEB SCH ×4 (01:30→20:04)
[2023-03-13] MEDS: IPRATROPIUM NEB FS 0.5 MG/2.5 ML AMPUL.NEB NEB SCH ×4 (01:31→20:03)
[2023-03-13 04:00] VITALS: BP 132/61
[2023-03-13] MEDS: methylPREDNISolone (4MG) 4 MG TABLET (DAY#3,ACB) PO ONE ×2 (09:15→09:18)
[2023-03-13] MEDS: CARVEDILOL 6.25 MG TABLET PO SCH ×2 (09:16→17:35)
[2023-03-13] MEDS: LOSARTAN POTASSIUM 50 MG TABLET PO SCH (09:16)
[2023-03-13] MEDS: hydrALAZINE HCL 50 MG TABLET PO SCH ×3 (09:16→17:33)
[2023-03-13] MEDS: ASPIRIN EC 81 MG TABLET.DR PO SCH (09:17)
[2023-03-13] MEDS: ENSURE ENLIVE 237 ML LIQUID (VANILLA) PO SCH ×2 (09:22→17:35)
[2023-03-13] MEDS ORDERED: methylPREDNISolone (4MG) 4 MG TABLET (DAY#3,PC LUNCH) PO ONE (12:30)
[2023-03-13 13:00] VITALS: BP 120/42
[2023-03-13] MEDS: ACETAMINOPHEN 325 MG TABLET PO PRN (14:55)
[2023-03-13] MEDS ORDERED: methylPREDNISolone (4MG) 4 MG TABLET (DAY#3,PC DINNER) PO ONE (17:30)
[2023-03-13 20:00] VITALS: BP 136/54
[2023-03-13] MEDS: ENOXAPARIN SODIUM 40 MG/0.4 ML DISP.SYRIN SQ SCH (21:29)
[2023-03-13] MEDS: ATORVASTATIN 40 MG TABLET PO SCH ×2 (21:31→21:56)
[2023-03-13] MEDS ORDERED: methylPREDNISolone (4MG) 4 MG TABLET (DAY#3, HS) PO ONE (22:00)
[2023-03-13] MEDS ORDERED: methylPREDNISolone (4MG) 4 MG TABLET ONE (23:01)
[2023-03-13] MEDS: TRAZODONE 50 MG TABLET PO SCH (23:06)
[2023-03-14] MEDS: ALBUTEROL FS 2.5 MG/3 ML VIAL.NEB NEB SCH ×4 (01:15→20:20)
[2023-03-14 04:00] VITALS: BP 102/76
[2023-03-14] MEDS: IPRATROPIUM NEB FS 0.5 MG/2.5 ML AMPUL.NEB NEB SCH ×4 (06:00→20:19)
[2023-03-14] MEDS ORDERED: methylPREDNISolone (4MG) 4 MG TABLET (DAY #4, ACB) PO ONE (07:30)
[2023-03-14 08:00] VITALS: BP 151/72
[2023-03-14] MEDS: ASPIRIN EC 81 MG TABLET.DR PO SCH (08:41)
[2023-03-14] MEDS: hydrALAZINE HCL 50 MG TABLET PO SCH ×3 (08:42→16:20)
[2023-03-14] MEDS: CARVEDILOL 6.25 MG TABLET PO SCH ×2 (08:42→16:22)
[2023-03-14] MEDS: LOSARTAN POTASSIUM 50 MG TABLET PO SCH (08:42)
[2023-03-14] MEDS: ENSURE ENLIVE 237 ML LIQUID (VANILLA) PO SCH ×2 (08:43→16:22)
[2023-03-14] MEDS ORDERED: methylPREDNISolone (4MG) 4 MG TABLET (DAY #4, PC LUNCH) PO ONE (12:30)
[2023-03-14 16:00] VITALS: BP 122/62
[2023-03-14 20:00] VITALS: BP 144/60
[2023-03-14] MEDS: ATORVASTATIN 40 MG TABLET PO SCH (21:43)
[2023-03-14] MEDS: ENOXAPARIN SODIUM 40 MG/0.4 ML DISP.SYRIN SQ SCH (21:43)
[2023-03-14] MEDS ORDERED: methylPREDNISolone (4MG) 4 MG TABLET (DAY#4 HS) PO ONE (22:00)
[2023-03-14] MEDS: TRAZODONE 50 MG TABLET PO SCH (23:05)
[2023-03-15] MEDS: ALBUTEROL FS 2.5 MG/3 ML VIAL.NEB NEB SCH ×4 (01:30→20:26)
[2023-03-15 04:00] VITALS: BP 150/59
[2023-03-15] MEDS ORDERED: methylPREDNISolone (4MG) 4 MG TABLET (DAY#5, ACB) PO ONE (07:30)
[2023-03-15] MEDS: IPRATROPIUM NEB FS 0.5 MG/2.5 ML AMPUL.NEB NEB SCH ×3 (08:28→12:38)
[2023-03-15] MEDS: hydrALAZINE HCL 50 MG TABLET PO SCH ×3 (09:16→17:51)
[2023-03-15] MEDS: ASPIRIN EC 81 MG TABLET.DR PO SCH (09:16)
[2023-03-15] MEDS: CARVEDILOL 6.25 MG TABLET PO SCH ×2 (09:17→17:51)
[2023-03-15] MEDS: LOSARTAN POTASSIUM 50 MG TABLET PO SCH (09:23)
[2023-03-15] MEDS: ENSURE ENLIVE 237 ML LIQUID (VANILLA) PO SCH ×2 (09:35→17:59)
[2023-03-15] MEDS: ACETAMINOPHEN 325 MG TABLET PO PRN (11:29)
[2023-03-15 12:00] VITALS: BP 118/48
[2023-03-15 20:00] VITALS: BP 125/63
[2023-03-15] MEDS: ATORVASTATIN 40 MG TABLET PO SCH (21:19)
[2023-03-15] MEDS: TRAZODONE 50 MG TABLET PO SCH (21:19)
[2023-03-15] MEDS: ENOXAPARIN SODIUM 40 MG/0.4 ML DISP.SYRIN SQ SCH (21:44)
[2023-03-15] MEDS ORDERED: methylPREDNISolone (4MG) 4 MG TABLET (DAY#5,HS) PO ONE (22:00)
[2023-03-16] MEDS: ALBUTEROL FS 2.5 MG/3 ML VIAL.NEB NEB SCH ×4 (01:30→20:28)
[2023-03-16 04:00] VITALS: BP 135/68
[2023-03-16] MEDS: IPRATROPIUM NEB FS 0.5 MG/2.5 ML AMPUL.NEB NEB SCH ×4 (05:40→20:28)
[2023-03-16 07:15] LABS: CALCIUM, SERUM 7.9 mg/dL (8.5-10.1); CARBON DIOXIDE 36 mmol/L (21-32); CHLORIDE 100 mmol/L (98-107); CREATININE 0.5 mg/dL (0.6-1.3); GLUCOSE 87 mg/dL (74-106); POTASSIUM 3.9 mmol/L (3.5-5.1); SODIUM SERUM 137 mmol/L (136-145); UREA NITROGEN, BLOOD 31 mg/dL (7-18)
[2023-03-16] MEDS ORDERED: methylPREDNISolone (4MG) 4 MG TABLET (DAY#6,ACB) PO ONE (07:30)
[2023-03-16] MEDS: ENSURE ENLIVE 237 ML LIQUID (VANILLA) PO SCH ×2 (07:38→16:17)
[2023-03-16] MEDS: CARVEDILOL 6.25 MG TABLET PO SCH ×2 (08:15→16:30)
[2023-03-16] MEDS: LOSARTAN POTASSIUM 50 MG TABLET PO SCH (08:15)
[2023-03-16] MEDS: ASPIRIN EC 81 MG TABLET.DR PO SCH (08:16)
[2023-03-16] MEDS: hydrALAZINE HCL 50 MG TABLET PO SCH ×3 (08:16→16:31)
[2023-03-16 12:00] VITALS: BP 132/72
[2023-03-16 20:00] VITALS: BP 132/48
[2023-03-16] MEDS: ENOXAPARIN SODIUM 40 MG/0.4 ML DISP.SYRIN SQ SCH (21:15)
[2023-03-16] MEDS: ATORVASTATIN 40 MG TABLET PO SCH (22:56)
[2023-03-16] MEDS: TRAZODONE 50 MG TABLET PO SCH (22:56)
[2023-03-17] MEDS: ALBUTEROL FS 2.5 MG/3 ML VIAL.NEB NEB SCH ×4 (01:30→20:27)
[2023-03-17] MEDS: IPRATROPIUM NEB FS 0.5 MG/2.5 ML AMPUL.NEB NEB SCH ×4 (01:30→20:27)
[2023-03-17 04:35] VITALS: BP 119/47
[2023-03-17 08:00] VITALS: BP 127/64
[2023-03-17] MEDS: CARVEDILOL 6.25 MG TABLET PO SCH ×2 (09:15→16:03)
[2023-03-17] MEDS: LOSARTAN POTASSIUM 50 MG TABLET PO SCH (09:16)
[2023-03-17] MEDS: hydrALAZINE HCL 50 MG TABLET PO SCH ×3 (09:16→16:03)
[2023-03-17] MEDS: ASPIRIN EC 81 MG TABLET.DR PO SCH (09:17)
[2023-03-17] MEDS: ENSURE ENLIVE 237 ML LIQUID (VANILLA) PO SCH ×2 (09:20→17:14)
[2023-03-17] MEDS: ACETAMINOPHEN 325 MG TABLET PO PRN (10:45)
[2023-03-17 16:00] VITALS: BP 108/46
[2023-03-17] MEDS: ATORVASTATIN 40 MG TABLET PO SCH (21:24)
[2023-03-17] MEDS: TRAZODONE 50 MG TABLET PO SCH (21:24)
[2023-03-17] MEDS: ENOXAPARIN SODIUM 40 MG/0.4 ML DISP.SYRIN SQ SCH (21:31)
[2023-03-18] VITALS: BP 128/61
[2023-03-18] MEDS: IPRATROPIUM NEB FS 0.5 MG/2.5 ML AMPUL.NEB NEB SCH ×4 (01:30→19:50)
[2023-03-18] MEDS: ALBUTEROL FS 2.5 MG/3 ML VIAL.NEB NEB SCH ×4 (01:30→19:50)
[2023-03-18 08:00] VITALS: BP 144/73
[2023-03-18] MEDS: LOSARTAN POTASSIUM 50 MG TABLET PO SCH (08:31)
[2023-03-18] MEDS: hydrALAZINE HCL 50 MG TABLET PO SCH ×3 (08:32→17:04)
[2023-03-18] MEDS: ENSURE ENLIVE 237 ML LIQUID (VANILLA) PO SCH ×2 (08:32→17:04)
[2023-03-18] MEDS: ASPIRIN EC 81 MG TABLET.DR PO SCH (08:32)
[2023-03-18] MEDS: CARVEDILOL 6.25 MG TABLET PO SCH ×2 (08:32→17:04)
[2023-03-18] MEDS ORDERED: SIMETHICONE 80 MG TAB.CHEW PO PRN (10:30)
[2023-03-18 16:00] VITALS: BP 123/64
[2023-03-18] MEDS: ATORVASTATIN 40 MG TABLET PO SCH (21:16)
[2023-03-18] MEDS: ENOXAPARIN SODIUM 40 MG/0.4 ML DISP.SYRIN SQ SCH (21:16)
[2023-03-18] MEDS: TRAZODONE 50 MG TABLET PO SCH (22:19)
[2023-03-19] VITALS: BP 115/63
[2023-03-19] MEDS: IPRATROPIUM NEB FS 0.5 MG/2.5 ML AMPUL.NEB NEB SCH ×4 (01:30→13:18)
[2023-03-19] MEDS: ALBUTEROL FS 2.5 MG/3 ML VIAL.NEB NEB SCH ×4 (01:30→13:18)
[2023-03-19 08:00] VITALS: BP 132/68
[2023-03-19] MEDS: ASPIRIN EC 81 MG TABLET.DR PO SCH (08:14)
[2023-03-19] MEDS: hydrALAZINE HCL 50 MG TABLET PO SCH ×2 (08:18→13:23)
[2023-03-19] MEDS: CARVEDILOL 6.25 MG TABLET PO SCH (08:18)
[2023-03-19] MEDS: LOSARTAN POTASSIUM 50 MG TABLET PO SCH (08:18)
[2023-03-19] MEDS: ENSURE ENLIVE 237 ML LIQUID (VANILLA) PO SCH (08:51)
[2023-03-19 13:23] VITALS: BP 117/41
== END 2023-03-19 16:44 | disposition home or self-care (01) | DRG 291 ==
LOC: ER 22:07 → TELE1 03-11 01:18 → MEDSG1 03-11 10:31
PROVIDERS: ADMIT Nurse Practitioner Acute Care; ATTEND Nurse Practitioner Acute Care
DX: I11.0 Hypertensive heart disease with heart failure (principal); I50.23 Acute on chronic systolic (congestive) heart failure; J44.1 Chronic obstructive pulmonary disease with (acute) exacerbation; E44.0 Moderate protein-calorie malnutrition; E87.1 Hypo-osmolality and hyponatremia; Z20.822 Contact with and (suspected) exposure to COVID-19; Z79.51 Long term (current) use of inhaled steroids; Z79.82 Long term (current) use of aspirin; Z79.899 Other long term (current) drug therapy; E88.09 Other disorders of plasma-protein metabolism, not elsewhere classified; Z98.51 Tubal ligation status; I89.0 Lymphedema, not elsewhere classified; E78.5 Hyperlipidemia, unspecified; Z87.891 Personal history of nicotine dependence; I08.3 Combined rheumatic disorders of mitral, aortic and tricuspid valves; R79.89 Other specified abnormal findings of blood chemistry
CPT/HCPCS: 36415; 71045-TC; 80048-TC; 80053-TC; 80076-TC; 83605-TC; 83735-TC; 83880; 84100-TC; 84484-TC; 85025-TC; 87040-TC; 87081-TC; 94799-TC; 97110-TC; 97112-TC; 97116-TC; 97530-TC; C9803; G0378; J1650; J1940; J7509

== ENCOUNTER 2023-03-19 20:30 | Inpatient (IN) | payer OTHER ==
[~2023-03-19] VITALS: Ht 167.6 cm; Wt 41.7 kg
--- NOTE | 2023-03-19 20:49 | NUR ---
EJ ROWLEY CELL [phone] [place] [phone]
--- NOTE | 2023-03-19 21:00 | NUR ---
Marilia AOx4, able to express her concerns. Marilia states she has been feeling short of breath. VSS on 4 lt. of o2 via NC. Discussed plan of care, patient verbalized agreement, All safety precautions taken.
--- NOTE | 2023-03-19 21:11 | NUR ---
20G STARTED ON R HAND. COLLECTED BLOOD AND SENT TO LAB
--- NOTE | 2023-03-19 21:15 | NUR ---
X-RAY AT BEDSIDE
[2023-03-19] MEDS ORDERED: FUROSEMIDE 40 MG/4 ML VIAL IV ONE (21:30)
[2023-03-19 21:31] LABS: BASOPHILS % (AUTO) 0.3 % (0.0-2.0); HEMATOCRIT 39 % (33-45); HEMOGLOBIN 12.8 g/dL (11.5-14.8); LYMPHOCYTES # (AUTO) 0.8 K/uL (0.8-4.8); LYMPHOCYTES % (AUTO) 6.2 % (20.0-44.0); MEAN CORPUSCULAR HGB CONC 33 g/dl (31.0-36.0); MEAN CORPUSCULAR VOLUME 96 fL (82-100); MONOCYTES # (AUTO) 0.7 K/uL (0.1-1.30); MONOCYTES % (AUTO) 5.3 % (2.0-12.0); NEUTROPHILS # (AUTO) 11.4 K/uL (1.8-8.9); NEUTROPHILS % (AUTO) 87.2 % (43.0-81.0); PLATELET COUNT (AUTO) 220 K/uL (150-450); RED BLOOD CELL COUNT(AUTO) 4.05 MIL/uL (4.0-5.2)
[2023-03-19 21:46] LABS: CALCIUM, SERUM 8.8 mg/dL (8.5-10.1); CARBON DIOXIDE 35 mmol/L (21-32); CHLORIDE 99 mmol/L (98-107); CREATININE 0.5 mg/dL (0.6-1.3); GLUCOSE 152 mg/dL (74-106); POTASSIUM 4.1 mmol/L (3.5-5.1); SODIUM SERUM 139 mmol/L (136-145); UREA NITROGEN, BLOOD 29 mg/dL (7-18)
[2023-03-19 21:50] LABS: ALBUMIN 2.7 g/dL (3.4-5.0); BILIRUBIN,DIRECT 0.1 mg/dL (0.0-0.2); BILIRUBIN,TOTAL 0.5 mg/dL (0.2-1.0); TOTAL PROTEIN, SERUM 5.7 g/dL (6.4-8.2)
--- NOTE | 2023-03-19 21:50 | NUR ---
Urine collected, sent to lab
--- NOTE | 2023-03-19 22:49 | NUR ---
COVID Swab collected, sent to lab
[2023-03-19] MEDS ORDERED: MAG HYDROX/AL HYDROX/SIMETH 30 ML UDC PO PRN (23:00)
[2023-03-19] MEDS ORDERED: ACETAMINOPHEN 325 MG TABLET PO PRN (23:00)
[2023-03-19] MEDS ORDERED: ONDANSETRON HCL/PF 4 MG/2 ML VIAL IVP PRN (23:00)
[2023-03-19] MEDS ORDERED: ZOLPIDEM TARTRATE 5 MG TABLET PO PRN (23:00)
[2023-03-19] MEDS ORDERED: Z GUARD REMEDY 4 OZ OINT TP PRN (23:00)
[2023-03-19] MEDS ORDERED: HYDROCODONE/APAP 5/325MG TABLET PO PRN (23:00)
[2023-03-19] MEDS ORDERED: hydrALAZINE HCL IV 20 MG VIAL IV PRN (23:00)
[2023-03-19] MEDS ORDERED: TRAZODONE 50 MG TABLET PO PRN (23:00)
[2023-03-19] MEDS ORDERED: MAGNESIUM HYDROXIDE 30 ML UDC PO PRN (23:00)
--- NOTE | 2023-03-20 00:23 | NUR ---
Report given to Chase ROBBINS, edis calzada for transfer [address]
[2023-03-20] MEDS ORDERED: ENOXAPARIN SODIUM 40 MG/0.4 ML DISP.SYRIN SQ SCH (00:49)
[2023-03-20 00:55] VITALS: BP 176/71
[2023-03-20 01:30] VITALS: BP 167/70
[2023-03-20] MEDS ORDERED: ALBUTEROL FS 2.5 MG/3 ML VIAL.NEB NEB SCH (01:30)
[2023-03-20] MEDS ORDERED: IPRATROPIUM NEB FS 0.5 MG/2.5 ML AMPUL.NEB NEB SCH (01:30)
--- NOTE | 2023-03-20 01:50 | NUR ---
RN NOTES-PATIENT GIVEN DESYREL PATIENT GIVEN DESYREL PRN FOR SLEEP PER PATIENT'S REQUEST. BP LEVEL IS 167/70 HR 85. NO SIGNS OF DISTRESS. NO PAIN VERBALIZED AT THIS TIME. WILL CONTINUE TO MONITOR THE PATIENT.
--- NOTE | 2023-03-20 02:00 | NUR ---
SPECIAL EVENTS PLANNERPAINTER SKI EDGE NOTES REPORT RECEIVD FROM DANNY. PATIENT TRANSFERRED FROM ER VIA GURBEY, WITH NO SIGNS OF DISTRESS. ORIENTED PATIENT TO ROOM SET UP AND EDUCATED PATIENT ON THE USE OF CALL LIGHT. VS TAKEN AND RECORDED. SKIN ASSESSMENT DONE AND PICTURES TAKEN. ALL BELONGING CHECKED AND BELONGING LIST SIGNED. WILL CONTINUE TO MONITOR AND REASSESS FOR ANY CHANGES AND WILL CARRY OUT ANY ONGOING ACTIVE MD ORDERS. Addendum: 03/20/23 at 0617 by JESSI BULL RN WRONG TIME 00:55
[2023-03-20 02:06] LABS: BILIRUBIN,URINE NEGATIVE (NEGATIVE); COLOR,URINE YELLOW (YELLOW); LEUKOCYTE ESTERASE ,URINE NEGATIVE (NEGATIVE); NITRITE, URINE NEGATIVE (NEGATIVE); PROTEIN,URINE 1+ mg/dl (NEGATIVE); UGLUCOSE NEGATIVE (NEGATIVE)
--- NOTE | 2023-03-20 02:30 | NUR ---
RN NOTES-HYDRALAZINE IV GIVEN PATIENT'S BP LEVEL 171/71 HR 83, HYDRALAZINE IV GIVEN PRN. WILL CONTINUE TO MONITOR THE PATIENT.
[2023-03-20 02:49] LABS: BACTERIA,URINE Rare /HPF (None Seen); SQUAMOUS EPITHELIAL CELL,UR Rare /HPF (None Seen); YEAST,URINE Few /HPF (None Seen)
[2023-03-20 03:00] VITALS: BP 160/70
--- NOTE | 2023-03-20 03:00 | NUR ---
RN NOTES PATIENT'S BP LEVEL 160/70. NO SIGNS OF DISTRESS. NO PAIN VERBALIZED. WILL CONTINUE TO MONITOR THE PATIENT.
[2023-03-20 04:00] VITALS: BP 150/80
[2023-03-20 06:45] LABS: BASOPHILS # (AUTO) 0.1 K/uL (0.0-0.2); BASOPHILS % (AUTO) 0.7 % (0.0-2.0); EOSINOPHILS % (AUTO) 1.8 % (0.0-6.0); HEMATOCRIT 35 % (33-45); HEMOGLOBIN 11.6 g/dL (11.5-14.8); LYMPHOCYTES # (AUTO) 1.2 K/uL (0.8-4.8); LYMPHOCYTES % (AUTO) 13.4 % (20.0-44.0); MEAN CORPUSCULAR HGB CONC 34 g/dl (31.0-36.0); MEAN CORPUSCULAR VOLUME 96 fL (82-100); MONOCYTES # (AUTO) 0.7 K/uL (0.1-1.30); MONOCYTES % (AUTO) 7.6 % (2.0-12.0); NEUTROPHILS # (AUTO) 6.7 K/uL (1.8-8.9); NEUTROPHILS % (AUTO) 76.5 % (43.0-81.0); PLATELET COUNT (AUTO) 190 K/uL (150-450); RED BLOOD CELL COUNT(AUTO) 3.61 MIL/uL (4.0-5.2); WHITE BLOOD COUNT (AUTO) 8.8 K/uL (4.3-11.0)
[2023-03-20 06:58] LABS: CALCIUM, SERUM 7.6 mg/dL (8.5-10.1); CARBON DIOXIDE 38 mmol/L (21-32); CHLORIDE 99 mmol/L (98-107); CREATININE 0.4 mg/dL (0.6-1.3); GLUCOSE 85 mg/dL (74-106); MAGNESIUM 2.1 mg/dL (1.8-2.4); PHOSPHORUS 4.1 mg/dL (2.5-4.9); POTASSIUM 3.4 mmol/L (3.5-5.1); SODIUM SERUM 140 mmol/L (136-145); UREA NITROGEN, BLOOD 23 mg/dL (7-18)
--- NOTE | 2023-03-20 07:30 | NUR ---
CITY COMPTROLLER OPENING NOTES RECEIVED PATIENT SLEEPING IN BED. AWAKENS TO VERBAL STIMULI. A/O X 4. NO SW/S OF PAIN NOTED AT THIS TIME. ON 2L OXYGEN VIA NC SATURATING WELL, BREATHING EVEN AND UNLABORED, NO SOB OR DISTRESS NOTED AT THIS TIME. IV ACCESS ON RFA #22G, INTACT AND PATENT, SALINE LOCK. PATIENT ON CAR HOPPER WITH CURRENT READING OF SR @ 70, NO CARDIAC DISTRESS NOTED. SAFETY MEASURES MAINTAINED. BED LOCKED IN LOWEST POSITION, SIDE RAILS UP X2, CALL LIGHT WITHIN REACH. ALL NEEDS ATTENDED. WILL CONTINUE TO MONITOR.
--- NOTE | 2023-03-20 07:51 | NUR ---
DIRECTOR OF EVENT MARKETING CLOSING NOTES PATIENT SLEEPING IN BED. AWAKENS TO VERBAL STIMULI. A/O X 4. NO SW/S OF PAIN NOTED AT THIS TIME. ON 2L OXYGEN VIA NC, BREATHING EVEN AND UNLABORED, NO SOB OR DISTRESS NOTED AT THIS TIME. IV ACCESS ON RFA #22G, INTACT AND PATENT, SALINE LOCK. PATIENT ON COIL WINDER STRAP WITH CURRENT READING OF SR @ 70, NO CARDIAC DISTRESS NOTED. SAFETY MEASURES MAINTAINED. ALL NEEDS ATTENDED. WILL ENDORSE TO THE NEXT SHIFT.
[2023-03-20 08:00] VITALS: BP 143/61
[2023-03-20] MEDS: hydrALAZINE HCL 25 MG TABLET PO SCH ×2 (08:24→13:00)
--- NOTE | 2023-03-20 08:48 | NUR ---
WOUND CARE CONSULT: PT PRESENTS WITH CACHEXIA, SACRAL DEEP TISSUE INJURY, AREAS OF SKIN DISCOLORATION TO UPPER EXTREMITIES AND VERY LONG TOENAILS WITH DISCOLORATION AND EDEMA TO FEET AND ANKLES, ALL PRESENT ON ADMISSION. RECOMMENDATIONS MADE FOR SKIN PROTECTION. DISCUSSED WITH NURSING STAFF. PT IS INCONTINENT. PUREWICK APPLIED AFTER EXPLANATION WITH ASSISTANCE OF NURSING STAFF. DPM CONSULT CALLED TO DR BELCZYK. SORIANO IN AGREEMENT WITH PLAN OF CARE. Addendum: 03/20/23 at 0850 by EVERARDO PARISH WNDNU Amended: Links added.
[2023-03-20] MEDS ORDERED: LOSARTAN POTASSIUM 25 MG TABLET PO SCH (09:00)
[2023-03-20] MEDS ORDERED: PANTOPRAZOLE 40 MG VIAL IV SCH (09:00)
[2023-03-20] MEDS ORDERED: CARVEDILOL 6.25 MG TABLET PO SCH (09:00)
[2023-03-20] MEDS ORDERED: FUROSEMIDE 40 MG/4 ML VIAL IV SCH (09:00)
[2023-03-20] MEDS ORDERED: ASPIRIN 81 MG TAB.CHEW PO SCH (09:00)
[2023-03-20] MEDS ORDERED: POTASSIUM CHLORIDE 20 MEQ TAB.PRT.SR PO SCH (11:00)
--- NOTE | 2023-03-20 12:51 | NUR ---
RN NOTES CALLED ANAIS SANCHEZ AND GAVE REPORT TO SUSAN ROBBINS. PT WILL BE PAULA LEBRON AT 1400.
[2023-03-20 13:00] VITALS: BP 103/53
[2023-03-20] MEDS ORDERED: methylPREDNISolone SOD SUCC 125 MG/2ML VIAL IV SCH (13:30)
--- NOTE | 2023-03-20 14:09 | NUR ---
ELECTRIC CELL TENDER NOTES PT DISCHARGED STABLE AT 1409. AOX4, VS TAKEN AND WNL. IV ACCESS REMOVED, PRESSURE DRESSING APPLIED. ARM BAND REMOVED, TELE MONITOR REMOVED. ALL BELONGINGS CHECKED AND RECONCILED. HEALTH TEACHINGS AND DISCHARGE INSTRUCTIONS GIVEN. INSTRUCTED PT TO CALL 911 OR RETURN TO ER INCASE OF EMERGENCY. PT LEFT VIA GURNEY ACCOMPANIED BY TWO SUPERVISOR SPEECH. CHARGE NURSE AWARE.
[2023-03-20] MEDS ORDERED: PROSOURCE / PROSTAT (PYXIS) 30 ML UDC GT SCH (17:00)
[2023-03-20] MEDS ORDERED: ENSURE ENLIVE 237 ML LIQUID (VANILLA) PO SCH (17:00)
[2023-03-20] MEDS ORDERED: ATORVASTATIN 40 MG TABLET PO SCH (22:00)
== END 2023-03-20 14:10 | DRG 291 ==
LOC: ER 20:39 → TELE 03-20 00:32
PROVIDERS: ADMIT Nurse Practitioner Acute Care; ATTEND Nurse Practitioner Acute Care
DX: I11.0 Hypertensive heart disease with heart failure (principal); I50.23 Acute on chronic systolic (congestive) heart failure; J96.20 Acute and chronic respiratory failure, unspecified whether with hypoxia or hypercapnia; J44.1 Chronic obstructive pulmonary disease with (acute) exacerbation; E87.1 Hypo-osmolality and hyponatremia; E44.0 Moderate protein-calorie malnutrition; J98.11 Atelectasis; Z79.51 Long term (current) use of inhaled steroids; Z79.82 Long term (current) use of aspirin; Z79.899 Other long term (current) drug therapy; E78.5 Hyperlipidemia, unspecified; I89.0 Lymphedema, not elsewhere classified; R79.89 Other specified abnormal findings of blood chemistry; F17.210 Nicotine dependence, cigarettes, uncomplicated; B35.1 Tinea unguium; L60.2 Onychogryphosis; Z74.09 Other reduced mobility; L60.8 Other nail disorders; Z91.199 Patient's noncompliance with other medical treatment and regimen due to unspecified reason
CPT/HCPCS: 36415; 71045-TC; 80048-TC; 80076-TC; 81001; 83605-TC; 83735-TC; 83880; 84100-TC; 84484-TC; 85025-TC; 87040-TC; 87081-TC; 87086-TC; 97112-TC; 97116-TC; 97530-TC; C9113; C9803; G0378; J0360; J1650; J1940; J2930

== ENCOUNTER 2023-04-04 21:27 | Inpatient (IN) | payer OTHER ==
[~2023-04-04] VITALS: Ht 158.8 cm; Wt 38.1 kg
--- NOTE | 2023-04-04 21:40 | NUR ---
[id number] FROM [facility], CC OF SOB SAT95% ON 2LPM AT HOME. CAME WITH CC OF HBP 217SBP FIBERGLASS LAMINATOR. PATIENT MAINTAINED OXYGEN AT HOME, HX OF CHF AND COPD IN AE. BP RECHECKED 166/95%. PATIENT MAINTAINED AT 2LPM NC AT HOME. PLACED COMFORTABLY IN BED. VITALS CHECKED. MADE AWARE
--- NOTE | 2023-04-04 21:41 | NUR ---
EKG DONE AT BEDSIDE
--- NOTE | 2023-04-04 22:01 | NUR ---
IV BENITO G20 INSERTED ON RIGHT AC. BLOOD DRAWN AND SENT TO LAB
[2023-04-04 22:08] LABS: BASOPHILS % (AUTO) 0.4 % (0.0-2.0); EOSINOPHILS % (AUTO) 14.8 % (0.0-6.0); HEMATOCRIT 43 % (33-45); HEMOGLOBIN 13.8 g/dL (11.5-14.8); LYMPHOCYTES # (AUTO) 1.1 K/uL (0.8-4.8); LYMPHOCYTES % (AUTO) 12.2 % (20.0-44.0); MEAN CORPUSCULAR HGB CONC 32 g/dl (31.0-36.0); MEAN CORPUSCULAR VOLUME 100 fL (82-100); MONOCYTES # (AUTO) 0.9 K/uL (0.1-1.30); MONOCYTES % (AUTO) 10.5 % (2.0-12.0); NEUTROPHILS # (AUTO) 5.6 K/uL (1.8-8.9); NEUTROPHILS % (AUTO) 62.1 % (43.0-81.0); PLATELET COUNT (AUTO) 248 K/uL (150-450); RED BLOOD CELL COUNT(AUTO) 4.29 MIL/uL (4.0-5.2)
--- NOTE | 2023-04-04 22:10 | NUR ---
XR AT BEDSIDE
[2023-04-04 22:24] LABS: CALCIUM, SERUM 9.5 mg/dL (8.5-10.1); CARBON DIOXIDE 36 mmol/L (21-32); CHLORIDE 100 mmol/L (98-107); CREATININE 0.7 mg/dL (0.6-1.3); GLUCOSE 131 mg/dL (74-106); POTASSIUM 4.7 mmol/L (3.5-5.1); SODIUM SERUM 137 mmol/L (136-145); UREA NITROGEN, BLOOD 18 mg/dL (7-18)
[2023-04-04 22:37] LABS: ALANINE AMINOTRANSFERASE 48 U/L (12-78); ALBUMIN 3.6 g/dL (3.4-5.0); ALKALINE PHOSPHATASE 91 U/L (46-116); ASPARTATE AMINOTRANSFERASE 39 U/L (15-37); BILIRUBIN,DIRECT 0.1 mg/dL (0.0-0.2); TOTAL PROTEIN, SERUM 7.3 g/dL (6.4-8.2)
--- NOTE | 2023-04-04 23:20 | NUR ---
PT GOING TO 109
[2023-04-04] MEDS ORDERED: IPRATROPIUM NEB FS 0.5 MG/2.5 ML AMPUL.NEB NEB ONE (23:30)
[2023-04-04] MEDS ORDERED: ALBUTEROL FS 2.5 MG/3 ML VIAL.NEB NEB ONE (23:30)
--- NOTE | 2023-04-04 23:36 | NUR ---
CALLED RT DEPT FOR PT'S NEB TREATMENT
[2023-04-04] MEDS ORDERED: ALBUTEROL FS 2.5 MG/3 ML VIAL.NEB ONE (23:40)
[2023-04-04] MEDS ORDERED: IPRATROPIUM NEB FS 0.5 MG/2.5 ML AMPUL.NEB ONE (23:41)
--- NOTE | 2023-04-05 | NUR ---
MRSA SWAB COLLECTED AND SENT TO LAB. PATIENT'S BELONGINGS LIST DONE.
--- NOTE | 2023-04-05 00:02 | NUR ---
REPORT GIVEN TO ITZEL LOGAN.
[2023-04-05 00:14] LABS: BILIRUBIN,TOTAL 0.5 mg/dL (0.2-1.0)
--- NOTE | 2023-04-05 00:29 | NUR ---
TRANSFERRED TO ROOM VIA STRETCHER WITH ONGOING OXYGEN INHALATION AT 4LPM
--- NOTE | 2023-04-05 00:29 | NUR ---
PT ACCOMPANIED BY RN
[2023-04-05 00:30] VITALS: BP 130/95
[2023-04-05] MEDS ORDERED: ALBUTEROL FS 2.5 MG/3 ML VIAL.NEB NEB PRN (00:30)
[2023-04-05] MEDS ORDERED: IPRATROPIUM NEB FS 0.5 MG/2.5 ML AMPUL.NEB NEB PRN (00:30)
[2023-04-05] MEDS ORDERED: ONDANSETRON HCL/PF 4 MG/2 ML VIAL IVP PRN (00:30)
[2023-04-05] MEDS ORDERED: HYDROCODONE/APAP 5/325MG TABLET PO PRN (00:30)
[2023-04-05] MEDS ORDERED: ZOLPIDEM TARTRATE 5 MG TABLET PO PRN (00:30)
[2023-04-05] MEDS ORDERED: MORPHINE SULFATE INJ 2 MG/ML DISP.SYRIN IV PRN (00:30)
[2023-04-05] MEDS ORDERED: MAGNESIUM HYDROXIDE 30 ML UDC PO PRN (00:30)
[2023-04-05] MEDS ORDERED: ACETAMINOPHEN 325 MG TABLET PO PRN (00:30)
[2023-04-05] MEDS ORDERED: MAG HYDROX/AL HYDROX/SIMETH 30 ML UDC PO PRN (00:30)
--- NOTE | 2023-04-05 00:45 | NUR ---
MS RN ADMITTING NOTE PATIENT WAS TRANSFERRED FROM ER TO 109 AT 0030H, PATIENT IS A/O X 4, ABLE TO MAKE NEEDS KNOWN; STABLE ON 2LPM OXYGEN VIA NASAL CANNULA SATURATING 97-98%; NO S/S OF DISTRESS NOTED; WITH IV ACCESS AT [facility] G#20 SALINE LOCK; ORIENTED TO STAFF AND ROOM; SKIN ASSESSMENT WAS DONE AND NOTED SACRAL DTI, PHOTOGRAPHED AND INSERTED INTO CHART; PATIENT'S BELONGINGS ACCOUNTED FOR, PATIENT BROUGHT IN A RED BAG BUT PATIENT REFUSED TO OPEN IT, CREDIT RESOLUTION REPRESENTATIVE AT BEDSIDE AT THAT TIME; SAFETY MEASURES IMPLEMENTED, BED LOCKED IN LOW POSITION, HEAD OF BED ELEVATED, SIDE RAILS UP X 2, CALL LIGHT AND TABLE WITHIN REACH; WILL CONTINUE TO MONITOR THROUGHOUT SHIFT
[2023-04-05] MEDS ORDERED: methylPREDNISolone SOD SUCC 125 MG/2ML VIAL IV ONE (01:00)
[2023-04-05] MEDS ORDERED: methylPREDNISolone SOD SUCC 125 MG/2ML VIAL ONE (01:08)
--- NOTE | 2023-04-05 01:30 | NUR ---
MS RN NOTE PATIENT VERBALIZED HER NEED FOR SLEEPING MEDICATION. ADMINISTERED AMBIEN PRN ORDERED; PATIENT TOLERATED WELL, WILL CONTINUE TO MONITOR
[2023-04-05 04:00] VITALS: BP 140/53
[2023-04-05] MEDS: methylPREDNISolone SOD SUCC 40 MG/ML VIAL IV SCH ×3 (05:09→21:53)
--- NOTE | 2023-04-05 06:52 | NUR ---
MS RN CLOSING NOTE PATIENT ASLEEP IN BED, A/O X 4, ABLE TO MAKE NEEDS KNOWN; STABLE ON 2LPM OXYGEN VIA NASAL CANNULA SATURATING 98%; NO S/S OF DISTRESS NOTED; WITH IV ACCESS AT RAC G#20 SALINE LOCK; ADMINISTERED MEDICATIONS PRESCRIBED; PATIENT'S NEEDS ATTENDED; NO COMPLAINTS OF PAIN AND DISCOMFORT AT THIS TIME; SAFETY MEASURES IMPLEMENTED, BED LOCKED IN LOW POSITION, HEAD OF BED ELEVATED, SIDE RAILS UP X 2, CALL LIGHT AND TABLE WITHIN REACH; WILL ENDORSE TO AM NURSE FOR RICO.
--- NOTE | 2023-04-05 07:45 | NUR ---
RN OPENING NOTES: RECEIVED PATIENT ASLEEP, EASILY ROUSED, A/O X 4, ABLE TO MAKE NEEDS KNOWN. STABLE ON 2LPM OXYGEN VIA NASAL CANNULA; NO S/S OF SOB AND ACUTE DISTRESS NOTED. DENIES PAIN AT THIS TIME. IV ACCESS AT [facility] G#20 SALINE LOCK, ALL SAFETY MEASURES IMPLEMENTED, BED LOCKED IN LOW POSITION, HEAD OF BED ELEVATED, SIDE RAILS UP X 2, CALL LIGHT AND TABLE WITHIN REACH; WILL CONT WITH PLAN OF CARE DURING SHIFT.
[2023-04-05] MEDS: POTASSIUM CHLORIDE 20 MEQ TAB.PRT.SR PO SCH (09:00)
[2023-04-05] MEDS: hydrALAZINE HCL 50 MG TABLET PO SCH ×3 (09:02→16:10)
[2023-04-05] MEDS: ASPIRIN EC 81 MG TABLET.DR PO SCH (09:03)
[2023-04-05] MEDS: LOSARTAN POTASSIUM 50 MG TABLET PO SCH (09:03)
[2023-04-05] MEDS: FUROSEMIDE 40 MG TABLET PO SCH (09:03)
[2023-04-05] MEDS: PANTOPRAZOLE 40 MG TABLET.DR PO SCH (09:03)
[2023-04-05] MEDS: ENSURE ENLIVE 237 ML LIQUID (VANILLA) PO SCH ×2 (09:07→17:05)
--- NOTE | 2023-04-05 09:42 | NUR ---
RN NOTES: HOLD MED RN SENT MSG TO , PT HAS KDUR 20 MEQ FOR AM, K= 4.7, ASKED MD IF IT'S OK TO HOLD KDUR, PER MD OK TO HOLD AM DOSE, RETURNED MED PER UNIT PROTOCOL
[2023-04-05] MEDS: IPRATROPIUM NEB FS 0.5 MG/2.5 ML AMPUL.NEB NEB SCH ×3 (10:00→20:32)
[2023-04-05] MEDS: ALBUTEROL FS 2.5 MG/3 ML VIAL.NEB NEB SCH ×3 (10:00→20:32)
[2023-04-05 10:37] LABS: ABG BASE EXCESS 6.3 mmol/L; ABG PCO2 39.5 mmHg (35.0-45.0); ABG PH 7.498 (7.350-7.450); ABG PO2 69.5 mmHg (75.0-100.0); COHb 0.6 % (0.5-1.5); MetHb 0.4 % (0.0-1.5); O2Hb 93.2 % (94.0-97.0); SITE, ABG Left Brachial; VENT MODE, BG 2L NC
[2023-04-05] MEDS: LEVOFLOXACIN (250MG) 250 MG TABLET PO SCH (11:43)
[2023-04-05] MEDS: ENOXAPARIN SODIUM 40 MG/0.4 ML DISP.SYRIN SQ SCH (11:45)
[2023-04-05 12:00] VITALS: BP 135/60
--- NOTE | 2023-04-05 15:30 | NUR ---
RN NOTES: PT WISHES TO REMOVE IV ACCESS @ R AC # 18, STATES "IT HURTS",. RN FLUSHED IV ACCESS, LEAKING, DC'D IV, 2 ATTEMPTS BY RN TO RESTART UNSUCCESSFUL BUT DISABILITIES SERVICES OFFICER WAS ABLE TO REINSERT AT R FA, FLUSHING WELL, INTACT AND PATENT.
[2023-04-05] MEDS ORDERED: Z GUARD REMEDY 4 OZ OINT TP STA (15:48)
[2023-04-05 16:00] VITALS: BP 139/63
--- NOTE | 2023-04-05 18:28 | NUR ---
MS RN CLOSING NOTES: PATIENT ASLEEP, EASILY ROUSED, A/O X 4, ABLE TO MAKE NEEDS KNOWN. STABLE ON 2LPM OXYGEN VIA NASAL CANNULA; NO S/S OF SOB AND ACUTE DISTRESS NOTED. DENIES PAIN AT THIS TIME. IV ACCESS AT R FA G#22 SALINE LOCK. ALL NEEDS MET, KEPT CLEAN , DRY AND COMFORTABLE. ALL SAFETY MEASURES IMPLEMENTED, BED LOCKED IN LOW POSITION, HEAD OF BED ELEVATED, SIDE RAILS UP X 2, CALL LIGHT AND TABLE WITHIN REACH; WILL ENDORSE TO PM SHIFT.
--- NOTE | 2023-04-05 19:00 | NUR ---
FLOWER MACHINE OPERATOR opening note Received pt resting in bed, awake, A&Ox4, able to make needs known, breathing even and unlabored, on o2 via NC, 0 c/o pain, skin warm and dry to touch, RFA 22G C/D/I, flushing well, all safety measures in place, call light with in reach, will continue to monitor
[2023-04-05 20:00] VITALS: BP 153/82
[2023-04-05] MEDS: ATORVASTATIN 40 MG TABLET PO SCH (21:52)
[2023-04-05] MEDS: Z GUARD REMEDY 4 OZ OINT TP SCH (21:54)
--- NOTE | 2023-04-05 23:30 | NUR ---
Pt requesting sleeping meds, per Placido Morrell ERADICATOR no more hypnotics as per JOSH RedO at this time
[2023-04-06] MEDS: IPRATROPIUM NEB FS 0.5 MG/2.5 ML AMPUL.NEB NEB SCH ×5 (01:30→20:17)
[2023-04-06] MEDS: ALBUTEROL FS 2.5 MG/3 ML VIAL.NEB NEB SCH ×5 (01:30→20:17)
[2023-04-06 04:00] VITALS: BP 109/55
[2023-04-06] MEDS: methylPREDNISolone SOD SUCC 40 MG/ML VIAL IV SCH ×3 (04:00→21:29)
[2023-04-06 06:18] LABS: BASOPHILS % (AUTO) 0.1 % (0.0-2.0); HEMATOCRIT 37 % (33-45); HEMOGLOBIN 12.3 g/dL (11.5-14.8); LYMPHOCYTES # (AUTO) 0.7 K/uL (0.8-4.8); LYMPHOCYTES % (AUTO) 6.9 % (20.0-44.0); MEAN CORPUSCULAR HGB CONC 33 g/dl (31.0-36.0); MEAN CORPUSCULAR VOLUME 97 fL (82-100); MONOCYTES # (AUTO) 0.4 K/uL (0.1-1.30); MONOCYTES % (AUTO) 3.9 % (2.0-12.0); NEUTROPHILS # (AUTO) 8.9 K/uL (1.8-8.9); NEUTROPHILS % (AUTO) 89.1 % (43.0-81.0); PLATELET COUNT (AUTO) 225 K/uL (150-450); RED BLOOD CELL COUNT(AUTO) 3.88 MIL/uL (4.0-5.2)
--- NOTE | 2023-04-06 06:49 | NUR ---
LINE RUNNER closing note Pt resting in bed, awake, A&Ox4, able to make needs known, breathing even and unlabored, on o2 via NC, 0 c/o pain, skin warm and dry to touch, RFA 22G C/D/I, flushing well, all due meds given per MD orders, tolerated well, all basic needs met and anticipated, all safety measures in place, call light with in reach, will continue to monitor
[2023-04-06 07:08] LABS: CALCIUM, SERUM 9.3 mg/dL (8.5-10.1); CREATININE 0.7 mg/dL (0.6-1.3); PHOSPHORUS 3.9 mg/dL (2.5-4.9)
--- NOTE | 2023-04-06 07:15 | NUR ---
SPOOL WORKER OPENING NOTES Received pt awake in bed AOX4. No complaints of pain or discomfort at this time. Pt is on NC 2L tolerating it well. IV access on RFA 22G. HOB elevated to pts comfort. Siderails up at al times x4. Call light within reach. Will continue to monitor.
[2023-04-06 08:00] VITALS: BP 152/71
[2023-04-06] MEDS: PANTOPRAZOLE 40 MG TABLET.DR PO SCH (08:36)
[2023-04-06] MEDS: FUROSEMIDE 40 MG TABLET PO SCH (08:36)
[2023-04-06] MEDS: ASPIRIN EC 81 MG TABLET.DR PO SCH (08:36)
[2023-04-06] MEDS: LOSARTAN POTASSIUM 50 MG TABLET PO SCH (08:36)
[2023-04-06] MEDS: hydrALAZINE HCL 50 MG TABLET PO SCH ×3 (08:36→16:03)
[2023-04-06] MEDS: ENSURE ENLIVE 237 ML LIQUID (VANILLA) PO SCH ×4 (08:37→17:10)
[2023-04-06] MEDS: Z GUARD REMEDY 4 OZ OINT TP SCH ×2 (09:31→21:18)
[2023-04-06] MEDS: LEVOFLOXACIN (250MG) 250 MG TABLET PO SCH (09:31)
[2023-04-06] MEDS: ENOXAPARIN SODIUM 40 MG/0.4 ML DISP.SYRIN SQ SCH (09:34)
[2023-04-06] MEDS: POTASSIUM CHLORIDE 20 MEQ TAB.PRT.SR PO SCH (09:57)
--- NOTE | 2023-04-06 11:20 | NUR ---
WOUND CARE CNSULT: PT PRESETS WITH CACHEXIA, VERY BONY SACRAL AREA AND PURPLE INTACT AREA OF SKIN (DEEP TISSUE INJURY TO LEFT LOWER BUTTOCK), PRESENT ON ADMISSION. RECOMMENDATIONS MADE FOR SKIN PROTECTION. PT IS INCONTINENT AND INSISTS ON WEARING A DIAPER, DESPITE EXPLAINING RISK OF MORE SKIN BREAKDOWN WITH DIAPER. PT STATES CANNOT TOLERATE PURE WICK. DISCUSSED SKIN PROTECTION WITH NURSING STAFF. MD IN AGREEMENT WITH PLAN OF CARE.
--- NOTE | 2023-04-06 15:09 | NUR ---
SW consult requested for possible homelessness. Patient brought to the hospital by her boyfriend due to CHF. Patient is alert and oriented x4. Both patient and her boyfriend Kris were pleasant and cooperative with the junior technical writer while conducting an assessment. Patient did not require constant redirect. She stated that she live at a [facility] apartment with her boyfriend Kris at [address] [place] [address]. [address] [address]. Pt. denied a history of drug/alcohol abuse or any visual or auditory hallucinations. Patient requested to speak to a Exhibit Preparator regarding her [employer]. SW referred to to case management.
[2023-04-06 16:00] VITALS: BP 125/62
--- NOTE | 2023-04-06 18:43 | NUR ---
VP ACCOUNT DIRECTOR CLOSING NOTES All due meds and tx given as ordered. Pt tolerated everything well. All needs attended to. Call light within reach. Will endorse to oncoming nurse.
--- NOTE | 2023-04-06 19:30 | NUR ---
MS RN OPENING NOTE RECEIVED PT IN BED, AWAKE, A/O X 4, ABLE TO VERBALIZE NEEDS. CURRENTLY ON NC @ 2 LPM, TOLERATING WELL, SATING @ 93%. NO S/SX OF ACUTE RESPI DISTRESS NOTED AT THIS TIME. NO SOB, BREATHING IS EVEN AND UNLABORED. IV ACCESS ON RFA #22g, PATENT AND INTACT, SL. ALL SAFETY MEASURES IN PLACE: BED LOCKED IN LOW POSITION, SR UP X2, CALL LIGHT AND TABLE WITHIN REACH. WILL CONTINUE TO MONITOR.
[2023-04-06] MEDS: ATORVASTATIN 40 MG TABLET PO SCH (21:18)
[2023-04-06] MEDS ORDERED: methylPREDNISolone SOD SUCC 40 MG/ML VIAL ONE (21:24)
[2023-04-07] MEDS: IPRATROPIUM NEB FS 0.5 MG/2.5 ML AMPUL.NEB NEB SCH ×4 (01:30→20:02)
[2023-04-07] MEDS: ALBUTEROL FS 2.5 MG/3 ML VIAL.NEB NEB SCH ×4 (01:30→20:02)
[2023-04-07 04:00] VITALS: BP 140/61
[2023-04-07] MEDS ORDERED: methylPREDNISolone SOD SUCC 40 MG/ML VIAL ONE (04:13)
[2023-04-07] MEDS: methylPREDNISolone SOD SUCC 40 MG/ML VIAL IV SCH (04:15)
[2023-04-07 06:15] LABS: BASOPHILS % (AUTO) 0.1 % (0.0-2.0); HEMATOCRIT 38 % (33-45); HEMOGLOBIN 12.1 g/dL (11.5-14.8); LYMPHOCYTES # (AUTO) 0.5 K/uL (0.8-4.8); LYMPHOCYTES % (AUTO) 5.5 % (20.0-44.0); MEAN CORPUSCULAR HGB CONC 32 g/dl (31.0-36.0); MEAN CORPUSCULAR VOLUME 98 fL (82-100); MONOCYTES # (AUTO) 0.3 K/uL (0.1-1.30); MONOCYTES % (AUTO) 3.7 % (2.0-12.0); NEUTROPHILS # (AUTO) 8.2 K/uL (1.8-8.9); NEUTROPHILS % (AUTO) 90.7 % (43.0-81.0); PLATELET COUNT (AUTO) 215 K/uL (150-450); RED BLOOD CELL COUNT(AUTO) 3.85 MIL/uL (4.0-5.2)
--- NOTE | 2023-04-07 06:45 | NUR ---
MS RN CLOSING NOTE NO SIGNIFICANT CHANGE T/O THE NIGHT. PT REMAINED STABLE. ALL DUE MEDS AND NEEDS MET. TURNED AND REPOSITIONED. WILL ENDORSE TO AM SHIFT NURSE FOR RICO.
[2023-04-07 06:59] LABS: CALCIUM, SERUM 9.1 mg/dL (8.5-10.1); CREATININE 0.7 mg/dL (0.6-1.3); POTASSIUM 3.9 mmol/L (3.5-5.1)
--- NOTE | 2023-04-07 07:29 | NUR ---
MS RN OPENING NOTE: RECEIVED PT IN BED, AWAKE, A/O X 4, ABLE TO MAKE NEEDS KNOWN. CURRENTLY ON NC @ 2 LPM, TOLERATING WELL. NO S/SX OF ACUTE RESPI DISTRESS NOTED. NO SOB, BREATHING IS EVEN AND UNLABORED. IV ACCESS ON RFA #22g, PATENT AND INTACT, SL. ALL SAFETY MEASURES IN PLACE: BED LOCKED IN LOW POSITION, SR UP X2, CALL LIGHT AND TABLE WITHIN REACH.
[2023-04-07] MEDS: LOSARTAN POTASSIUM 50 MG TABLET PO SCH (08:42)
[2023-04-07] MEDS: POTASSIUM CHLORIDE 20 MEQ TAB.PRT.SR PO SCH (08:42)
[2023-04-07] MEDS: ASPIRIN EC 81 MG TABLET.DR PO SCH (08:42)
[2023-04-07] MEDS: FUROSEMIDE 40 MG TABLET PO SCH (08:42)
[2023-04-07] MEDS: hydrALAZINE HCL 50 MG TABLET PO SCH ×3 (08:43→16:52)
[2023-04-07] MEDS: Z GUARD REMEDY 4 OZ OINT TP SCH ×2 (08:45→21:16)
[2023-04-07] MEDS: ENSURE ENLIVE 237 ML LIQUID (VANILLA) PO SCH ×3 (08:45→17:14)
[2023-04-07] MEDS: ENOXAPARIN SODIUM 40 MG/0.4 ML DISP.SYRIN SQ SCH (08:46)
[2023-04-07] MEDS: PANTOPRAZOLE 40 MG TABLET.DR PO SCH (08:48)
[2023-04-07] MEDS: LEVOFLOXACIN (250MG) 250 MG TABLET PO SCH (09:35)
[2023-04-07 12:00] VITALS: BP 145/80
[2023-04-07] MEDS: predniSONE 20 MG TABLET PO SCH (16:51)
--- NOTE | 2023-04-07 18:29 | NUR ---
MS RN CLOSING NOTE: PT SITTING AT BEDSIDE WITH TABLE. PT IS AOX4 ABLE TO MAKE NEEDS KNOWN. DENIES PAIN OR DISCOMFORT. ON 2LPM NC. O2SAT 95%. NO RESP DISTRESS NOTED. RFA 22G SL. PATENT AND INTACT. CALL LIGHT WITHIN REACH. INCONTINENT OF BLADDER AND BOWEL. KEPT CLEAN AND DRY. PT ABLE TO AMBULATE. SAFETY REMINDER RENDERED. BED KEPT LOW AND LOCK FOR SAFETY.
--- NOTE | 2023-04-07 19:30 | NUR ---
MS RN Opening Note Received patient in bed; awake, alert and oriented x 4. On O2 inhalation @ 2 lpm via nasal cannula; tolerating well. Not in any form of respiratory and cardiac distress. Denies any pain or discomfort. With IV access of right forearm 22g; patent, intact and saline locked. Able to make needs known. Fall and safety precautions initiated: call light and table within reach, side rails up x 2, bed in lowest locked position Will continue to monitor throughout shift.
[2023-04-07 20:00] VITALS: BP 157/86
[2023-04-07] MEDS: ATORVASTATIN 40 MG TABLET PO SCH (21:16)
[2023-04-07] MEDS: ZOLPIDEM TARTRATE 5 MG TABLET PO PRN (21:47)
[2023-04-08] MEDS: ALBUTEROL FS 2.5 MG/3 ML VIAL.NEB NEB SCH ×5 (01:30→19:32)
[2023-04-08] MEDS: IPRATROPIUM NEB FS 0.5 MG/2.5 ML AMPUL.NEB NEB SCH ×5 (01:30→19:32)
[2023-04-08 04:00] VITALS: BP 158/71
--- NOTE | 2023-04-08 06:48 | NUR ---
MS RN Closing Note Patient in bed; awake, a/o x 4. Still on o2 inhalation @ 2 lpm via nasal cannula; well tolerated. In no acute distress. No c/o pain or discomfort. With IV access of right forearm 22g; patent, intact and saline locked. All due meds given as indicated. All needs met. Fall and safety precautions maintained. Endorsed to morning shift for continuity of care.
[2023-04-08] MEDS: ASPIRIN EC 81 MG TABLET.DR PO SCH (09:00)
[2023-04-08] MEDS: PANTOPRAZOLE 40 MG TABLET.DR PO SCH (09:00)
[2023-04-08] MEDS: POTASSIUM CHLORIDE 20 MEQ TAB.PRT.SR PO SCH (09:00)
[2023-04-08] MEDS: hydrALAZINE HCL 50 MG TABLET PO SCH ×3 (09:01→16:27)
[2023-04-08] MEDS: LOSARTAN POTASSIUM 50 MG TABLET PO SCH (09:01)
[2023-04-08] MEDS: predniSONE 20 MG TABLET PO SCH ×2 (09:01→16:26)
[2023-04-08] MEDS: LEVOFLOXACIN (250MG) 250 MG TABLET PO SCH (09:01)
[2023-04-08] MEDS: FUROSEMIDE 40 MG TABLET PO SCH (09:01)
[2023-04-08] MEDS: Z GUARD REMEDY 4 OZ OINT TP SCH ×2 (09:02→20:38)
[2023-04-08] MEDS: ENOXAPARIN SODIUM 40 MG/0.4 ML DISP.SYRIN SQ SCH (09:04)
[2023-04-08] MEDS: ENSURE ENLIVE 237 ML LIQUID (VANILLA) PO SCH ×3 (09:08→16:34)
[2023-04-08 12:00] VITALS: BP 140/80
--- NOTE | 2023-04-08 16:27 | NUR ---
MS RN NOTE: HOLD HYDRALAZINE DUE TO LOW B/P
--- NOTE | 2023-04-08 18:18 | NUR ---
MS RN CLOSING NOTE: PT IN BED SEMIFOWLERS. PT IS AOX4 ABLE TO MAKE NEEDS KNOWN. DENIES PAIN OR DISCOMFORT. ON 2LPM NC. O2SAT 95%. NO RESP DISTRESS NOTED. RFA 22G SL. PATENT AND INTACT. CALL LIGHT WITHIN REACH. INCONTINENT OF BLADDER AND BOWEL. KEPT CLEAN AND DRY. PT ABLE TO AMBULATE. SAFETY REMINDER RENDERED. BED KEPT LOW AND LOCK FOR SAFETY.
--- NOTE | 2023-04-08 19:30 | NUR ---
MS RN OPENING NOTE RECEIVED SITTING IN BED, AWAKE, ALERT AND ORIENTED X4. ABLE TO MAKE NEEDS KNOWN. AFEBRILE AND NOT IN ANY FORM OF ACUTE DISTRESS. NO C/O PAIN OR DISCOMFORT AT THIS TIME. ON O2 INHALATION VIA NASAL CANNULA AT 2LPM. WITH IV ACCESS ON RFA 22G-SL. SAFETY MEASURES IN PLACE. KEPT BED IN LOCKED AND IN LOW POSITION. SIDE RAILS UP X2. ADVISED TO USE THE CALL LIGHT WHEN IN NEED OF ASSISTANCE.
[2023-04-08 20:00] VITALS: BP 131/71
[2023-04-08] MEDS: ATORVASTATIN 40 MG TABLET PO SCH (21:12)
[2023-04-08] MEDS: ZOLPIDEM TARTRATE 5 MG TABLET PO PRN (21:58)
--- NOTE | 2023-04-08 22:02 | NUR ---
MS RN NOTE PATIENT REQUESTED FOR AMBIEN TO BE TAKEN AT 2200 TO HELP HER GO TO SLEEP. ADMINISTERED PRN AMBIEN.
[2023-04-09] MEDS: ALBUTEROL FS 2.5 MG/3 ML VIAL.NEB NEB SCH ×4 (01:30→19:30)
[2023-04-09] MEDS: IPRATROPIUM NEB FS 0.5 MG/2.5 ML AMPUL.NEB NEB SCH ×4 (01:30→19:30)
[2023-04-09 04:00] VITALS: BP 135/70
--- NOTE | 2023-04-09 06:23 | NUR ---
MS RN CLOSING NOTE PATIENT IN BED, ASLEEP BUT EASY TO AROUSE AND RESPONSIVE. ABLE TO MAKE NEEDS KNOWN. AFEBRILE AND NOT IN ANY FORM OF ACUTE DISTRESS. NO C/O PAIN OR DISCOMFORT THROUGHOUT THE SHIFT. ON O2 INHALATION VIA NASAL CANNULA AT 2LPM. WITH IV ACCESS ON RFA 22G-SL. MEDICATED ORDERED. SAFETY MEASURES IN PLACE. KEPT BED IN LOCKED AND IN LOW POSITION. SIDE RAILS UP X2. ADVISED TO USE THE CALL LIGHT WHEN IN NEED OF ASSISTANCE. ALL NURSING NEEDS ATTENDED. ENDORSED TO INCOMING SHIFT FOR CONTINUITY OF CARE.
--- NOTE | 2023-04-09 07:21 | NUR ---
MS RN OPENING NOTE: RECEIVED PT IN BED. AOX3. ABLE TO MAKE NEEDS KNOWN. DENIES PAIN OR DISCOMFORT. ON 2LPM NC. NO SOB. NO RESP DISTRESS NOTED. AMBULATORY. INCONTINENT OF B AND B FUNCTION. ASSISTED WITH DIAPER CHANGE NEEDED. BED KEPT LOW AND LOCK POSITION FOR SAFETY.
[2023-04-09] MEDS: PANTOPRAZOLE 40 MG TABLET.DR PO SCH (08:09)
[2023-04-09] MEDS: FUROSEMIDE 40 MG TABLET PO SCH (08:09)
[2023-04-09] MEDS: predniSONE 20 MG TABLET PO SCH ×2 (08:10→16:09)
[2023-04-09] MEDS: POTASSIUM CHLORIDE 20 MEQ TAB.PRT.SR PO SCH (08:11)
[2023-04-09] MEDS: hydrALAZINE HCL 50 MG TABLET PO SCH ×3 (08:11→16:10)
[2023-04-09] MEDS: LOSARTAN POTASSIUM 50 MG TABLET PO SCH (08:11)
[2023-04-09] MEDS: ASPIRIN EC 81 MG TABLET.DR PO SCH (08:11)
[2023-04-09] MEDS: ENOXAPARIN SODIUM 40 MG/0.4 ML DISP.SYRIN SQ SCH (08:13)
[2023-04-09] MEDS: ENSURE ENLIVE 237 ML LIQUID (VANILLA) PO SCH ×3 (08:14→16:30)
[2023-04-09] MEDS: Z GUARD REMEDY 4 OZ OINT TP SCH ×2 (08:14→21:04)
--- NOTE | 2023-04-09 09:26 | NUR ---
MS ROBBINS NOTE: SEEN AND EXAMINED BY WILI CALLAHAN DNP. Addendum: 04/09/23 at 0928 by LAZARO DELONG RN PLEASE DELETE. WRONG PATIENT.
[2023-04-09] MEDS: LEVOFLOXACIN (250MG) 250 MG TABLET PO SCH (09:39)
--- NOTE | 2023-04-09 10:45 | NUR ---
MS RN NOTE: [employer]U [employer]ING MACHINE MECHANIC AT BEDSIDE.
[2023-04-09] MEDS ORDERED: LACT-246 PO (11:09)
[2023-04-09] MEDS ORDERED: LEVO250T59 PO (11:09)
[2023-04-09] MEDS ORDERED: IPRA0.2S9 NEB (11:09)
[2023-04-09] MEDS ORDERED: PANT40TA49 PO (11:09)
[2023-04-09] MEDS ORDERED: ALBUT2 NEB (11:09)
[2023-04-09 12:00] VITALS: BP 136/72
--- NOTE | 2023-04-09 18:07 | NUR ---
MS RN CLOSING NOTE: PATIENT IN BED, AWAKE. ABLE TO MAKE NEEDS KNOWN. AFEBRILE AND NOT IN ANY FORM OF ACUTE DISTRESS. NO C/O PAIN OR DISCOMFORT. ON O2 INHALATION VIA NASAL CANNULA AT 2LPM. WITH IV ACCESS ON RFA 22G-SL. MEDICATED ORDERED. SAFETY MEASURES IN PLACE. KEPT BED IN LOCKED AND IN LOW POSITION. SIDE RAILS UP X2. ADVISED TO USE THE CALL LIGHT WHEN IN NEED OF ASSISTANCE.
--- NOTE | 2023-04-09 19:30 | NUR ---
INSEMINATOR OPENING NOTE: RECEIVED PT IN BED, AWAKE, A/O X 4, ABLE TO MAKE NEEDS KNOWN. CURRENTLY ON NC @ 2 LPM, TOLERATING WELL. NO S/SX OF ACUTE RESPI DISTRESS NOTED. NO SOB, BREATHING IS EVEN AND UNLABORED. IV ACCESS ON RFA #22G, PATENT AND INTACT, SL. ALL SAFETY MEASURES IN PLACE: BED LOCKED IN LOW POSITION, SR UP X2, CALL LIGHT AND TABLE WITHIN REACH, WILL CONTINUE TO MONITOR
[2023-04-09 20:32] VITALS: BP 126/72
[2023-04-09] MEDS: ATORVASTATIN 40 MG TABLET PO SCH (21:51)
[2023-04-09] MEDS: ZOLPIDEM TARTRATE 5 MG TABLET PO PRN (21:51)
[2023-04-10] MEDS: IPRATROPIUM NEB FS 0.5 MG/2.5 ML AMPUL.NEB NEB SCH ×2 (01:30→07:47)
[2023-04-10] MEDS: ALBUTEROL FS 2.5 MG/3 ML VIAL.NEB NEB SCH ×2 (01:30→07:47)
[2023-04-10 04:00] VITALS: BP 120/70
[2023-04-10 04:38] VITALS: BP 120/70
--- NOTE | 2023-04-10 06:13 | NUR ---
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
[2023-04-10] MEDS: PANTOPRAZOLE 40 MG TABLET.DR PO SCH (07:10)
[2023-04-10] MEDS: predniSONE 20 MG TABLET PO SCH (08:00)
[2023-04-10] MEDS: ASPIRIN EC 81 MG TABLET.DR PO SCH (08:00)
[2023-04-10] MEDS: POTASSIUM CHLORIDE 20 MEQ TAB.PRT.SR PO SCH (08:00)
[2023-04-10 08:01] VITALS: BP 149/79
[2023-04-10] MEDS: FUROSEMIDE 40 MG TABLET PO SCH (08:01)
[2023-04-10] MEDS: hydrALAZINE HCL 50 MG TABLET PO SCH ×2 (08:01→12:55)
[2023-04-10] MEDS: LOSARTAN POTASSIUM 50 MG TABLET PO SCH (08:01)
[2023-04-10] MEDS: ENSURE ENLIVE 237 ML LIQUID (VANILLA) PO SCH ×2 (08:15→12:00)
[2023-04-10] MEDS: Z GUARD REMEDY 4 OZ OINT TP SCH (08:15)
[2023-04-10] MEDS: ENOXAPARIN SODIUM 40 MG/0.4 ML DISP.SYRIN SQ SCH (08:17)
[2023-04-10] MEDS: LEVOFLOXACIN (250MG) 250 MG TABLET PO SCH (09:05)
--- NOTE | 2023-04-10 10:15 | NUR ---
COVID TEST DONE
--- NOTE | 2023-04-10 10:35 | NUR ---
GIVE REPORT TO [facility] AND SPOKE JUAN JOSE ROBBINS.
--- NOTE | 2023-04-10 13:03 | NUR ---
PATIENT DISCHARGED TO [facility] ([place] VIA AMBULANCE, PATIENT IS IN STABLE CONDITION
== END 2023-04-10 13:02 | DRG 291 ==
LOC: ER 21:36 → TELE1 23:42 → MEDSG1 04-05 00:47
PROVIDERS: ADMIT Nurse Practitioner Acute Care; ATTEND Nurse Practitioner Acute Care
DX: I11.0 Hypertensive heart disease with heart failure (principal); E43 Unspecified severe protein-calorie malnutrition; I50.43 Acute on chronic combined systolic (congestive) and diastolic (congestive) heart failure; J44.1 Chronic obstructive pulmonary disease with (acute) exacerbation; R64 Cachexia; Z79.51 Long term (current) use of inhaled steroids; Z79.82 Long term (current) use of aspirin; Z79.899 Other long term (current) drug therapy; E78.5 Hyperlipidemia, unspecified; F17.200 Nicotine dependence, unspecified, uncomplicated; F29 Unspecified psychosis not due to a substance or known physiological condition; Z59.00 Homelessness unspecified; K21.9 Gastro-esophageal reflux disease without esophagitis; Z98.51 Tubal ligation status; F41.9 Anxiety disorder, unspecified; Z99.81 Dependence on supplemental oxygen
CPT/HCPCS: 36415; 36600; 71045-TC; 80048-TC; 80076-TC; 82803-TC; 83735-TC; 83880; 84100-TC; 84484-TC; 85025-TC; 87081-TC; 94799-TC; 97110-TC; 97116-TC; 97530-TC; G0378; J1650; J2920; J2930

== ENCOUNTER 2023-11-30 17:45 | Inpatient (IN) | payer MEDICARE, OTHER ==
[~2023-11-30] VITALS: Ht 157.5 cm; Wt 44.5 kg
[2023-11-30] VITALS (7 sets, daily range): BP systolic 210; BP diastolic 90; TEMP 97.5; O2SAT 96–100
[~2023-11-30 17:45] MED LIST changes: +LEVO250T59 PO; +PANT40TA49 PO
[2023-11-30] MEDS ORDERED: CHOL100043 PO (18:34)
[2023-11-30] MEDS ORDERED: SENN-261 PO (18:34)
[2023-11-30] MEDS ORDERED: MULT-447 PO (18:34)
[2023-11-30] MEDS ORDERED: ASCO-352 PO (18:34)
[2023-11-30] MEDS ORDERED: POTA-88 PO (18:34)
[2023-11-30] MEDS ORDERED: TRAZ-257 PO (18:34)
[2023-11-30] MEDS ORDERED: ALBU0.633 IH (18:34)
[2023-11-30] MEDS ORDERED: ZINC50TA69 PO (18:34)
[2023-11-30] MEDS ORDERED: TIOT18CA3 IH (18:34)
[2023-11-30] MEDS ORDERED: ACET1TAB23 MT (18:34)
[2023-11-30] MEDS ORDERED: ACET-2605 PO (18:34)
[2023-11-30] MEDS ORDERED: HYDR-4077 PO (18:34)
[2023-11-30] MEDS ORDERED: ASPI-1169 PO (18:34)
[2023-11-30] MEDS ORDERED: MONT10TA22 PO (18:34)
[2023-11-30] MEDS ORDERED: AMIN30LI27 PO (18:34)
[2023-11-30] MEDS ORDERED: methylPREDNISolone SOD SUCC 125 MG/2ML VIAL ONE (18:36)
[2023-11-30 18:39] LABS: EOSINOPHILS # (AUTO) 0.2 K/uL (0.0-0.7); EOSINOPHILS % (AUTO) 3.4 % (0.0-6.0); HEMATOCRIT 40 % (33-45); HEMOGLOBIN 13.1 g/dL (11.5-14.8); LYMPHOCYTES % (AUTO) 20.1 % (20.0-44.0); MEAN CORPUSCULAR HEMOGLOBIN 31 PG (26.0-33.0); MEAN CORPUSCULAR HGB CONC 33 g/dl (31.0-36.0); MEAN CORPUSCULAR VOLUME 94 fL (82-100); MONOCYTES # (AUTO) 0.5 K/uL (0.1-1.30); MONOCYTES % (AUTO) 10.1 % (2.0-12.0); NEUTROPHILS # (AUTO) 3.2 K/uL (1.8-8.9); NEUTROPHILS % (AUTO) 65.4 % (43.0-81.0); PLATELET COUNT (AUTO) 242 K/uL (150-450); RED BLOOD CELL COUNT(AUTO) 4.21 MIL/uL (4.0-5.2); RED CELL DISTRIBUTION WIDTH 15.1 % (11.5-15.0); WHITE BLOOD COUNT (AUTO) 4.9 K/uL (4.3-11.0)
[2023-11-30] MEDS ORDERED: ALBUTEROL FS 2.5 MG/3 ML VIAL.NEB ONE (18:39)
[2023-11-30] MEDS ORDERED: IPRATROPIUM NEB FS 0.5 MG/2.5 ML AMPUL.NEB ONE (18:40)
[2023-11-30] MEDS: methylPREDNISolone SOD SUCC 125 MG/2ML VIAL IV ONE (18:40)
[2023-11-30] MEDS: ALBUTEROL FS 2.5 MG/3 ML VIAL.NEB NEB ONE (18:43)
[2023-11-30] MEDS: IPRATROPIUM NEB FS 0.5 MG/2.5 ML AMPUL.NEB NEB ONE (18:43)
[2023-11-30 19:11] LABS: CARBON DIOXIDE 35 mmol/L (21-32); CHLORIDE 97 mmol/L (98-107); CREATININE 0.6 mg/dL (0.6-1.3); GLUCOSE 114 mg/dL (74-106); POTASSIUM 3.1 mmol/L (3.5-5.1); SODIUM SERUM 136 mmol/L (136-145); UREA NITROGEN, BLOOD 16 mg/dL (7-18)
[2023-11-30] MEDS ORDERED: SENNOSIDES 8.6 MG TABLET PO PRN (20:00)
[2023-11-30] MEDS ORDERED: ONDANSETRON HCL/PF 4 MG/2 ML VIAL IVP PRN (20:00)
[2023-11-30] MEDS ORDERED: hydrALAZINE HCL IV 20 MG VIAL ONE (20:42)
[2023-11-30] MEDS ORDERED: CARVEDILOL 6.25 MG TABLET ONE (20:42)
[2023-11-30] MEDS ORDERED: POTASSIUM CHLORIDE 20 MEQ TAB.PRT.SR PO ONE (20:42)
[2023-11-30] MEDS ORDERED: hydrALAZINE HCL 50 MG TABLET ONE (20:42)
[2023-11-30] MEDS: hydrALAZINE HCL 50 MG TABLET PO SCH (20:48)
[2023-11-30] MEDS: hydrALAZINE HCL IV 20 MG VIAL IV ONE (20:48)
[2023-11-30] MEDS: POTASSIUM CHLORIDE 20 MEQ TAB.PRT.SR PO ONE (20:48)
[2023-11-30] MEDS: CARVEDILOL 6.25 MG TABLET PO SCH (20:49)
[2023-11-30] MEDS: methylPREDNISolone SOD SUCC 40 MG/ML VIAL IV SCH (21:00)
[2023-11-30] MEDS ORDERED: CEFTRIAXONE 1GM BAG (ER ONLY) 1 GM/50 ML PIGGYBACK IV ONE (22:30)
[2023-11-30] MEDS: IPRATROPIUM NEB FS 0.5 MG/2.5 ML AMPUL.NEB NEB SCH (22:46)
[2023-11-30] MEDS: ALBUTEROL HALF STRENGTH 1.25 MG/3 ML VIAL.NEB NEB SCH (22:47)
[2023-11-30] MEDS ORDERED: IPRATROPIUM NEB FS 0.5 MG/2.5 ML AMPUL.NEB NEB PRN (23:00)
[2023-11-30] MEDS ORDERED: ALBUTEROL HALF STRENGTH 1.25 MG/3 ML VIAL.NEB NEB PRN (23:00)
[2023-11-30] MEDS: ATORVASTATIN 40 MG TABLET PO SCH (23:05)
[2023-11-30] MEDS: MONTELUKAST SODIUM (10MG) 10 MG TABLET PO SCH (23:05)
[2023-11-30] MEDS: ACETAMINOPHEN W/ CODEINE#3 1 EA TABLET PO PRN (23:05)
[2023-11-30] MEDS: TRAZODONE 50 MG TABLET PO SCH (23:05)
[2023-11-30] MEDS ORDERED: CEFEPIME 1 GM VIAL ONE (23:16)
[2023-11-30] MEDS: CEFEPIME 1 GM in IV D5W 50 ML IV SCH (23:32)
[2023-12-01] VITALS (11 sets, daily range): BP systolic 160–176; BP diastolic 66–73; TEMP 98.4–99.1; O2SAT 95–100
[2023-12-01] MEDS: CEFTRIAXONE 1 G in IV D5W 50 ML IV ONE (00:11)
[2023-12-01] MEDS: CEFTRIAXONE 1GM BAG (ER ONLY) 50 ML IV ONE (00:17)
[2023-12-01] MEDS: NITROGLYCERIN 30 GM TUBE TP SCH (00:30)
[2023-12-01] MEDS: NITROGLYCERIN PACKET 1 GM PACKET ONE (00:42)
[2023-12-01] MEDS: hydrALAZINE HCL IV 20 MG VIAL IV PRN (00:44)
[2023-12-01] MEDS: IPRATROPIUM NEB FS 0.5 MG/2.5 ML AMPUL.NEB NEB SCH ×2 (01:05→11:40)
[2023-12-01 07:08] LABS: BASOPHILS % (AUTO) 0.2 % (0.0-2.0); HEMATOCRIT 38 % (33-45); HEMOGLOBIN 12.7 g/dL (11.5-14.8); LYMPHOCYTES # (AUTO) 0.4 K/uL (0.8-4.8); LYMPHOCYTES % (AUTO) 11.1 % (20.0-44.0); MEAN CORPUSCULAR HEMOGLOBIN 31 PG (26.0-33.0); MEAN CORPUSCULAR HGB CONC 34 g/dl (31.0-36.0); MEAN CORPUSCULAR VOLUME 93 fL (82-100); MONOCYTES # (AUTO) 0.1 K/uL (0.1-1.30); MONOCYTES % (AUTO) 2.4 % (2.0-12.0); NEUTROPHILS % (AUTO) 86.3 % (43.0-81.0); PLATELET COUNT (AUTO) 240 K/uL (150-450); RED BLOOD CELL COUNT(AUTO) 4.06 MIL/uL (4.0-5.2); RED CELL DISTRIBUTION WIDTH 15.4 % (11.5-15.0); WHITE BLOOD COUNT (AUTO) 3.5 K/uL (4.3-11.0)
[2023-12-01 07:12] LABS: CALCIUM, SERUM 9.1 mg/dL (8.5-10.1); CREATININE 0.7 mg/dL (0.6-1.3); MAGNESIUM 1.9 mg/dL (1.8-2.4); PHOSPHORUS 3.9 mg/dL (2.5-4.9); POTASSIUM 3.6 mmol/L (3.5-5.1)
[2023-12-01] MEDS: CEFEPIME 2 GM in IV D5W 100 ML IV SCH (10:01)
[2023-12-01] MEDS: MULTIVITAMIN/LUTEIN/MINERALS 1 TAB PO SCH (10:01)
[2023-12-01] MEDS: CHOLECALCIFEROL (VITAMIN D 3) 400 UNIT TABLET PO SCH (10:01)
[2023-12-01] MEDS: ASPIRIN 81 MG TAB.CHEW PO SCH (10:01)
[2023-12-01] MEDS: ASCORBIC ACID 500 MG TABLET PO SCH (10:02)
[2023-12-01] MEDS: FUROSEMIDE 40 MG TABLET PO SCH (10:02)
[2023-12-01] MEDS: ZINC SULFATE 220 MG CAPSULE PO SCH (10:03)
[2023-12-01] MEDS: LOSARTAN POTASSIUM 50 MG TABLET PO SCH (10:04)
[2023-12-02] VITALS (16 sets, daily range): BP systolic 153–193; BP diastolic 62–90; TEMP 97.9–98.8; O2SAT 95–100
[2023-12-02] MEDS: ACETAMINOPHEN 325 MG TABLET PO PRN (05:55)
[2023-12-02] MEDS: AMLODIPINE BESYLATE 10 MG TABLET PO SCH (09:01)
[2023-12-02] MEDS: methylPREDNISolone SOD SUCC 40 MG/ML VIAL IV SCH (12:32)
[2023-12-02] MEDS: ENSURE ENLIVE 237 ML LIQUID (VANILLA) PO SCH (17:59)
[2023-12-03] VITALS (17 sets, daily range): BP systolic 151–213; BP diastolic 59–87; TEMP 98.4–98.6; O2SAT 96–99
[2023-12-03] MEDS: hydrALAZINE HCL 50 MG TABLET PO SCH (09:26)
[2023-12-03] MEDS: GUAIFENESIN LA 600 MG TABLET.SA PO SCH (09:30)
[2023-12-03] MEDS: ENSURE ENLIVE CHOC 237 ML CAN PO SCH (17:04)
[2023-12-04] VITALS (12 sets, daily range): BP systolic 134–214; BP diastolic 57–78; TEMP 98.2–98.6; O2SAT 96–98
[2023-12-04] MEDS: LOSARTAN POTASSIUM 50 MG TABLET PO SCH (09:00)
[2023-12-05] VITALS (8 sets, daily range): BP systolic 133–173; BP diastolic 64–76; TEMP 98.8; O2SAT 96–100
[2023-12-05] MEDS: predniSONE 20 MG TABLET PO SCH (08:46)
[2023-12-05] MEDS: LISINOPRIL (20MG) 20 MG TABLET PO SCH (09:01)
== END 2023-12-05 15:40 | DRG 190 ==
LOC: ER 18:03 → TELE 20:28 → MED 12-03 15:41
PROVIDERS: ADMIT Nurse Practitioner Acute Care; ATTEND Internal Medicine
DX: J44.1 Chronic obstructive pulmonary disease with (acute) exacerbation (principal); E43 Unspecified severe protein-calorie malnutrition; I50.43 Acute on chronic combined systolic (congestive) and diastolic (congestive) heart failure; R64 Cachexia; Z68.1 Body mass index [BMI] 19.9 or less, adult; I11.0 Hypertensive heart disease with heart failure; E78.5 Hyperlipidemia, unspecified; E87.6 Hypokalemia; Z79.82 Long term (current) use of aspirin; M62.50 Muscle wasting and atrophy, not elsewhere classified, unspecified site; K21.9 Gastro-esophageal reflux disease without esophagitis; F41.9 Anxiety disorder, unspecified; Z60.9 Problem related to social environment, unspecified; Z87.891 Personal history of nicotine dependence
CPT/HCPCS: 36415; 71045-TC; 80048-TC; 83735-TC; 84100-TC; 84484-TC; 85025-TC; 87081-TC; 93307-TC; 94799-TC; A4223; G0378; J0360; J0692; J0696; J2920; J2930; J7050; J7060

== ENCOUNTER 2024-02-24 13:23 | Inpatient (IN) | payer MEDICARE, OTHER ==
[~2024-02-24] VITALS: Ht 157.5 cm; Wt 44.0 kg
[~2024-02-24 13:23] MED LIST changes: +ACET-2605 PO; +ACET1TAB23 MT; +ALBU0.633 IH; -ALBUT2 NEB; +AMIN30LI27 PO; +ASCO-352 PO; +ASPI-1169 PO; -ASPI-1420 PO; +CHOL100043 PO; -IPRA0.2S9 NEB; -LACT-246 PO; -LEVO250T59 PO; -METH4TAB3 PO; +MONT10TA22 PO; +MULT-447 PO; -PANT40TA49 PO; +POTA-88 PO; -POTA20TA83 PO; +SENN-261 PO; +TIOT18CA3 IH; -TRAZ-252 PO; +TRAZ-257 PO; +ZINC50TA69 PO
[2024-02-24] MEDS: IV NS 0.9% 500 ML BAG IV ONE (13:54)
[2024-02-24] MEDS ORDERED: hydrALAZINE HCL IV 20 MG VIAL IV PRN (14:00)
[2024-02-24] MEDS ORDERED: ONDANSETRON HCL/PF 4 MG/2 ML VIAL IVP PRN (14:00)
[2024-02-24] MEDS ORDERED: LISI20TA30 PO (14:02)
[2024-02-24] MEDS ORDERED: GUAI600T53 PO (14:02)
[2024-02-24] MEDS ORDERED: FLUT1BLS6 IH (14:02)
[2024-02-24] MEDS ORDERED: NALO4SPR NS (14:02)
[2024-02-24 14:03] LABS: BASOPHILS % (AUTO) 0.1 % (0.0-2.0); EOSINOPHILS % (AUTO) 0.2 % (0.0-6.0); HEMATOCRIT 33 % (33-45); HEMOGLOBIN 11.1 g/dL (11.5-14.8); LYMPHOCYTES # (AUTO) 0.4 K/uL (0.8-4.8); MEAN CORPUSCULAR HEMOGLOBIN 32 PG (26.0-33.0); MEAN CORPUSCULAR HGB CONC 33 g/dl (31.0-36.0); MEAN CORPUSCULAR VOLUME 96 fL (82-100); MONOCYTES # (AUTO) 0.8 K/uL (0.1-1.30); NEUTROPHILS % (AUTO) 84.7 % (43.0-81.0); PLATELET COUNT (AUTO) 160 K/uL (150-450); RED BLOOD CELL COUNT(AUTO) 3.47 MIL/uL (4.0-5.2); RED CELL DISTRIBUTION WIDTH 13.8 % (11.5-15.0); WHITE BLOOD COUNT (AUTO) 8.3 K/uL (4.3-11.0)
[2024-02-24 14:21] LABS: CALCIUM, SERUM 8.5 mg/dL (8.5-10.1); CARBON DIOXIDE 25 mmol/L (21-32); CHLORIDE 95 mmol/L (98-107); CREATININE 1.2 mg/dL (0.6-1.3); GLUCOSE 87 mg/dL (74-106); POTASSIUM 3.4 mmol/L (3.5-5.1); SODIUM SERUM 132 mmol/L (136-145); UREA NITROGEN, BLOOD 48 mg/dL (7-18)
[2024-02-24 14:37] LABS: ALANINE AMINOTRANSFERASE 49 U/L (12-78); ALBUMIN 2.4 g/dL (3.4-5.0); ALKALINE PHOSPHATASE 72 U/L (46-116); ASPARTATE AMINOTRANSFERASE 64 U/L (15-37); BILIRUBIN,DIRECT 0.4 mg/dL (0.0-0.2); BILIRUBIN,TOTAL 0.9 mg/dL (0.2-1.0); TOTAL PROTEIN, SERUM 6.7 g/dL (6.4-8.2)
[2024-02-24 14:40] LABS: THYROID STIMULATING HORMONE 0.613 uIU/mL (0.358-3.74)
[2024-02-24] MEDS: CEFEPIME 1 GM in IV D5W 50 ML IV SCH (17:26)
[2024-02-24 17:30] VITALS: BP 151/60; TEMP 98.8; O2SAT 98
[2024-02-24] MEDS: CARVEDILOL 6.25 MG TABLET PO SCH (17:30)
[2024-02-24] MEDS: hydrALAZINE HCL 50 MG TABLET PO SCH (17:30)
[2024-02-24 20:00] VITALS: BP 97/43; TEMP 97.5; O2SAT 99
[2024-02-24] MEDS: HEPARIN SODIUM, PORCINE 5000 UNITS/1 ML VIAL SQ SCH (20:39)
[2024-02-24 20:48] VITALS: O2SAT 92
[2024-02-24] MEDS: ALBUTEROL FS 2.5 MG/0.5 ML VIAL.NEB NEB PRN (20:54)
[2024-02-24 21:03] VITALS: O2SAT 94; O2SAT 95
[2024-02-24] MEDS: TRAZODONE 50 MG TABLET PO SCH (21:31)
[2024-02-24] MEDS: ATORVASTATIN 40 MG TABLET PO SCH (21:31)
[2024-02-24] MEDS: MONTELUKAST SODIUM (10MG) 10 MG TABLET PO SCH (21:31)
[2024-02-24 23:19] VITALS: O2SAT 95
[2024-02-24] MEDS: ALBUTEROL FS 2.5 MG/0.5 ML VIAL.NEB IH SCH (23:19)
[2024-02-24 23:34] VITALS: O2SAT 95
[2024-02-25] VITALS (17 sets, daily range): BP systolic 91–152; BP diastolic 46–68; TEMP 97.5–99.4; O2SAT 95–100
[2024-02-25] MEDS: ACETAMINOPHEN 325 MG TABLET PO PRN (04:23)
[2024-02-25 07:28] LABS: ALANINE AMINOTRANSFERASE 51 U/L (12-78); ALBUMIN 1.9 g/dL (3.4-5.0); ALKALINE PHOSPHATASE 66 U/L (46-116); ASPARTATE AMINOTRANSFERASE 80 U/L (15-37); BILIRUBIN,TOTAL 0.7 mg/dL (0.2-1.0); CALCIUM, SERUM 7.7 mg/dL (8.5-10.1); CARBON DIOXIDE 23 mmol/L (21-32); CHLORIDE 99 mmol/L (98-107); CREATININE 1.2 mg/dL (0.6-1.3); GLUCOSE 57 mg/dL (74-106); MAGNESIUM 2.6 mg/dL (1.8-2.4); PHOSPHORUS 4.8 mg/dL (2.5-4.9); POTASSIUM 3.4 mmol/L (3.5-5.1); SODIUM SERUM 134 mmol/L (136-145); TOTAL PROTEIN, SERUM 5.5 g/dL (6.4-8.2); UREA NITROGEN, BLOOD 52 mg/dL (7-18)
[2024-02-25 07:54] LABS: BASOPHILS % (AUTO) 0.2 % (0.0-2.0); EOSINOPHILS % (AUTO) 0.5 % (0.0-6.0); HEMATOCRIT 31 % (33-45); HEMOGLOBIN 10.4 g/dL (11.5-14.8); LYMPHOCYTES # (AUTO) 0.4 K/uL (0.8-4.8); LYMPHOCYTES % (AUTO) 5.5 % (20.0-44.0); MEAN CORPUSCULAR HEMOGLOBIN 32 PG (26.0-33.0); MEAN CORPUSCULAR HGB CONC 34 g/dl (31.0-36.0); MEAN CORPUSCULAR VOLUME 95 fL (82-100); MONOCYTES # (AUTO) 0.7 K/uL (0.1-1.30); MONOCYTES % (AUTO) 10.3 % (2.0-12.0); NEUTROPHILS # (AUTO) 5.7 K/uL (1.8-8.9); NEUTROPHILS % (AUTO) 83.5 % (43.0-81.0); PLATELET COUNT (AUTO) 151 K/uL (150-450); RED BLOOD CELL COUNT(AUTO) 3.24 MIL/uL (4.0-5.2); RED CELL DISTRIBUTION WIDTH 14.1 % (11.5-15.0); WHITE BLOOD COUNT (AUTO) 6.9 K/uL (4.3-11.0)
[2024-02-25] MEDS: IPRATROPIUM NEB FS 0.5 MG/2.5 ML AMPUL.NEB IH SCH (08:09)
[2024-02-25] MEDS: ASPIRIN 81 MG TAB.CHEW PO SCH (08:16)
[2024-02-25] MEDS: LOSARTAN POTASSIUM 50 MG TABLET PO SCH (09:00)
[2024-02-25] MEDS ORDERED: FUROSEMIDE 40 MG TABLET PO SCH (09:00)
[2024-02-25] MEDS: POTASSIUM CHLORIDE 20 MEQ TAB.PRT.SR PO SCH (09:32)
[2024-02-25 11:30] LABS: APPEARANCE,URINE CLEAR (CLEAR); BILIRUBIN,URINE NEGATIVE (NEGATIVE); BLOOD, URINE TRACE-INTA Ery/uL (NEGATIVE); COLOR,URINE YELLOW (YELLOW); KETONES,URINE TRACE mg/dL (NEGATIVE); LEUKOCYTE ESTERASE ,URINE TRACE (NEGATIVE); NITRITE, URINE NEGATIVE (NEGATIVE); PROTEIN,URINE 1+ mg/dl (NEGATIVE); UGLUCOSE NEGATIVE (NEGATIVE); UROBILINOGEN,URINE 0.2 EU/dL (0.2)
[2024-02-25] MEDS: MORPHINE SULFATE INJ 2 MG/ML DISP.SYRIN IV PRN (11:52)
[2024-02-25 12:15] LABS: MUCUS,URINE Few /LPF (None Seen)
[2024-02-25 12:18] LABS: RBC,URINE 0-2 /HPF (0-2)
[2024-02-25 12:19] LABS: ADD URINE CULTURE YES; BACTERIA,URINE 2+ /HPF (None Seen)
[2024-02-25 12:21] LABS: CALCIUM OXALATE CRYSTALS,UR Rare /HPF (None Seen); FINE GRANULAR CASTS,URINE Rare /LPF (None Seen)
[2024-02-26] VITALS (18 sets, daily range): BP systolic 111–147; BP diastolic 57–66; TEMP 97.8–98.1; O2SAT 95–100
[2024-02-26 07:38] LABS: BASOPHILS % (AUTO) 0.1 % (0.0-2.0); EOSINOPHILS # (AUTO) 0.1 K/uL (0.0-0.7); EOSINOPHILS % (AUTO) 1.8 % (0.0-6.0); HEMATOCRIT 33 % (33-45); HEMOGLOBIN 11.3 g/dL (11.5-14.8); LYMPHOCYTES # (AUTO) 0.5 K/uL (0.8-4.8); LYMPHOCYTES % (AUTO) 6.5 % (20.0-44.0); MEAN CORPUSCULAR HEMOGLOBIN 32 PG (26.0-33.0); MEAN CORPUSCULAR HGB CONC 34 g/dl (31.0-36.0); MEAN CORPUSCULAR VOLUME 94 fL (82-100); MONOCYTES # (AUTO) 0.7 K/uL (0.1-1.30); NEUTROPHILS # (AUTO) 5.8 K/uL (1.8-8.9); NEUTROPHILS % (AUTO) 81.6 % (43.0-81.0); PLATELET COUNT (AUTO) 194 K/uL (150-450); RED BLOOD CELL COUNT(AUTO) 3.51 MIL/uL (4.0-5.2); RED CELL DISTRIBUTION WIDTH 14.1 % (11.5-15.0); WHITE BLOOD COUNT (AUTO) 7.2 K/uL (4.3-11.0)
[2024-02-26 07:47] LABS: ALANINE AMINOTRANSFERASE 78 U/L (12-78); ALBUMIN 2.2 g/dL (3.4-5.0); ALKALINE PHOSPHATASE 85 U/L (46-116); ASPARTATE AMINOTRANSFERASE 111 U/L (15-37); BILIRUBIN,TOTAL 0.4 mg/dL (0.2-1.0); CALCIUM, SERUM 8.3 mg/dL (8.5-10.1); CARBON DIOXIDE 27 mmol/L (21-32); CHLORIDE 102 mmol/L (98-107); GLUCOSE 122 mg/dL (74-106); MAGNESIUM 2.5 mg/dL (1.8-2.4); PHOSPHORUS 2.2 mg/dL (2.5-4.9); SODIUM SERUM 136 mmol/L (136-145); TOTAL PROTEIN, SERUM 6.5 g/dL (6.4-8.2); UREA NITROGEN, BLOOD 45 mg/dL (7-18)
[2024-02-26 07:52] LABS: CREATINE KINASE, TOTAL 148 U/L (26-192)
[2024-02-26] MEDS ORDERED: ASPI-1169 PO (11:45)
[2024-02-26] MEDS ORDERED: NITR100C6 PO (11:45)
[2024-02-26] MEDS: K PHOS NEUTRAL 250 MG TABLET PO ONE (16:01)
[2024-02-26] MEDS: ENSURE ENLIVE 237 ML LIQUID (VANILLA) PO SCH (18:19)
[2024-02-26] MEDS: MUPIROCIN OINT 2% 22 GM TUBE NS SCH (21:14)
[2024-02-27] VITALS (14 sets, daily range): BP systolic 90–157; BP diastolic 45–70; TEMP 97.9–99; O2SAT 94–99
[2024-02-27 08:07] LABS: PTH, INTACT 26 pg/mL (15-65)
[2024-02-28] VITALS (15 sets, daily range): BP systolic 121–160; BP diastolic 51–69; TEMP 97.5–99; O2SAT 95–99
[2024-02-28 17:24] LABS: BILIRUBIN,DIRECT 0.1 mg/dL (0.0-0.2); BILIRUBIN,TOTAL 0.4 mg/dL (0.2-1.0); TOTAL PROTEIN, SERUM 5.8 g/dL (6.4-8.2)
[2024-02-29] VITALS (12 sets, daily range): BP systolic 104–160; BP diastolic 52–65; TEMP 97.9–98.4; O2SAT 98–99
[2024-02-29 10:10] LABS: *SPE A/G RATIO 0.7 (0.7-1.7); *SPE ALBUMIN 2.3 g/dL (2.9-4.4); *SPE ALPHA-1-GLOBULIN 0.6 g/dL (0.0-0.4); *SPE ALPHA-2-GLOBULIN 1.3 g/dL (0.4-1.0); *SPE BETA GLOBULIN 0.8 g/dL (0.7-1.3); *SPE GLOBULIN, TOTAL 3.3 g/dL (2.2-3.9); *SPE M-SPIKE Not Observed g/dL (Not Observed); *SPE PROTEIN TOTAL 5.6 g/dL (6.0-8.5); *SPEGAMMA GLOBULIN 0.7 g/dL (0.4-1.8)
[2024-02-29] MEDS: CEFEPIME 1 GM in IV D5W 50 ML IV SCH (10:12)
[2024-02-29] MEDS: FUROSEMIDE 40 MG TABLET PO SCH (10:13)
== END 2024-02-29 13:00 | DRG 189 ==
LOC: ER 13:25 → MED 16:36 → TELE 02-25 → MED 02-29 11:22
PROVIDERS: ADMIT Internal Medicine; ATTEND Internal Medicine
DX: J96.20 Acute and chronic respiratory failure, unspecified whether with hypoxia or hypercapnia (principal); E43 Unspecified severe protein-calorie malnutrition; N39.0 Urinary tract infection, site not specified; E87.1 Hypo-osmolality and hyponatremia; I50.32 Chronic diastolic (congestive) heart failure; R64 Cachexia; N17.9 Acute kidney failure, unspecified; Z68.1 Body mass index [BMI] 19.9 or less, adult; J44.1 Chronic obstructive pulmonary disease with (acute) exacerbation; I13.0 Hypertensive heart and chronic kidney disease with heart failure and stage 1 through stage 4 chronic kidney disease, or unspecified chronic kidney disease; R62.7 Adult failure to thrive; D64.9 Anemia, unspecified; E86.0 Dehydration; E78.5 Hyperlipidemia, unspecified; E87.6 Hypokalemia; E88.09 Other disorders of plasma-protein metabolism, not elsewhere classified; N18.9 Chronic kidney disease, unspecified; Z71.6 Tobacco abuse counseling; Z98.51 Tubal ligation status; Z20.822 Contact with and (suspected) exposure to COVID-19; R53.1 Weakness; F17.210 Nicotine dependence, cigarettes, uncomplicated; Z22.322 Carrier or suspected carrier of Methicillin resistant Staphylococcus aureus; M89.8X9 Other specified disorders of bone, unspecified site
CPT/HCPCS: 36415; 71045-TC; 76770-TC; 80048-TC; 80053-TC; 80076-TC; 81001; 82550-TC; 82962-TC; 83735-TC; 83880; 83970; 84100-TC; 84155; 84165; 84443-TC; 84484-TC; 85025-TC; 87081-TC; 94760-TC; 94761-TC; 94799-TC; A4223; G0378; J0692; J1644; J2270; J7060

== ENCOUNTER 2024-07-05 20:37 | Inpatient (IN) | payer MEDICARE, OTHER ==
[~2024-07-05] VITALS: Ht 154.9 cm; Wt 43.1 kg
[~2024-07-05 20:37] MED LIST changes: +FLUT1BLS6 IH; +GUAI600T53 PO; +LISI20TA30 PO; -LOSA50TA39 PO; -MULT-447 PO; +NALO4SPR NS; +NITR100C6 PO; -POTA-88 PO; -TIOT18CA3 IH
[2024-07-05] MEDS ORDERED: Magnesium 1GM/D5W 100ML PREMIX 200 ML IV ONE (21:40)
[2024-07-05] MEDS ORDERED: methylPREDNISolone SOD SUCC 125 MG/2ML VIAL ONE (21:40)
[2024-07-05] MEDS: Magnesium 1GM/D5W 100ML PREMIX 200 ML IV ONE (21:56)
[2024-07-05] MEDS: methylPREDNISolone SOD SUCC 125 MG/2ML VIAL IV ONE (21:56)
[2024-07-05 22:02] VITALS: O2SAT 97
[2024-07-05] MEDS: ALBUTEROL FS 2.5 MG/3 ML VIAL.NEB CONTNEB ONE (22:02)
[2024-07-05] MEDS: IPRATROPIUM NEB FS 0.5 MG/2.5 ML AMPUL.NEB NEB ONE (22:02)
[2024-07-05 22:03] LABS: BASOPHILS % (AUTO) 0.4 % (0.0-2.0); EOSINOPHILS # (AUTO) 0.7 K/uL (0.0-0.7); EOSINOPHILS % (AUTO) 8.8 % (0.0-6.0); HEMATOCRIT 37 % (33-45); HEMOGLOBIN 12.3 g/dL (11.5-14.8); LYMPHOCYTES # (AUTO) 1.4 K/uL (0.8-4.8); LYMPHOCYTES % (AUTO) 19.3 % (20.0-44.0); MEAN CORPUSCULAR HEMOGLOBIN 32 PG (26.0-33.0); MEAN CORPUSCULAR HGB CONC 33 g/dl (31.0-36.0); MEAN CORPUSCULAR VOLUME 96 fL (82-100); MONOCYTES # (AUTO) 0.6 K/uL (0.1-1.30); MONOCYTES % (AUTO) 8.6 % (2.0-12.0); NEUTROPHILS # (AUTO) 4.6 K/uL (1.8-8.9); NEUTROPHILS % (AUTO) 62.9 % (43.0-81.0); PLATELET COUNT (AUTO) 206 K/uL (150-450); RED CELL DISTRIBUTION WIDTH 14.3 % (11.5-15.0); WHITE BLOOD COUNT (AUTO) 7.4 K/uL (4.3-11.0)
[2024-07-05] MEDS ORDERED: ALBUTEROL FS 2.5 MG/3 ML VIAL.NEB ONE (22:03)
[2024-07-05] MEDS ORDERED: IPRATROPIUM NEB FS 0.5 MG/2.5 ML AMPUL.NEB ONE (22:03)
[2024-07-05 22:21] LABS: CALCIUM, SERUM 9.5 mg/dL (8.5-10.1); CARBON DIOXIDE 33 mmol/L (21-32); CHLORIDE 101 mmol/L (98-107); CREATININE 0.8 mg/dL (0.6-1.3); GLUCOSE 98 mg/dL (74-106); POTASSIUM 4.3 mmol/L (3.5-5.1); SODIUM SERUM 139 mmol/L (136-145); UREA NITROGEN, BLOOD 32 mg/dL (7-18)
[2024-07-05 22:29] LABS: ALANINE AMINOTRANSFERASE 22 U/L (12-78); ALBUMIN 3.7 g/dL (3.4-5.0); ALKALINE PHOSPHATASE 51 U/L (46-116); ASPARTATE AMINOTRANSFERASE 26 U/L (15-37); BILIRUBIN,DIRECT 0.1 mg/dL (0.0-0.2); BILIRUBIN,TOTAL 0.5 mg/dL (0.2-1.0); NT-PRO BNP 354 pg/mL (0-125); TOTAL PROTEIN, SERUM 7.4 g/dL (6.4-8.2)
[2024-07-05 23:02] VITALS: O2SAT 100
[2024-07-06] VITALS (15 sets, daily range): BP systolic 111–157; BP diastolic 53–72; TEMP 97.9–98.2; O2SAT 90–99
[2024-07-06] MEDS ORDERED: Z GUARD REMEDY 4 OZ OINT TP PRN (01:30)
[2024-07-06] MEDS ORDERED: SENNOSIDES 8.6 MG TABLET PO PRN (01:30)
[2024-07-06] MEDS ORDERED: MAGNESIUM HYDROXIDE 30 ML UDC PO PRN (01:30)
[2024-07-06] MEDS ORDERED: ONDANSETRON HCL/PF 4 MG/2 ML VIAL IVP PRN (01:30)
[2024-07-06] MEDS ORDERED: IPRATROPIUM NEB FS 0.5 MG/2.5 ML AMPUL.NEB NEB PRN (01:30)
[2024-07-06] MEDS ORDERED: MAG HYDROX/AL HYDROX/SIMETH 30 ML UDC PO PRN (01:30)
[2024-07-06] MEDS ORDERED: ALBUTEROL FS 2.5 MG/0.5 ML VIAL.NEB NEB PRN (01:30)
[2024-07-06] MEDS ORDERED: CEFEPIME 1 GM VIAL ONE (03:58)
[2024-07-06] MEDS: methylPREDNISolone SOD SUCC 40 MG/ML VIAL IV SCH (04:13)
[2024-07-06] MEDS: CEFEPIME 2 GM in IV D5W 100 ML IV ONE (04:14)
[2024-07-06 06:17] LABS: ABG BASE EXCESS 0.4 mmol/L (-2.0-3.0); ABG OXYGEN SATURATION 90.9 % (94.0-98.0); ABG PH 7.462 (7.350-7.450); ABG PO2 60.5 mmHg (83.0-108.0); ABG TOTAL HEMOGLOBIN 12.6 G/dL (12.0-16.0); MetHb 0.3 % (0.0-1.5); O2Hb 90.6 % (94.0-97.0); SITE, ABG Left Radial; VENT MODE, BG ROOM AIR
[2024-07-06 07:29] LABS: BASOPHILS % (AUTO) 0.2 % (0.0-2.0); EOSINOPHILS % (AUTO) 0.2 % (0.0-6.0); HEMATOCRIT 34 % (33-45); HEMOGLOBIN 11.5 g/dL (11.5-14.8); LYMPHOCYTES # (AUTO) 0.4 K/uL (0.8-4.8); MEAN CORPUSCULAR HEMOGLOBIN 32 PG (26.0-33.0); MEAN CORPUSCULAR HGB CONC 33 g/dl (31.0-36.0); MEAN CORPUSCULAR VOLUME 95 fL (82-100); MONOCYTES % (AUTO) 0.7 % (2.0-12.0); NEUTROPHILS # (AUTO) 4.8 K/uL (1.8-8.9); NEUTROPHILS % (AUTO) 90.9 % (43.0-81.0); PLATELET COUNT (AUTO) 182 K/uL (150-450); RED BLOOD CELL COUNT(AUTO) 3.62 MIL/uL (4.0-5.2); RED CELL DISTRIBUTION WIDTH 13.9 % (11.5-15.0); WHITE BLOOD COUNT (AUTO) 5.3 K/uL (4.3-11.0)
[2024-07-06 07:44] LABS: CALCIUM, SERUM 9.6 mg/dL (8.5-10.1); CARBON DIOXIDE 25 mmol/L (21-32); CHLORIDE 102 mmol/L (98-107); CREATININE 0.9 mg/dL (0.6-1.3); GLUCOSE 292 mg/dL (74-106); MAGNESIUM 2.5 mg/dL (1.8-2.4); PHOSPHORUS 2.1 mg/dL (2.5-4.9); POTASSIUM 3.8 mmol/L (3.5-5.1); SODIUM SERUM 138 mmol/L (136-145); UREA NITROGEN, BLOOD 25 mg/dL (7-18)
[2024-07-06] MEDS ORDERED: ZINC220C6 PO (08:38)
[2024-07-06] MEDS: LISINOPRIL (20MG) 20 MG TABLET PO SCH (08:53)
[2024-07-06] MEDS: CHOLECALCIFEROL 1,000 UNIT TABLET (VIT D3) PO SCH (08:53)
[2024-07-06] MEDS: FUROSEMIDE 40 MG TABLET PO SCH (08:53)
[2024-07-06] MEDS: CARVEDILOL 6.25 MG TABLET PO SCH (08:53)
[2024-07-06] MEDS: GUAIFENESIN LA 600 MG TABLET.SA PO SCH (08:53)
[2024-07-06] MEDS: hydrALAZINE HCL 50 MG TABLET PO SCH (08:54)
[2024-07-06] MEDS: ZINC SULFATE 220 MG CAPSULE PO SCH (08:54)
[2024-07-06] MEDS: ASPIRIN 81 MG TAB.CHEW PO SCH (08:54)
[2024-07-06] MEDS: ASCORBIC ACID 500 MG TABLET PO SCH (08:54)
[2024-07-06] MEDS: HEPARIN SODIUM, PORCINE 5000 UNITS/1 ML VIAL SQ ONE (08:55)
[2024-07-06] MEDS ORDERED: Medication Not On Formulary EA (Fluticasone/Umeclidin/Vilanter (Trelegy Ellipta 100-62.5 IH SCH (09:00)
[2024-07-06] MEDS: PROSOURCE / PROSTAT (PYXIS) 30 ML UDC PO SCH (09:22)
[2024-07-06] MEDS: CEFEPIME 2 GM in IV D5W 100 ML IV SCH (09:22)
[2024-07-06] MEDS ORDERED: ALBUTEROL FS 2.5 MG/0.5 ML VIAL.NEB NEB SCH (10:00)
[2024-07-06] MEDS: ALBUTEROL FS 2.5 MG/0.5 ML VIAL.NEB NEB SCH (11:20)
[2024-07-06] MEDS: IPRATROPIUM NEB FS 0.5 MG/2.5 ML AMPUL.NEB NEB SCH (11:21)
[2024-07-06] MEDS: K PHOS NEUTRAL 250 MG TABLET PO ONE (16:21)
[2024-07-06] MEDS: ATORVASTATIN 40 MG TABLET PO SCH (21:56)
[2024-07-06] MEDS: MONTELUKAST SODIUM (10MG) 10 MG TABLET PO SCH (21:56)
[2024-07-06] MEDS: TRAZODONE 50 MG TABLET PO SCH (21:56)
[2024-07-06] MEDS: ACETAMINOPHEN 325 MG TABLET PO PRN (23:36)
[2024-07-06] MEDS: ACETAMINOPHEN W/ CODEINE#3 1 EA TABLET PO PRN (23:41)
[2024-07-07] VITALS (16 sets, daily range): BP systolic 103–141; BP diastolic 40–52; TEMP 97.9–98.4; O2SAT 93–99
[2024-07-07 08:06] LABS: BASOPHILS % (AUTO) 0.2 % (0.0-2.0); EOSINOPHILS % (AUTO) 0.1 % (0.0-6.0); HEMATOCRIT 32 % (33-45); HEMOGLOBIN 10.8 g/dL (11.5-14.8); LYMPHOCYTES # (AUTO) 0.7 K/uL (0.8-4.8); LYMPHOCYTES % (AUTO) 6.3 % (20.0-44.0); MEAN CORPUSCULAR HEMOGLOBIN 33 PG (26.0-33.0); MEAN CORPUSCULAR HGB CONC 34 g/dl (31.0-36.0); MEAN CORPUSCULAR VOLUME 95 fL (82-100); MONOCYTES # (AUTO) 0.4 K/uL (0.1-1.30); MONOCYTES % (AUTO) 4.2 % (2.0-12.0); NEUTROPHILS # (AUTO) 9.5 K/uL (1.8-8.9); NEUTROPHILS % (AUTO) 89.2 % (43.0-81.0); PLATELET COUNT (AUTO) 172 K/uL (150-450); RED BLOOD CELL COUNT(AUTO) 3.34 MIL/uL (4.0-5.2); RED CELL DISTRIBUTION WIDTH 14.3 % (11.5-15.0); WHITE BLOOD COUNT (AUTO) 10.6 K/uL (4.3-11.0)
[2024-07-07 08:16] LABS: CALCIUM, SERUM 8.9 mg/dL (8.5-10.1); CARBON DIOXIDE 28 mmol/L (21-32); CHLORIDE 104 mmol/L (98-107); CREATININE 0.8 mg/dL (0.6-1.3); GLUCOSE 144 mg/dL (74-106); POTASSIUM 4.3 mmol/L (3.5-5.1); SODIUM SERUM 140 mmol/L (136-145); UREA NITROGEN, BLOOD 25 mg/dL (7-18)
[2024-07-07] MEDS: ENOXAPARIN SODIUM 40 MG/0.4 ML DISP.SYRIN SQ SCH (08:58)
[2024-07-07] MEDS ORDERED: PRED50TA PO (11:41)
[2024-07-07] MEDS: ENSURE ENLIVE 237 ML LIQUID (VANILLA) PO SCH (16:20)
[2024-07-08] VITALS (19 sets, daily range): BP systolic 94–114; BP diastolic 49–56; TEMP 97.5–98.3; O2SAT 95–100
[2024-07-08 07:03] LABS: CALCIUM, SERUM 7.9 mg/dL (8.5-10.1); CARBON DIOXIDE 25 mmol/L (21-32); CHLORIDE 103 mmol/L (98-107); CREATININE 0.9 mg/dL (0.6-1.3); GLUCOSE 88 mg/dL (74-106); POTASSIUM 4.1 mmol/L (3.5-5.1); SODIUM SERUM 138 mmol/L (136-145); UREA NITROGEN, BLOOD 30 mg/dL (7-18)
[2024-07-08 07:10] LABS: BASOPHILS # (AUTO) 0.1 K/uL (0.0-0.2); BASOPHILS % (AUTO) 0.8 % (0.0-2.0); EOSINOPHILS # (AUTO) 0.2 K/uL (0.0-0.7); EOSINOPHILS % (AUTO) 3.4 % (0.0-6.0); HEMATOCRIT 33 % (33-45); HEMOGLOBIN 10.7 g/dL (11.5-14.8); LYMPHOCYTES # (AUTO) 1.3 K/uL (0.8-4.8); LYMPHOCYTES % (AUTO) 20.1 % (20.0-44.0); MEAN CORPUSCULAR HEMOGLOBIN 31 PG (26.0-33.0); MEAN CORPUSCULAR HGB CONC 33 g/dl (31.0-36.0); MEAN CORPUSCULAR VOLUME 95 fL (82-100); MONOCYTES # (AUTO) 0.7 K/uL (0.1-1.30); MONOCYTES % (AUTO) 10.5 % (2.0-12.0); NEUTROPHILS # (AUTO) 4.2 K/uL (1.8-8.9); NEUTROPHILS % (AUTO) 65.2 % (43.0-81.0); PLATELET COUNT (AUTO) 189 K/uL (150-450); RED BLOOD CELL COUNT(AUTO) 3.42 MIL/uL (4.0-5.2); RED CELL DISTRIBUTION WIDTH 14.1 % (11.5-15.0); WHITE BLOOD COUNT (AUTO) 6.5 K/uL (4.3-11.0)
[2024-07-08] MEDS: methylPREDNISolone SOD SUCC 40 MG/ML VIAL IV SCH (08:47)
[2024-07-09] VITALS (8 sets, daily range): BP systolic 100–133; BP diastolic 59–60; TEMP 97.8–98.4; O2SAT 96–99
== END 2024-07-09 17:47 | DRG 190 ==
LOC: ER 20:39 → TELE1 07-06 01:44 → MEDSG1 07-08 08:34
PROVIDERS: ATTEND Internal Medicine
DX: J44.1 Chronic obstructive pulmonary disease with (acute) exacerbation (principal); J96.21 Acute and chronic respiratory failure with hypoxia; I13.0 Hypertensive heart and chronic kidney disease with heart failure and stage 1 through stage 4 chronic kidney disease, or unspecified chronic kidney disease; I50.42 Chronic combined systolic (congestive) and diastolic (congestive) heart failure; R64 Cachexia; Z20.822 Contact with and (suspected) exposure to COVID-19; N18.9 Chronic kidney disease, unspecified; E78.5 Hyperlipidemia, unspecified; Z79.82 Long term (current) use of aspirin; Z79.51 Long term (current) use of inhaled steroids; Z79.899 Other long term (current) drug therapy; Z99.81 Dependence on supplemental oxygen; K21.9 Gastro-esophageal reflux disease without esophagitis; F17.210 Nicotine dependence, cigarettes, uncomplicated
CPT/HCPCS: 36415; 36600; 71045-TC; 80048-TC; 80076-TC; 82803-TC; 83735-TC; 83880; 84100-TC; 84484-TC; 85025-TC; 93307-TC; 94799-TC; 97110-TC; 97116-TC; 97530-TC; G0378; J0692; J1644; J1650; J2919; J3475; J7050; J7060

== ENCOUNTER 2024-09-02 14:16 | Inpatient (IN) | payer MEDICARE, OTHER ==
[2024-09-02] VITALS (9 sets, daily range): BP systolic 130–141; BP diastolic 63–80; TEMP 97.9–98.1; O2SAT 96–100
[~2024-09-02] VITALS: Ht 157.5 cm; Wt 42.6 kg
[~2024-09-02 14:16] MED LIST changes: -NITR100C6 PO; +PRED50TA PO; +ZINC220C6 PO; -ZINC50TA69 PO
[2024-09-02] MEDS ORDERED: ONDANSETRON HCL/PF 4 MG/2 ML VIAL IVP PRN (15:00)
[2024-09-02] MEDS ORDERED: MORPHINE SULFATE INJ 2 MG/ML DISP.SYRIN IV PRN (15:00)
[2024-09-02] MEDS ORDERED: FLUT1DIS IH (15:10)
[2024-09-02 15:26] LABS: BASOPHILS % (AUTO) 0.1 % (0.0-2.0); EOSINOPHILS % (AUTO) 0.4 % (0.0-6.0); HEMATOCRIT 41 % (33-45); HEMOGLOBIN 13.2 g/dL (11.5-14.8); LYMPHOCYTES # (AUTO) 0.4 K/uL (0.8-4.8); LYMPHOCYTES % (AUTO) 5.2 % (20.0-44.0); MEAN CORPUSCULAR HEMOGLOBIN 32 PG (26.0-33.0); MEAN CORPUSCULAR HGB CONC 33 g/dl (31.0-36.0); MEAN CORPUSCULAR VOLUME 99 fL (82-100); MONOCYTES # (AUTO) 0.1 K/uL (0.1-1.30); MONOCYTES % (AUTO) 0.8 % (2.0-12.0); NEUTROPHILS # (AUTO) 6.4 K/uL (1.8-8.9); NEUTROPHILS % (AUTO) 93.5 % (43.0-81.0); PLATELET COUNT (AUTO) 200 K/uL (150-450); WHITE BLOOD COUNT (AUTO) 6.9 K/uL (4.3-11.0)
[2024-09-02] MEDS: ALBUTEROL FS 2.5 MG/0.5 ML VIAL.NEB NEB PRN (15:46)
[2024-09-02 15:54] LABS: ALANINE AMINOTRANSFERASE 22 U/L (12-78); ALBUMIN 3.7 g/dL (3.4-5.0); ALKALINE PHOSPHATASE 59 U/L (46-116); ASPARTATE AMINOTRANSFERASE 24 U/L (15-37); BILIRUBIN,TOTAL 0.3 mg/dL (0.2-1.0); CALCIUM, SERUM 9.3 mg/dL (8.5-10.1); CARBON DIOXIDE 27 mmol/L (21-32); CHLORIDE 103 mmol/L (98-107); CREATININE 1.2 mg/dL (0.6-1.3); GLUCOSE 259 mg/dL (74-106); POTASSIUM 3.8 mmol/L (3.5-5.1); SODIUM SERUM 142 mmol/L (136-145); TOTAL PROTEIN, SERUM 7.4 g/dL (6.4-8.2); UREA NITROGEN, BLOOD 30 mg/dL (7-18)
[2024-09-02] MEDS: CARVEDILOL 6.25 MG TABLET PO SCH (17:09)
[2024-09-02] MEDS: MAGNESIUM OXIDE 400 MG TABLET PO ONE (18:26)
[2024-09-02] MEDS: IPRATROPIUM NEB FS 0.5 MG/2.5 ML AMPUL.NEB NEB SCH (20:23)
[2024-09-02] MEDS: GUAIFENESIN LA 600 MG TABLET.SA PO SCH (21:25)
[2024-09-02] MEDS: ATORVASTATIN 40 MG TABLET PO SCH (21:25)
[2024-09-02] MEDS: TRAZODONE 50 MG TABLET PO SCH (21:26)
[2024-09-02] MEDS: MONTELUKAST SODIUM (10MG) 10 MG TABLET PO SCH (21:26)
[2024-09-02] MEDS: HEPARIN SODIUM, PORCINE 5000 UNITS/1 ML VIAL SQ SCH (21:28)
[2024-09-02] MEDS: ACETAMINOPHEN W/ CODEINE#3 1 EA TABLET PO PRN (23:23)
[2024-09-03] VITALS (13 sets, daily range): BP systolic 135–141; BP diastolic 55–77; TEMP 97.9–98.6; O2SAT 95–100
[2024-09-03] MEDS: BUDESONIDE RESPULE INH 0.5 MG/2 ML AMPUL.NEB NEB SCH (07:57)
[2024-09-03] MEDS: ASPIRIN 81 MG TAB.CHEW PO SCH (08:43)
[2024-09-03] MEDS: FUROSEMIDE 40 MG TABLET PO SCH (08:43)
[2024-09-03] MEDS: LISINOPRIL (20MG) 20 MG TABLET PO SCH (08:44)
[2024-09-03] MEDS ORDERED: Medication Not On Formulary EA (Fluticasone/Umeclidin/Vilanter (Trelegy Ellipta 100-62.5 IH SCH (09:00)
[2024-09-03] MEDS: ALBUTEROL HALF STRENGTH 1.25 MG/3 ML VIAL.NEB NEB SCH (10:22)
[2024-09-03 10:24] LABS: MAGNESIUM 2.4 mg/dL (1.8-2.4); PHOSPHORUS 3.1 mg/dL (2.5-4.9)
[2024-09-03] MEDS: SULFAMETH/TRIMETH 800/160 MG 1 UDTAB TABLET PO ONE (10:53)
[2024-09-03] MEDS: methylPREDNISolone SOD SUCC 125 MG/2ML VIAL IV SCH (10:54)
[2024-09-03 11:30] LABS: BASOPHILS % (AUTO) 0.4 % (0.0-2.0); EOSINOPHILS # (AUTO) 0.1 K/uL (0.0-0.7); EOSINOPHILS % (AUTO) 0.7 % (0.0-6.0); HEMATOCRIT 39 % (33-45); HEMOGLOBIN 12.4 g/dL (11.5-14.8); LYMPHOCYTES # (AUTO) 1.5 K/uL (0.8-4.8); LYMPHOCYTES % (AUTO) 17.2 % (20.0-44.0); MEAN CORPUSCULAR HEMOGLOBIN 31 PG (26.0-33.0); MEAN CORPUSCULAR HGB CONC 32 g/dl (31.0-36.0); MEAN CORPUSCULAR VOLUME 98 fL (82-100); MONOCYTES # (AUTO) 0.6 K/uL (0.1-1.30); MONOCYTES % (AUTO) 6.5 % (2.0-12.0); NEUTROPHILS # (AUTO) 6.5 K/uL (1.8-8.9); NEUTROPHILS % (AUTO) 75.2 % (43.0-81.0); PLATELET COUNT (AUTO) 196 K/uL (150-450); RED BLOOD CELL COUNT(AUTO) 3.94 MIL/uL (4.0-5.2); RED CELL DISTRIBUTION WIDTH 13.7 % (11.5-15.0); WHITE BLOOD COUNT (AUTO) 8.7 K/uL (4.3-11.0)
[2024-09-03 11:52] LABS: THYROID STIMULATING HORMONE 0.61 uIU/mL (0.358-3.74)
[2024-09-03 13:03] LABS: ALANINE AMINOTRANSFERASE 27 U/L (12-78); ALBUMIN 3.6 g/dL (3.4-5.0); ALKALINE PHOSPHATASE 57 U/L (46-116); BILIRUBIN,TOTAL 0.3 mg/dL (0.2-1.0); CALCIUM, SERUM 8.8 mg/dL (8.5-10.1); CARBON DIOXIDE 31 mmol/L (21-32); CHLORIDE 101 mmol/L (98-107); CREATININE 0.8 mg/dL (0.6-1.3); GLUCOSE 106 mg/dL (74-106); POTASSIUM 4.2 mmol/L (3.5-5.1); SODIUM SERUM 139 mmol/L (136-145); TOTAL PROTEIN, SERUM 7.1 g/dL (6.4-8.2); UREA NITROGEN, BLOOD 18 mg/dL (7-18)
[2024-09-03 13:20] LABS: ASPARTATE AMINOTRANSFERASE 25 U/L (15-37)
[2024-09-03] MEDS: SULFAMETH/TRIMETH 800/160 MG 1 UDTAB TABLET PO SCH (21:26)
[2024-09-04] VITALS (13 sets, daily range): BP systolic 127–136; BP diastolic 51–76; TEMP 97.9–98.4; O2SAT 93–99
[2024-09-04 15:27] LABS: BASOPHILS % (AUTO) 0.3 % (0.0-2.0); HEMATOCRIT 38 % (33-45); HEMOGLOBIN 12.6 g/dL (11.5-14.8); LYMPHOCYTES # (AUTO) 0.6 K/uL (0.8-4.8); LYMPHOCYTES % (AUTO) 5.4 % (20.0-44.0); MEAN CORPUSCULAR HEMOGLOBIN 33 PG (26.0-33.0); MEAN CORPUSCULAR HGB CONC 33 g/dl (31.0-36.0); MEAN CORPUSCULAR VOLUME 100 fL (82-100); MONOCYTES # (AUTO) 0.2 K/uL (0.1-1.30); MONOCYTES % (AUTO) 1.6 % (2.0-12.0); NEUTROPHILS # (AUTO) 9.5 K/uL (1.8-8.9); NEUTROPHILS % (AUTO) 92.7 % (43.0-81.0); PLATELET COUNT (AUTO) 233 K/uL (150-450); RED BLOOD CELL COUNT(AUTO) 3.83 MIL/uL (4.0-5.2); RED CELL DISTRIBUTION WIDTH 13.7 % (11.5-15.0); WHITE BLOOD COUNT (AUTO) 10.3 K/uL (4.3-11.0)
[2024-09-04 15:42] LABS: CARBON DIOXIDE 28 mmol/L (21-32); CHLORIDE 98 mmol/L (98-107); CREATININE 1.1 mg/dL (0.6-1.3); GLUCOSE 200 mg/dL (74-106); POTASSIUM 4.6 mmol/L (3.5-5.1); SODIUM SERUM 136 mmol/L (136-145); UREA NITROGEN, BLOOD 23 mg/dL (7-18)
[2024-09-04 15:47] LABS: ALANINE AMINOTRANSFERASE 25 U/L (12-78); ALBUMIN 3.4 g/dL (3.4-5.0); ALKALINE PHOSPHATASE 49 U/L (46-116); ASPARTATE AMINOTRANSFERASE 22 U/L (15-37); BILIRUBIN,TOTAL 0.2 mg/dL (0.2-1.0); TOTAL PROTEIN, SERUM 6.8 g/dL (6.4-8.2)
[2024-09-04] MEDS: ACETAMINOPHEN 325 MG TABLET PO PRN (22:59)
[2024-09-05] VITALS (8 sets, daily range): BP systolic 146; BP diastolic 69; TEMP 98; O2SAT 94–100
== END 2024-09-05 14:45 | DRG 190 ==
LOC: MED 14:16 → TELE 16:02 → MED 09-04 11:44
PROVIDERS: ADMIT Internal Medicine; ATTEND Internal Medicine
DX: J44.1 Chronic obstructive pulmonary disease with (acute) exacerbation (principal); J96.21 Acute and chronic respiratory failure with hypoxia; N17.9 Acute kidney failure, unspecified; I50.32 Chronic diastolic (congestive) heart failure; R64 Cachexia; I11.0 Hypertensive heart disease with heart failure; Z79.82 Long term (current) use of aspirin; Z79.51 Long term (current) use of inhaled steroids; Z79.899 Other long term (current) drug therapy; Z72.0 Tobacco use; Z71.6 Tobacco abuse counseling; Z99.81 Dependence on supplemental oxygen; E86.0 Dehydration; I95.89 Other hypotension; E78.5 Hyperlipidemia, unspecified
CPT/HCPCS: 36415; 71250-TC; 80053-TC; 83735-TC; 84100-TC; 84439-TC; 84443-TC; 84484-TC; 85025-TC; 94761-TC; 94799-TC; G0378; J1644; J2919

== ENCOUNTER 2024-10-03 10:05 | Inpatient (IN) | payer MEDICARE, OTHER ==
[2024-10-03] VITALS (8 sets, daily range): O2SAT 97–100
[~2024-10-03] VITALS: Ht 162.6 cm; Wt 50.8 kg
[~2024-10-03 10:05] MED LIST changes: -AMIN30LI27 PO; -ASCO-352 PO; -FLUT1BLS6 IH; +FLUT1DIS IH; -HYDR-4077 PO; +NITR100C6 PO; -PRED50TA PO; -ZINC220C6 PO
[2024-10-03] MEDS ORDERED: CHOL200059 PO (11:15)
[2024-10-03] MEDS ORDERED: DAPA10TA PO (11:15)
[2024-10-03] MEDS ORDERED: HEPA50008 SQ (11:15)
[2024-10-03] MEDS: ALBUTEROL FS 2.5 MG/0.5 ML VIAL.NEB NEB ONE (11:19)
[2024-10-03 11:20] LABS: BASOPHILS # (AUTO) 0.1 K/uL (0.0-0.2); BASOPHILS % (AUTO) 0.6 % (0.0-2.0); EOSINOPHILS # (AUTO) 0.3 K/uL (0.0-0.7); HEMATOCRIT 42 % (33-45); LYMPHOCYTES # (AUTO) 0.9 K/uL (0.8-4.8); LYMPHOCYTES % (AUTO) 10.4 % (20.0-44.0); MEAN CORPUSCULAR HEMOGLOBIN 33 PG (26.0-33.0); MEAN CORPUSCULAR HGB CONC 34 g/dl (31.0-36.0); MEAN CORPUSCULAR VOLUME 97 fL (82-100); MONOCYTES # (AUTO) 0.6 K/uL (0.1-1.30); MONOCYTES % (AUTO) 7.2 % (2.0-12.0); NEUTROPHILS # (AUTO) 6.6 K/uL (1.8-8.9); NEUTROPHILS % (AUTO) 77.8 % (43.0-81.0); PLATELET COUNT (AUTO) 224 K/uL (150-450); RED BLOOD CELL COUNT(AUTO) 4.29 MIL/uL (4.0-5.2); RED CELL DISTRIBUTION WIDTH 13.6 % (11.5-15.0); WHITE BLOOD COUNT (AUTO) 8.5 K/uL (4.3-11.0)
[2024-10-03] MEDS ORDERED: ALBUTEROL FS 2.5 MG/0.5 ML VIAL.NEB ONE (11:22)
[2024-10-03 11:27] LABS: BILIRUBIN,URINE NEGATIVE (NEGATIVE); BLOOD, URINE TRACE-INTA Ery/uL (NEGATIVE); COLOR,URINE YELLOW (YELLOW); KETONES,URINE 1+ mg/dL (NEGATIVE); LEUKOCYTE ESTERASE ,URINE 2+ (NEGATIVE); NITRITE, URINE NEGATIVE (NEGATIVE); PROTEIN,URINE 1+ mg/dl (NEGATIVE); UGLUCOSE 3+ mg/dL (NEGATIVE); UROBILINOGEN,URINE 0.2 EU/dL (0.2)
[2024-10-03 11:30] LABS: ADD URINE CULTURE YES; BACTERIA,URINE Few /HPF (None Seen); CALCIUM, SERUM 9.1 mg/dL (8.5-10.1); CARBON DIOXIDE 33 mmol/L (21-32); CHLORIDE 104 mmol/L (98-107); GLUCOSE 84 mg/dL (74-106); POTASSIUM 3.6 mmol/L (3.5-5.1); SODIUM SERUM 141 mmol/L (136-145); SQUAMOUS EPITHELIAL CELL,UR Few /HPF (None Seen); UREA NITROGEN, BLOOD 25 mg/dL (7-18); WBC,URINE 81-100 /HPF (0-3)
[2024-10-03] MEDS: PIPERACILLIN /TAZOBACTAM 3.375 G in IV D5W 50 ML IV ONE (11:30)
[2024-10-03 11:31] LABS: APPEARANCE,URINE SLIGHTLY HAZY (CLEAR)
[2024-10-03 11:36] LABS: ALANINE AMINOTRANSFERASE 28 U/L (12-78); ALBUMIN 3.7 g/dL (3.4-5.0); ALKALINE PHOSPHATASE 57 U/L (46-116); ASPARTATE AMINOTRANSFERASE 29 U/L (15-37); BILIRUBIN,DIRECT 0.1 mg/dL (0.0-0.2); BILIRUBIN,TOTAL 0.4 mg/dL (0.2-1.0); TOTAL PROTEIN, SERUM 7.1 g/dL (6.4-8.2)
[2024-10-03] MEDS ORDERED: MAG HYDROX/AL HYDROX/SIMETH 30 ML UDC PO PRN (13:30)
[2024-10-03] MEDS ORDERED: ONDANSETRON HCL/PF 4 MG/2 ML VIAL IVP PRN (13:30)
[2024-10-03] MEDS: ALBUTEROL HALF STRENGTH 1.25 MG/3 ML VIAL.NEB NEB PRN (17:20)
[2024-10-03] MEDS: ZOSYN IVPB 2.25 G in IV D5W 50ml IV SCH (17:25)
[2024-10-03] MEDS: CARVEDILOL 6.25 MG TABLET PO SCH (21:04)
[2024-10-03] MEDS: ATORVASTATIN 40 MG TABLET PO SCH (21:04)
[2024-10-03] MEDS: GUAIFENESIN LA 600 MG TABLET.SA PO SCH (21:04)
[2024-10-03] MEDS: MONTELUKAST SODIUM (10MG) 10 MG TABLET PO SCH (21:04)
[2024-10-03] MEDS: TRAZODONE 50 MG TABLET PO PRN (21:35)
[2024-10-04] VITALS (12 sets, daily range): BP systolic 108–138; BP diastolic 47–67; TEMP 97.7–98.5; O2SAT 98–100
[2024-10-04 06:32] LABS: BASOPHILS % (AUTO) 0.7 % (0.0-2.0); EOSINOPHILS # (AUTO) 0.4 K/uL (0.0-0.7); EOSINOPHILS % (AUTO) 6.3 % (0.0-6.0); HEMATOCRIT 37 % (33-45); HEMOGLOBIN 12.3 g/dL (11.5-14.8); LYMPHOCYTES # (AUTO) 1.2 K/uL (0.8-4.8); LYMPHOCYTES % (AUTO) 19.6 % (20.0-44.0); MEAN CORPUSCULAR HEMOGLOBIN 32 PG (26.0-33.0); MEAN CORPUSCULAR HGB CONC 33 g/dl (31.0-36.0); MEAN CORPUSCULAR VOLUME 96 fL (82-100); MONOCYTES # (AUTO) 0.6 K/uL (0.1-1.30); MONOCYTES % (AUTO) 9.6 % (2.0-12.0); NEUTROPHILS # (AUTO) 3.9 K/uL (1.8-8.9); NEUTROPHILS % (AUTO) 63.8 % (43.0-81.0); PLATELET COUNT (AUTO) 188 K/uL (150-450); RED BLOOD CELL COUNT(AUTO) 3.85 MIL/uL (4.0-5.2); RED CELL DISTRIBUTION WIDTH 13.8 % (11.5-15.0); WHITE BLOOD COUNT (AUTO) 6.1 K/uL (4.3-11.0)
[2024-10-04 06:46] LABS: CALCIUM, SERUM 8.5 mg/dL (8.5-10.1); CARBON DIOXIDE 28 mmol/L (21-32); CHLORIDE 105 mmol/L (98-107); CREATININE 0.9 mg/dL (0.6-1.3); GLUCOSE 100 mg/dL (74-106); MAGNESIUM 2.1 mg/dL (1.8-2.4); PHOSPHORUS 3.6 mg/dL (2.5-4.9); POTASSIUM 3.8 mmol/L (3.5-5.1); SODIUM SERUM 142 mmol/L (136-145); UREA NITROGEN, BLOOD 26 mg/dL (7-18)
[2024-10-04] MEDS: DAPAGLIFLOZIN PROPANEDIOL 5 MG TABLET PO SCH (08:18)
[2024-10-04] MEDS: CHOLECALCIFEROL 1,000 UNIT TABLET (VIT D3) PO SCH (08:20)
[2024-10-04] MEDS: FUROSEMIDE 40 MG TABLET PO SCH (08:20)
[2024-10-04] MEDS: ASPIRIN 81 MG TAB.CHEW PO SCH (08:20)
[2024-10-04] MEDS: LISINOPRIL (20MG) 20 MG TABLET PO SCH (08:21)
[2024-10-04] MEDS: FLUTICASONE/VILANTEROL 1 EACH BLST.W.DEV IH SCH (08:21)
[2024-10-04] MEDS: ACETAMINOPHEN 325 MG TABLET PO PRN (21:23)
[2024-10-05] VITALS (10 sets, daily range): BP systolic 105–132; BP diastolic 48–59; TEMP 97.9–98.1; O2SAT 95–100
[2024-10-05] MEDS ORDERED: LOPERAMIDE HCL (2 MG CAP) 2 MG CAPSULE PO PRN
[2024-10-05] MEDS ORDERED: LOPERAMIDE HCL (2 MG CAP) 2 MG CAPSULE ONE (00:57)
[2024-10-05] MEDS: LOPERAMIDE HCL (2 MG CAP) 2 MG CAPSULE PO PRN (00:59)
[2024-10-06] VITALS (9 sets, daily range): BP systolic 99–144; BP diastolic 52–61; TEMP 97.9–98; O2SAT 94–99
[2024-10-06 06:45] LABS: BASOPHILS % (AUTO) 0.7 % (0.0-2.0); EOSINOPHILS # (AUTO) 0.3 K/uL (0.0-0.7); EOSINOPHILS % (AUTO) 5.9 % (0.0-6.0); HEMATOCRIT 34 % (33-45); HEMOGLOBIN 11.5 g/dL (11.5-14.8); LYMPHOCYTES # (AUTO) 1.4 K/uL (0.8-4.8); LYMPHOCYTES % (AUTO) 23.2 % (20.0-44.0); MEAN CORPUSCULAR HEMOGLOBIN 33 PG (26.0-33.0); MEAN CORPUSCULAR HGB CONC 34 g/dl (31.0-36.0); MEAN CORPUSCULAR VOLUME 95 fL (82-100); MONOCYTES # (AUTO) 0.6 K/uL (0.1-1.30); MONOCYTES % (AUTO) 9.6 % (2.0-12.0); NEUTROPHILS # (AUTO) 3.6 K/uL (1.8-8.9); NEUTROPHILS % (AUTO) 60.6 % (43.0-81.0); PLATELET COUNT (AUTO) 183 K/uL (150-450); RED BLOOD CELL COUNT(AUTO) 3.52 MIL/uL (4.0-5.2); RED CELL DISTRIBUTION WIDTH 13.5 % (11.5-15.0); WHITE BLOOD COUNT (AUTO) 5.9 K/uL (4.3-11.0)
[2024-10-06 07:05] LABS: CALCIUM, SERUM 8.2 mg/dL (8.5-10.1); CREATININE 0.9 mg/dL (0.6-1.3); MAGNESIUM 2.2 mg/dL (1.8-2.4); PHOSPHORUS 2.7 mg/dL (2.5-4.9); POTASSIUM 4.1 mmol/L (3.5-5.1)
[2024-10-06] MEDS ORDERED: PIPE2.257 IV (09:23)
== END 2024-10-06 12:27 | DRG 690 ==
LOC: ER 10:24 → TELE1 11:39 → MEDSG1 13:12
PROVIDERS: ADMIT Nurse Practitioner Acute Care; ATTEND Nurse Practitioner Acute Care
DX: N39.0 Urinary tract infection, site not specified (principal); I13.0 Hypertensive heart and chronic kidney disease with heart failure and stage 1 through stage 4 chronic kidney disease, or unspecified chronic kidney disease; I50.32 Chronic diastolic (congestive) heart failure; R64 Cachexia; Z16.24 Resistance to multiple antibiotics; N18.9 Chronic kidney disease, unspecified; J44.9 Chronic obstructive pulmonary disease, unspecified; Z99.81 Dependence on supplemental oxygen; E78.5 Hyperlipidemia, unspecified; Z98.51 Tubal ligation status; Z79.82 Long term (current) use of aspirin; Z79.01 Long term (current) use of anticoagulants; Z79.51 Long term (current) use of inhaled steroids; Z79.899 Other long term (current) drug therapy; Z72.0 Tobacco use
CPT/HCPCS: 36415; 71045-TC; 80048-TC; 80076-TC; 81001; 83735-TC; 84100-TC; 85025-TC; 87040-TC; 87086-TC; 94760-TC; 94799-TC; A4223; G0378; J2543; J3490; J7060

== ENCOUNTER 2025-10-16 22:53 | Inpatient (IN) | payer MEDICARE, OTHER ==
[~2025-10-16] VITALS: Ht 158.8 cm; Wt 36.3 kg
[~2025-10-16 22:53] MED LIST changes: -CHOL100043 PO; +CHOL200059 PO; +DAPA10TA PO; +HEPA50008 SQ; +PIPE2.257 IV
[2025-10-16] MEDS ORDERED: ONDANSETRON HCL/PF 4 MG/2 ML VIAL ONE (23:14)
[2025-10-16] MEDS ORDERED: NITROGLYCERIN PACKET 1 GM PACKET ONE (23:15)
[2025-10-16] MEDS ORDERED: MORPHINE SULFATE INJ 4 MG/ML DISP.SYRIN ONE (23:15)
[2025-10-16 23:20] LABS: PLATELET COUNT (AUTO) 256 K/uL (150-450); RED BLOOD CELL COUNT(AUTO) 4.40 MIL/uL (4.0-5.2); RED CELL DISTRIBUTION WIDTH 14.7 % (11.5-15.0); WHITE BLOOD COUNT (AUTO) 6.1 K/uL (4.3-11.0)
[2025-10-16] MEDS: ONDANSETRON HCL/PF 4 MG/2 ML VIAL IVP ONE (23:22)
[2025-10-16] MEDS: MORPHINE SULFATE INJ 2 MG/ML DISP.SYRIN IV ONE (23:22)
[2025-10-16] MEDS: NITROGLYCERIN PACKET 1 GM PACKET TD ONE (23:23)
[2025-10-16] MEDS ORDERED: GABA-532 PO (23:29)
[2025-10-16] MEDS ORDERED: APIX5TAB PO (23:30)
[2025-10-16 23:33] LABS: INR 1.04 (0.91-1.10)
[2025-10-16 23:38] LABS: CALCIUM, SERUM 9.0 mg/dL (8.5-10.1); CREATININE 0.7 mg/dL (0.6-1.3); SODIUM SERUM 143 mmol/L (136-145); UREA NITROGEN, BLOOD 10 mg/dL (7-18)
[2025-10-16 23:51] LABS: ASPARTATE AMINOTRANSFERASE 34.0 U/L (15-37); NT-PRO BNP 934.0 pg/mL (0-125); TOTAL PROTEIN, SERUM 7.8 g/dL (6.4-8.2)
[2025-10-17] VITALS (19 sets, daily range): BP systolic 144–197; BP diastolic 73–100; TEMP 97.5–98.6; O2SAT 92–100
[2025-10-17] MEDS ORDERED: MAG HYDROX/AL HYDROX/SIMETH 30 ML UDC PO PRN (00:30)
[2025-10-17] MEDS ORDERED: ACETAMINOPHEN 325 MG TABLET PO PRN (00:30)
[2025-10-17] MEDS ORDERED: NALOXONE HCL 4 MG SPRAY NS PRN (00:30)
[2025-10-17] MEDS ORDERED: SENNOSIDES 8.6 MG TABLET PO PRN (00:30)
[2025-10-17] MEDS ORDERED: HYDROCODONE/APAP 5/325MG TABLET PO PRN (00:30)
[2025-10-17] MEDS ORDERED: ONDANSETRON HCL/PF 4 MG/2 ML VIAL IVP PRN (00:30)
[2025-10-17] MEDS ORDERED: Z GUARD REMEDY 4 OZ OINT TP PRN (00:30)
[2025-10-17] MEDS ORDERED: ENOXAPARIN SODIUM 30 MG/0.3 ML DISP.SYRIN SQ SCH (00:30)
[2025-10-17] MEDS ORDERED: MAGNESIUM HYDROXIDE 30 ML UDC PO PRN (00:30)
[2025-10-17] MEDS ORDERED: ALBUTEROL FS 2.5 MG/3 ML VIAL.NEB ONE (00:50)
[2025-10-17] MEDS ORDERED: IPRATROPIUM NEB FS 0.5 MG/2.5 ML AMPUL.NEB ONE (00:50)
[2025-10-17] MEDS: hydrALAZINE HCL IV 20 MG VIAL IV PRN (01:59)
[2025-10-17] MEDS: IPRATROPIUM NEB FS 0.5 MG/2.5 ML AMPUL.NEB NEB PRN (02:22)
[2025-10-17] MEDS: ALBUTEROL FS 2.5 MG/3 ML VIAL.NEB NEB PRN (02:22)
[2025-10-17] MEDS ORDERED: hydrALAZINE HCL IV 20 MG VIAL IV PRN (03:00)
[2025-10-17] MEDS ORDERED: AZITHROMYCIN 500 MG in IV D5W 250 ML IV SCH (08:00)
[2025-10-17] MEDS ORDERED: GUAI-1189 PO (08:27)
[2025-10-17] MEDS ORDERED: MULT-213 PO (08:27)
[2025-10-17] MEDS ORDERED: FLUTICASONE/VILANTEROL 1 EACH BLST.W.DEV IH SCH (09:00)
[2025-10-17] MEDS: TRAZODONE 50 MG TABLET PO ONE (09:10)
[2025-10-17] MEDS: CARVEDILOL 6.25 MG TABLET PO SCH (09:11)
[2025-10-17] MEDS: DAPAGLIFLOZIN PROPANEDIOL 10 MG TABLET PO SCH (09:11)
[2025-10-17] MEDS: PANTOPRAZOLE 40 MG TABLET.DR PO SCH (09:11)
[2025-10-17] MEDS: LISINOPRIL (20MG) 20 MG TABLET PO SCH (09:12)
[2025-10-17] MEDS: AZITHROMYCIN 250 MG TABLET PO SCH (09:12)
[2025-10-17] MEDS: FUROSEMIDE 40 MG TABLET PO SCH (09:13)
[2025-10-17] MEDS: ASPIRIN 81 MG TAB.CHEW PO SCH (09:13)
[2025-10-17] MEDS: CHOLECALCIFEROL 1,000 UNIT TABLET (VIT D3) PO SCH (09:14)
[2025-10-17] MEDS: APIXABAN 5 MG TABLET PO SCH (09:16)
[2025-10-17] MEDS: MOMETASONE/FORMOTEROL 8.8 GM HFA.AER.AD INH SCH (09:21)
[2025-10-17] MEDS: ALBUTEROL HALF STRENGTH 1.25 MG/3 ML VIAL.NEB NEB SCH (10:00)
[2025-10-17] MEDS: IPRATROPIUM NEB FS 0.5 MG/2.5 ML AMPUL.NEB NEB SCH (10:00)
[2025-10-17 12:51] LABS: PLATELET COUNT (AUTO) 249 K/uL (150-450); RED BLOOD CELL COUNT(AUTO) 4.65 MIL/uL (4.0-5.2); RED CELL DISTRIBUTION WIDTH 14.7 % (11.5-15.0); WHITE BLOOD COUNT (AUTO) 7.3 K/uL (4.3-11.0)
[2025-10-17 13:20] LABS: CALCIUM, SERUM 9.3 mg/dL (8.5-10.1); CREATININE 0.7 mg/dL (0.6-1.3); PHOSPHORUS 3.5 mg/dL (2.5-4.9); SODIUM SERUM 142.0 mmol/L (136-145); UREA NITROGEN, BLOOD 13.0 mg/dL (7-18)
[2025-10-17 16:22] LABS: ABG BASE EXCESS 0.0 mmol/L (-2.0-3.0); ABG OXYGEN SATURATION 96.3 % (94.0-98.0); ABG PCO2 34.8 mmHg (32.0-45.0); ABG PH 7.447 (7.350-7.450); ABG PO2 82.7 mmHg (83.0-108.0); ABG TOTAL HEMOGLOBIN 14.5 G/dL (12.0-16.0); FLOW, BLOOD GAS 2.00 L/min (0.00-30.00); FRACTIONATED INSPIRED OXYGEN 28.0 %; SITE, ABG RIGHT BRACHIAL
[2025-10-17] MEDS: GABAPENTIN 100 MG CAPSULE PO SCH (21:18)
[2025-10-17] MEDS: MONTELUKAST SODIUM (10MG) 10 MG TABLET PO SCH (21:18)
[2025-10-17] MEDS: ATORVASTATIN 40 MG TABLET PO SCH (21:18)
[2025-10-18] VITALS (17 sets, daily range): BP systolic 117–148; BP diastolic 56–87; TEMP 97.5–99; O2SAT 95–100
[2025-10-18 08:19] LABS: PLATELET COUNT (AUTO) 261 K/uL (150-450); RED BLOOD CELL COUNT(AUTO) 3.97 MIL/uL (4.0-5.2); RED CELL DISTRIBUTION WIDTH 14.3 % (11.5-15.0); WHITE BLOOD COUNT (AUTO) 12.1 K/uL (4.3-11.0)
[2025-10-18 12:57] LABS: CALCIUM, SERUM 8.4 mg/dL (8.5-10.1); CREATININE 0.8 mg/dL (0.6-1.3); PHOSPHORUS 3.8 mg/dL (2.5-4.9); SODIUM SERUM 135.0 mmol/L (136-145); UREA NITROGEN, BLOOD 23.0 mg/dL (7-18)
[2025-10-18 13:54] LABS: LDL 91 mg/dL (0-99)
[2025-10-18] MEDS: POTASSIUM CHLORIDE 20 MEQ TAB.PRT.SR PO ONE (15:34)
[2025-10-19] VITALS (17 sets, daily range): BP systolic 107–149; BP diastolic 65–71; TEMP 97.5–98.1; O2SAT 93–99
[2025-10-19 07:04] LABS: PLATELET COUNT (AUTO) 228 K/uL (150-450); RED BLOOD CELL COUNT(AUTO) 4.02 MIL/uL (4.0-5.2); RED CELL DISTRIBUTION WIDTH 14.5 % (11.5-15.0); WHITE BLOOD COUNT (AUTO) 9.7 K/uL (4.3-11.0)
[2025-10-19 07:37] LABS: CALCIUM, SERUM 8.8 mg/dL (8.5-10.1); CREATININE 0.7 mg/dL (0.6-1.3); PHOSPHORUS 2.9 mg/dL (2.5-4.9); SODIUM SERUM 141.0 mmol/L (136-145); UREA NITROGEN, BLOOD 24.0 mg/dL (7-18)
[2025-10-19] MEDS: MINERAL OIL/PETROLATUM,WHITE 120 GM JAR TP PRN (08:35)
[2025-10-19] MEDS: POTASSIUM CHLORIDE 20 MEQ TAB.PRT.SR PO ONE (09:38)
[2025-10-20] VITALS (13 sets, daily range): BP systolic 154–159; BP diastolic 71–88; TEMP 97.3–97.7; O2SAT 91–99
[2025-10-21] VITALS (10 sets, daily range): BP systolic 104; BP diastolic 78; TEMP 97.9; O2SAT 85–99
== END 2025-10-21 14:20 | DRG 190 ==
LOC: ER 23:05 → TELE 10-17 00:28 → MED 10-18 11:02
PROVIDERS: ADMIT Nurse Practitioner Acute Care
DX: J44.1 Chronic obstructive pulmonary disease with (acute) exacerbation (principal); E43 Unspecified severe protein-calorie malnutrition; J96.21 Acute and chronic respiratory failure with hypoxia; R64 Cachexia; N39.0 Urinary tract infection, site not specified; Z79.01 Long term (current) use of anticoagulants; I50.32 Chronic diastolic (congestive) heart failure; I13.0 Hypertensive heart and chronic kidney disease with heart failure and stage 1 through stage 4 chronic kidney disease, or unspecified chronic kidney disease; N18.9 Chronic kidney disease, unspecified; I73.9 Peripheral vascular disease, unspecified; Z68.1 Body mass index [BMI] 19.9 or less, adult; F17.210 Nicotine dependence, cigarettes, uncomplicated; E78.5 Hyperlipidemia, unspecified; T69.1XXA Chilblains, initial encounter; L85.3 Xerosis cutis; Z79.51 Long term (current) use of inhaled steroids; Z79.82 Long term (current) use of aspirin; Z79.84 Long term (current) use of oral hypoglycemic drugs; Z79.899 Other long term (current) drug therapy; Z99.81 Dependence on supplemental oxygen
CPT/HCPCS: 36415; 71045-TC; 80048-TC; 80061-TC; 80076-TC; 83735-TC; 83880; 84100-TC; 84484-TC; 85025-TC; 85027-TC; 85378-TC; 85730-TC; 87081-TC; 93307-TC; 94760-TC; 94762-TC; 94799-TC; 97110-TC; 97116-TC; 97530-TC; G0378; J0360; J2270; J2405; J2919